=== PATIENT | female | born 1975 | race Caucasian/White ===

== ENCOUNTER 2021-12-01 11:29 | Outpatient (CLI) | payer MEDICAID, SELFPAY ==
[2021-12-01 15:25] LABS: Albumin* 4.5 g/dL (3.3-5.0); Chloride* 105 mmol/L (96-114)
[2021-12-01 15:26] LABS: Potassium* 4.8 mmol/L (3.6-5.1); Sodium* 142 mmol/L (135-149)
[2021-12-01 15:28] LABS: Aspartate Amino Transferase* 28 U/L (12-35); Bilirubin Total* 0.4 mg/dL (0.1-1.5); Carbon Dioxide* 29 mmol/L (20-32); Creatinine* 1.1 mg/dL (0.5-1.5); Estimated Glomerular Filt Rate 64 ml/min
[2021-12-01 15:29] LABS: Alanine Aminotransferase* 18 U/L (4-35); Alkaline Phosphatase* 120 U/L (40-150); Blood Urea Nitrogen* 15 mg/dL (5-24); Calcium* 9.9 mg/dL (8.4-10.6); Glucose* 105 mg/dL (60-115)
== END 2021-12-01 11:30 | disposition home or self-care (01) ==
PROVIDERS: PCP Family Medicine; Visit Provider Family Medicine
DX: D64.9 Anemia, unspecified (principal); E03.9 Hypothyroidism, unspecified; E78.5 Hyperlipidemia, unspecified; I10 Essential (primary) hypertension; I21.09 ST elevation (STEMI) myocardial infarction involving other coronary artery of anterior wall; I25.10 Atherosclerotic heart disease of native coronary artery without angina pectoris
CPT/HCPCS: 80053; 84443

== ENCOUNTER 2022-03-15 13:52 | Outpatient (CLI) | payer MEDICAID, SELFPAY | END 2022-03-15 13:53 | disposition home or self-care (01) | PROVIDERS: PCP Family Medicine; Visit Provider Family Medicine | DX: E03.9 Hypothyroidism, unspecified (principal); E78.5 Hyperlipidemia, unspecified; I10 Essential (primary) hypertension | CPT/HCPCS: 84443 ==

== ENCOUNTER 2022-04-12 14:34 | Outpatient (CLI) | payer MEDICAID, SELFPAY | END 2022-04-12 14:35 | disposition home or self-care (01) | PROVIDERS: PCP Family Medicine; Visit Provider Family Medicine | DX: E03.9 Hypothyroidism, unspecified (principal); E66.9 Obesity, unspecified; I10 Essential (primary) hypertension; D64.9 Anemia, unspecified | CPT/HCPCS: 80076; 83690 ==

== ENCOUNTER 2022-06-11 20:09 | Emergency (ER) | payer MEDICAID, SELFPAY ==
[2022-06-11 21:05] VITALS: BP 164/118; PULSE 97; RESP 16; TEMP 36.7; O2SAT 97; BMI 32.9
--- NOTE | 2022-06-11 22:11 | ED.ABDPAIN ---
HPI - Abdominal Pain General Time Seen by Provider: 22:11 Date Seen: 06/11/22 Chief Complaint: Abdominal Pain Stated Complaint: lower abdominal and lower back pain Time Seen by Provider: 06/11/22 22:11 Source: patient, RN notes reviewed and other (Urgent care provider) Mode of arrival: ambulatory Limitations: no limitations History of Present Illness HPI narrative: Courtney is a 47-year-old female with history of 3 coronary stents 2 years ago, history of cervical cancer with retained uterus but oophorectomy and fallopian tube removal who comes to the emergency room for evaluation regarding right flank and right lower quadrant pain. Patient notes that she awoke this morning and describes pain in her right lower flank that is radiating around to her right lower quadrant. She states that she also has some discomfort radiating into her anterior upper thighs. She notes no fever or chills. She is mildly nauseated. She has had loose stools but denies any diarrhea or blood in her stools. She states that her urine was very concentrated but she has no pain with urination. This has not happened to her in the past. She denies any recent trauma. Movement somewhat increases her discomfort she does feel bloated and feels like she has gained weight lately. She has not taken anything for pain. She was initially seen in urgent care at which time they felt that she needed to come to the emergency room for CT for possible kidney stones. Patient has had removal of both ovaries, fallopian tubes as well as appendix. Related Data Home Medications Medication Instructions Recorded Confirmed famotidine 40 mg tablet 40 mg PO DAILY 12/01/21 06/11/22 omeprazole 40 mg capsule,delayed 40 mg PO BID 12/01/21 06/11/22 release ondansetron HCl 4 mg tablet 4 mg PO TID PRN 12/01/21 06/11/22 Previous Rx's Medication Instructions Recorded aspirin 81 mg tablet,delayed 81 mg PO QDAY #30 tabs 10/23/21 release (Adult Low Dose Aspirin) buspirone 7.5 mg tablet 7.5 mg PO DIRECTED #90 tabs 12/01/21 carvedilol 6.25 mg tablet 6.25 mg PO BID #90 tabs 12/01/21 lorazepam 1 mg tablet 1 mg PO TID PRN anxiety #30 tabs 12/01/21 losartan 50 mg tablet 50 mg PO DAILY #90 tabs 12/01/21 rosuvastatin 20 mg tablet 20 mg PO DAILY #90 tabs 12/01/21 spironolactone 25 mg tablet 25 mg PO DAILY #90 tabs 12/01/21 levothyroxine 100 mcg tablet 100 mcg PO QDAY #90 tabs 03/16/22 (Synthroid) aluminum hydrox-magnesium carb 254 10 ml PO TID PRN dyspepsia #355 mL 04/12/22 mg-237.5 mg/5 mL oral suspension (Gaviscon Extra Strength) albuterol sulfate 1.25 mg/3 mL 1.25 mg (3 mL) inhalation QID PRN 04/19/22 solution for nebulization bronchospasm #90 mL albuterol sulfate 90 mcg/actuation 2 puff inhalation Q6H PRN 04/19/22 aerosol inhaler shortness of breath or wheezing #8.5 grams nebulizer and compressor #1 ea 04/19/22 Allergies Allergy/AdvReac Type Severity Reaction Status Date / Time No Known Allergies Allergy Unknown Verified 06/11/22 23:06 Review of Systems Status of ROS Reports: 10 or more systems reviewed and unremarkable except as noted in History and below Const Reports: change in weight (Seems increased); Denies: fever or chills Eyes Denies: change in vision ENMT Denies: throat pain, neck pain or difficulty swallowing Cardio Denies: chest pain, swelling of feet/ankles, lightheadedness or shortness of breath with exertion Resp Denies: shortness of breath or cough GI Reports: abdominal pain, nausea and diarrhea (Loose stools. Not watery.); Denies: vomiting or difficulty swallowing Denies: painful urination or urinary frequency Musculo Reports: back pain; Denies: neck pain Integ/Breast Denies: rash Neuro Denies: headache or numbness in extremities Endo Denies: excessive urination PFSH PFS Medical History Hypothyroid ?E03.9 - Hypothyroidism, unspecified (ICD-10) Noncompliance with medication regimen ?Z91.14 - Patient's other noncompliance with medication regimen (ICD-10) Obesity ?E66.9 - Obesity, unspecified (ICD-10) Social History Smoking Status: Current every day smoker How often do you have a drink containing alcohol: never AUDIT-C Alcohol total score: 0 Non-prescribed substance use: denies use Little interest or pleasure in doing things: several days Feeling down, depressed, or hopeless: not at all Exam Narrative: Exam Narrative: Courtney is alert and oriented. She is nontoxic in appearance. External ears eyes nose clear. Heart with regular rate and rhythm lungs are clear to auscultation. Abdomen is protrude her aunt. Tenderness noted in the right upper quadrant right lateral abdomen is maximum discomfort. Right lower quadrant and to a certain extent suprapubic area. She also had CVA tenderness with percussion on the right. Flexion of her hip increase her back pain. Internal rotation external rotation did not change her discomfort. Moving all extremities. Const: Vital Signs, click to edit/add: Vital Signs - 24 hr 06/11/22 21:05 Temperature 98.1 F Pulse Rate [Left P ulse Oximeter] 97 Respiratory Rate 16 Blood Pressure [Ri ght Upper Arm] 164/118 H Pulse Oximetry 97 Oxygen Delivery Me thod Room Air Documenting provider has reviewed patient's vital signs: yes Course Course Hospital Course: Differential diagnosis includes but is not limited to viral gastroenteritis, gastritis, pancreatitis, hepatitis, cholecystitis, bowel obstruction, urinary tract infection, kidney infection, ureteral colic secondary to stone. Will place IV and give normal saline, morphine, Zofran. Will check CBC, comprehensive panel, lipase, urinalysis and ordered CT of the abdomen and pelvis with contrast. Reevaluation(s) Reevaluation #1: Patient notes no improvement with morphine. Will try some Toradol at this time. CT is read as normal by Radiology. Urinalysis without evidence of UTI. Patient states that now does hurt to urinate. Vital Signs Vital signs: Initial Vital Signs Temperature 98.1 F 06/11/22 21:05 Temperature Source Temporal Artery Scan 06/11/22 21:05 Pulse Rate 97 06/11/22 21:05 Respiratory Rate 16 06/11/22 21:05 Blood Pressure 164/118 H 06/11/22 21:05 Blood Pressure Mean 133 H 06/11/22 21:05 Blood Pressure Position Sitting 06/11/22 21:05 Pulse Oximetry 97 05/01/23 21:05 Oxygen Delivery Method Room Air 05/01/23 21:05 Vital Signs Temperature 98.1 F 06/11/22 21:05 Pulse Rate 97 06/11/22 21:05 Respiratory Rate 16 06/11/22 21:05 Blood Pressure 164/118 H 06/11/22 21:05 Pulse Oximetry 97 06/11/22 21:05 Oxygen Delivery Method Room Air 06/11/22 21:05 Temperature 98.1 F 06/11/22 21:05 Pulse Rate 97 06/11/22 21:05 Respiratory Rate 16 06/11/22 21:05 Blood Pressure 164/118 H 06/11/22 21:05 Pulse Oximetry 97 06/11/22 21:05 Oxygen Delivery Method Room Air 06/11/22 21:05 MDM - Abdominal Pain MDM Narrative Medical decision making narrative: 1. Abdominal pain-no definitive cause noted. Patient noted some dysuria while she is here. But there is really no blood in her urine. No fever or leukocytosis or elevated CRP as well. CT did not show any definitive cause of discomfort. At this time with reassuring labs and CTA will send patient home. Morphine did not work for her and thus we are giving her some Toradol. Will discharge her home with Flexeril 10 mg p.o. b.i.d. with no refills. I will also treat her with Macrobid as she is complaining of dysuria. Will await the urine culture. She may discontinue this after the urine cultures returned if it does not show any bacterial growth. Recommend follow-up with primary MD for recheck. 2. Disposition-home at this time. Follow-up as needed. Return for worsening symptoms. Medical Records Attestation: I reviewed the patient's medical records. Lab Data Attestation: I reviewed the patient's lab results. Labs: Lab Results 06/11/22 06/11/22 Range/Units 22:30 22:43 WBC 7.53 (4.50-11.00) K/uL RBC 5.49 H (4.00-5.20) m/uL Hgb 15.7 (12.0-16.0) gm/dL Hct 47.8 (33.0-51.0) % MCV 87 (80-100) fL MCH 29 (26-34) pg MCHC 33 (32-36) gm/dL RDW Coeff of Marsha 14.3 (11.5-15.5) % Plt Count 235 (140-440) K/uL Neut % (Auto) 56.2 (42.0-72.0) % Lymph % (Auto) 28.6 (20-44) % Hendricks % (Auto) 7.0 (0.0-11.0) % Eos % (Auto) 7.4 H (0.0-7.0) % Baso % (Auto) 0.3 (0.0-3.0) % Neut # (Auto) 4.23 (1.7-7.0) K/uL Lymph # (Auto) 2.15 (0.90-2.90) K/uL Hendricks # (Auto) 0.50 (0.00-0.90) K/UL Eos # (Auto) 0.60 H (0.00-0.50) K/uL Baso # (Auto) 0.02 (0.00-0.30) K/uL Sodium 142 (135-149) mmol/L Potassium 3.8 (3.6-5.1) mmol/L Chloride 105 (96-114) mmol/L Carbon Dioxide 28 (20-32) mmol/L BUN 10 (5-24) mg/dL Creatinine 0.9 (0.5-1.5) mg/dL Estimated Creat Clear 62.43 Estimated GFR 80 ml/min Glucose 109 (60-115) mg/dL Calcium 9.7 (8.4-10.6) mg/dL Total Bilirubin 0.5 (0.1-1.5) mg/dL AST 26 (12-35) U/L ALT 26 (4-35) U/L Alkaline Phosphatase 110 (40-150) U/L C-Reactive Protein 0.6 (0.5-1.0) mg/dL Total Protein 7.9 (6.0-8.3) g/dL Albumin 4.9 (3.3-5.0) g/dL Lipase 90 (23-300) U/L Urine Color Yellow (Yellow) Urine Appearance Slightly Cloudy A (Clear) Urine pH 7.0 (5.0-8.5) Ur Specific [place] 1.020 (1.000-1.030) Urine Protein Negative (Negative) Urine Glucose (UA) Negative (Negative) Urine Ketones Negative (Negative) Urine Blood Trace-intact A (Negative) Urine Nitrite Negative (Negative) Urine Bilirubin Negative (Negative) Urine Urobilinogen 0.2 (0.2-1.0) Ur Leukocyte Esterase Negative (Negative) Urine RBC 0-2 (0-2) Urine WBC 0-2 (0-5) Ur Squamous Epith Cells Few (None-Few) Urine Bacteria None (None) Imaging Data CT scan - abdomen: Attestation: I have reviewed the pertinent imaging results. Radiologist's impression: Lower chest: Unremarkable.? Liver: Hepatic steatosis. Spleen: Unremarkable.? Pancreas: Unremarkable.? Gallbladder and bile ducts: Unremarkable.? Adrenal glands: Unremarkable.? Kidneys: No renal stone or hydronephrosis. Normal enhancement the renal parenchyma. GI tract: Colonic diverticulosis. Appendix is not visualized. No inflammatory changes in the pericecal region. Vascular structures: Aortoiliac calcifications. Lymph nodes: Unremarkable.? Miscellaneous: Unremarkable.? No free air or significant free fluid.? Pelvic Organs: Unremarkable.? Bones: Unremarkable for age.? IMPRESSION: The appendix is not visualized but no inflammatory changes are identified in the pericecal region. Normal appearance of the kidneys. Colonic diverticulosis. Hepatic steatosis. Discharge Plan Discharge Clinical Impression: Dysuria, Abdominal pain Patient Disposition: Home, Self-Care Condition: Improved Additional Instructions: Recommend initiation of Macrobid as the antibiotic just in case you have a bladder infection. At the culture comes back negative you may discontinue this medication. I recommend following up with your primary MD for recheck if pain is ongoing. Ibuprofen or Tylenol may be used for discomfort. Flexeril is a muscle relaxer and you may use this for pain. This may be musculoskeletal pain. Note that is Flexeril makes you tired N/C would not want to use alcohol nor drive with this medication. Note for no work today or tomorrow. Return for worsening symptoms, fever. Prescriptions: No Action omeprazole 40 mg capsule,delayed release(DR/EC) 40 mg PO BID famotidine 40 mg tablet 40 mg PO DAILY ondansetron HCl 4 mg tablet 4 mg PO TID PRN carvedilol 6.25 mg tablet 6.25 mg PO BID Qty: 90 5RF Rx Instructions: 1 in am 2 at night buspirone 7.5 mg tablet 7.5 mg PO DIRECTED Qty: 90 5RF Rx Instructions: 1 tablet in am and 2 at night lorazepam 1 mg tablet 1 mg PO TID PRN (Reason: anxiety) Qty: 30 3RF levothyroxine [Synthroid] 100 mcg tablet 100 mcg PO QDAY Qty: 90 1RF Gaviscon Extra Strength 254-237.5 mg/5 mL suspension 10 ml PO TID PRN (Reason: dyspepsia) Qty: 355 1RF aspirin [Adult Low Dose Aspirin] 81 mg tablet,delayed release (DR/EC) 81 mg PO QDAY Qty: 30 0RF losartan 50 mg tablet 50 mg PO DAILY Qty: 90 1RF spironolactone 25 mg tablet 25 mg PO DAILY Qty: 90 1RF rosuvastatin 20 mg tablet 20 mg PO DAILY Qty: 90 1RF albuterol sulfate 90 mcg/actuation HFA aerosol inhaler 2 puff inhalation Q6H PRN (Reason: shortness of breath or wheezing) Qty: 8.5 1RF albuterol sulfate 1.25 mg/3 mL solution for nebulization 1.25 mg inhalation QID PRN (Reason: bronchospasm) Qty: 90 1RF (DME) nebulizer and compressor Device See Rx Instructions .Route Qty: 1 0RF Rx Instructions: As directed Follow Up/Referrals: Fadi Quick MD [Primary Care Provider] - Stand Alone Forms: [facility] Info Instructions
--- NOTE | 2022-06-11 22:18 | CRLHL7_ITS ---
For Patients: As a result of the Century Cures Act, medical imaging exams and procedure reports are released immediately into your electronic medical record. You may view this report before your referring provider. If you have questions, please contact your health care provider. INDICATION: Right lower quadrant and flank pain since this morning TECHNIQUE: CT abdomen and pelvis acquired with 89 cc Isovue 370 IV contrast. COMPARISON: Right upper quadrant ultrasound May 26, 2019 FINDINGS: Lower chest: Unremarkable. Liver: Hepatic steatosis. Spleen: Unremarkable. Pancreas: Unremarkable. Gallbladder and bile ducts: Unremarkable. Adrenal glands: Unremarkable. Kidneys: No renal stone or hydronephrosis. Normal enhancement the renal parenchyma. GI tract: Colonic diverticulosis. Appendix is not visualized. No inflammatory changes in the pericecal region. Vascular structures: Aortoiliac calcifications. Lymph nodes: Unremarkable. Miscellaneous: Unremarkable. No free air or significant free fluid. Pelvic Organs: Unremarkable. Bones: Unremarkable for age. IMPRESSION: The appendix is not visualized but no inflammatory changes are identified in the pericecal region. Normal appearance of the kidneys. Colonic diverticulosis. Hepatic steatosis. Please note that all CT scans at this facility use dose modulation, iterative reconstruction, and/or weight-based dosing when appropriate to reduce radiation dose to as low as reasonably achievable. Dictated by Cheyenne Robles MD @ 06/12/2022 12:06:42 AM (Electronically Signed)
[2022-06-11 22:43] LABS: Appearance Urine Slightly Cloudy (Clear); Bilirubin Urine Negative (Negative); Blood Urine Trace-intact (Negative); Color Urine Yellow (Yellow); Glucose Urine Negative (Negative); Ketones Urine Negative (Negative); Leukocyte Esterase Urine Negative (Negative); Nitrite Urine Negative (Negative); Protein Urine Negative (Negative); Urobilinogen Urine 0.2 (0.2-1.0)
[2022-06-11 22:52] LABS: Basophils Absolute Auto 0.02 K/uL (0.00-0.30); Basophils Percent Auto 0.3 % (0.0-3.0); Eosinophils Percent Auto 7.4 % (0.0-7.0); Hematocrit 47.8 % (33.0-51.0); Hemoglobin* 15.7 gm/dL (12.0-16.0); Immature Granulocytes Abs Auto 0.04 K/uL (0.00-0.30); Immature Granulocytes Pct Auto 0.5 %; Lymphocytes Absolute Auto 2.15 K/uL (0.90-2.90); Lymphocytes Percent Auto 28.6 % (20-44); Mean Corpuscular HGB Conc 33 gm/dL (32-36); Mean Corpuscular Hemoglobin 29 pg (26-34); Mean Corpuscular Volume 87 fL (80-100); Neutrophils Absolute Auto 4.23 K/uL (1.7-7.0); Neutrophils Percent Auto 56.2 % (42.0-72.0); Platelet Count* 235 K/uL (140-440); RDW Coefficient of Variation % 14.3 % (11.5-15.5); Red Blood Count 5.49 m/uL (4.00-5.20); White Blood Count* 7.53 K/uL (4.50-11.00)
[2022-06-11 23:02] LABS: RBC Urine 0-2 (0-2); Squamous Epithelial Cell Urine Few (None-Few); WBC Urine 0-2 (0-5)
[2022-06-11 23:05] LABS: Slide Review Reflex No
[2022-06-11 23:08] LABS: Albumin* 4.9 g/dL (3.3-5.0); Chloride* 105 mmol/L (96-114); Potassium* 3.8 mmol/L (3.6-5.1); Sodium* 142 mmol/L (135-149)
[2022-06-11] MEDS: ONDANSETRON 2 MG/ML inj 4 MG IVP (23:08)
[2022-06-11] MEDS: 0.9 % SODIUM CHLORIDE 1000 ml 1,000 ML IV (23:08)
[2022-06-11] MEDS: MORPHINE 4 MG/ML INJ IVP (23:08)
[2022-06-11 23:10] LABS: Creatinine* 0.9 mg/dL (0.5-1.5); Est. Creatinine Clearance* 62.43; Estimated Glomerular Filt Rate 80 ml/min
[2022-06-11 23:11] LABS: Alkaline Phosphatase* 110 U/L (40-150); Aspartate Amino Transferase* 26 U/L (12-35); Bilirubin Total* 0.5 mg/dL (0.1-1.5); Blood Urea Nitrogen* 10 mg/dL (5-24); Carbon Dioxide* 28 mmol/L (20-32); Glucose* 109 mg/dL (60-115); Lipase* 90 U/L (23-300); Total Protein* 7.9 g/dL (6.0-8.3)
[2022-06-11 23:12] LABS: Alanine Aminotransferase* 26 U/L (4-35); Calcium* 9.7 mg/dL (8.4-10.6)
[2022-06-11 23:14] LABS: C Reactive Protein* 0.6 mg/dL (0.5-1.0)
[2022-06-12] MEDS: KETOROLAC 15 MG/ML inj IVP (00:38)
== END 2022-06-12 00:58 | disposition home or self-care (01) ==
PROVIDERS: Emergency Provider Family Medicine; PCP Family Medicine
DX: R10.9 Unspecified abdominal pain (principal); R30.0 Dysuria
CPT/HCPCS: 36415; 74177; 80053; 81001; 83690; 85025; 86140; 96374; 96375; 99284; 99285; J1885; J2270; J2405; J7030; Q9967

== ENCOUNTER 2022-06-14 17:18 | Emergency (ER) | payer MEDICAID, SELFPAY ==
[2022-06-14] VITALS (14 sets, daily range): BP systolic 142–162; BP diastolic 95–120; PULSE 75–84; RESP 18; TEMP 35.8; O2SAT 97–98; BMI 34.0
--- NOTE | 2022-06-14 17:35 | ED.ABDPAIN ---
HPI - Abdominal Pain General Time Seen by Provider: 17:35 Date Seen: 06/14/22 Chief Complaint: Abdominal Pain Stated Complaint: lower abdominal pain that runs down to legs Time Seen by Provider: 06/14/22 17:36 Source: patient, RN notes reviewed and old records reviewed Mode of arrival: ambulatory Limitations: no limitations History of Present Illness HPI narrative: Courtney is a very pleasant 47-year-old female with history of KS, 2 stents placed, cervical cancer who comes to the emergency room for evaluation regarding abdominal pain that is continuing. Patient initially seen by myself on SaturdayJune 11 after having experienced abdominal pain for for that day. A full workup including laboratory values and a CT did not show any evidence of abnormality in patient was discharged home. She had required narcotic pain medications while awaiting her labs. I did send her home with Abelardoeril after discussion with surgery who felt this was most likely musculoskeletal. Patient returns today as she has had continued pain. She states the pain has somewhat migrated from her right flank right lower quadrant into her left abdomen. She states this pain is terrible and she tried to work but could not sit still. She has tried home medications and they have not worked. She has been on Keflex for a potential UTI and notes that she really has no improvement of discomfort. She has not had fever chills. She has had a few episodes of intermittent vomiting. She has not had any diarrhea but continues to have occasional loose stools. She notes that she was going to follow-up with her primary MD as per our suggestion but her primary center back to the emergency room. Related Data Home Medications Medication Instructions Recorded Confirmed famotidine 40 mg tablet 40 mg PO DAILY 12/01/21 06/11/22 omeprazole 40 mg capsule,delayed 40 mg PO BID 12/01/21 06/11/22 release ondansetron HCl 4 mg tablet 4 mg PO TID PRN 12/01/21 06/11/22 Previous Rx's Medication Instructions Recorded aspirin 81 mg tablet,delayed 81 mg PO QDAY #30 tabs 10/23/21 release (Adult Low Dose Aspirin) buspirone 7.5 mg tablet 7.5 mg PO DIRECTED #90 tabs 12/01/21 carvedilol 6.25 mg tablet 6.25 mg PO BID #90 tabs 12/01/21 lorazepam 1 mg tablet 1 mg PO TID PRN anxiety #30 tabs 12/01/21 losartan 50 mg tablet 50 mg PO DAILY #90 tabs 12/01/21 rosuvastatin 20 mg tablet 20 mg PO DAILY #90 tabs 12/01/21 spironolactone 25 mg tablet 25 mg PO DAILY #90 tabs 12/01/21 levothyroxine 100 mcg tablet 100 mcg PO QDAY #90 tabs 03/16/22 (Synthroid) aluminum hydrox-magnesium carb 254 10 ml PO TID PRN dyspepsia #355 mL 04/12/22 mg-237.5 mg/5 mL oral suspension (Gaviscon Extra Strength) albuterol sulfate 1.25 mg/3 mL 1.25 mg (3 mL) inhalation QID PRN 04/19/22 solution for nebulization bronchospasm #90 mL albuterol sulfate 90 mcg/actuation 2 puff inhalation Q6H PRN 04/19/22 aerosol inhaler shortness of breath or wheezing #8.5 grams nebulizer and compressor #1 ea 04/19/22 hydrocodone 5 mg-acetaminophen 325 1 tab PO Q6H #10 tabs 06/14/22 mg tablet Allergies Allergy/AdvReac Type Severity Reaction Status Date / Time No Known Allergies Allergy Unknown Verified 06/14/22 19:17 Review of Systems Status of ROS Reports: 10 or more systems reviewed and unremarkable except as noted in History and below Const Denies: fever or chills ENMT Denies: throat pain, neck pain or throat swelling Cardio Denies: chest pain, palpitations or shortness of breath with exertion Resp Denies: shortness of breath, cough or wheezing GI Reports: abdominal pain, nausea and vomiting; Denies: diarrhea Denies: urinary frequency Musculo Denies: back pain or neck pain Allergy/Immuno Denies: throat swelling or wheezing PFSH PFSH Medical History Noncompliance with medication regimen ?Z91.14 - Patient's other noncompliance with medication regimen (ICD-10) Obesity ?E66.9 - Obesity, unspecified (ICD-10) Hypothyroid ?E03.9 - Hypothyroidism, unspecified (ICD-10) Social History Smoking Status: Current every day smoker How often do you have a drink containing alcohol: never AUDIT-C Alcohol total score: 0 Non-prescribed substance use: denies use Little interest or pleasure in doing things: several days Feeling down, depressed, or hopeless: not at all service: No Exam Narrative: Exam Narrative: Patient is alert and oriented. Nontoxic in appearance. Heart with regular rate and rhythm. Lungs are clear bilaterally. Abdomen is soft. Diminished bowel sounds but no high-pitched sounds. Lower extremities without edema. Tenderness noted in the right lower suprapubic and left lower quadrants. No rebound tenderness. Const: Vital Signs, click to edit/add: Vital Signs - 24 hr 06/14/22 17:32 06/14/22 18:15 06/14/22 18:31 Temperature 96.4 F L Pulse Rate Pulse Rate [Left P ulse Oximeter] 82 Respiratory Rate 18 Blood Pressure 162/109 H 157/99 H Blood Pressure [Le ft Upper Arm] 149/109 H Pulse Oximetry 97 Oxygen Delivery Me thod Room Air 06/14/22 19:02 06/14/22 19:31 06/14/22 19:37 Temperature Pulse Rate 84 Pulse Rate [Left P ulse Oximeter] Respiratory Rate Blood Pressure 157/103 H 142/95 H Blood Pressure [Le ft Upper Arm] Pulse Oximetry 97 Oxygen Delivery Me thod 06/14/22 19:45 06/14/22 20:00 06/14/22 20:01 Temperature Pulse Rate 78 81 75 Pulse Rate [Left P ulse Oximeter] Respiratory Rate Blood Pressure 156/104 H Blood Pressure [Le ft Upper Arm] Pulse Oximetry 97 98 98 Oxygen Delivery Me thod 06/14/22 20:15 06/14/22 20:30 06/14/22 20:32 Temperature Pulse Rate 76 75 75 Pulse Rate [Left P ulse Oximeter] Respiratory Rate Blood Pressure 158/109 H Blood Pressure [Le ft Upper Arm] Pulse Oximetry 97 98 97 Oxygen Delivery Me thod 06/14/22 20:45 06/14/22 21:01 Temperature Pulse Rate 83 Pulse Rate [Left P ulse Oximeter] Respiratory Rate Blood Pressure 156/120 H Blood Pressure [Le ft Upper Arm] Pulse Oximetry 97 Oxygen Delivery Me thod Documenting provider has reviewed patient's vital signs: yes Course Course Hospital Course: At this time pain continues to be out of proportion to the exam. Will repeat the labs and I do think we are in a position where a where we have to repeat the CT CT given the level of her discomfort. I did state I would not be giving her any narcotics until I had reason to do so but did offer her Toradol 15 mg IV which she has taken. In addition 1 L of normal saline will be infused. Labs will be CBC, comprehensive, bilirubin, CRP. Vital Signs Vital signs: Initial Vital Signs Temperature 96.4 F L 06/14/22 17:32 Temperature Source Temporal Artery Scan 06/14/22 17:32 Pulse Rate 82 06/14/22 17:32 Pulse Rhythm Regular 06/14/22 17:32 Pulse Strength 3+ Normal 06/14/22 17:32 Respiratory Rate 18 06/14/22 17:32 Blood Pressure 149/109 H 06/14/22 17:32 Blood Pressure Mean 122 H 06/14/22 17:32 Blood Pressure Position Sitting 06/14/22 17:32 Pulse Oximetry 97 06/14/22 17:32 Oxygen Delivery Method Room Air 06/14/22 17:32 Vital Signs Temperature 96.4 F L 06/14/22 17:32 Pulse Rate 82 06/14/22 17:32 Respiratory Rate 18 06/14/22 17:32 Blood Pressure 149/109 H 06/14/22 17:32 Pulse Oximetry 97 06/14/22 17:32 Oxygen Delivery Method Room Air 06/14/22 17:32 Temperature 96.4 F L 06/14/22 17:32 Pulse Rate 83 06/14/22 20:45 Respiratory Rate 18 06/14/22 17:32 Blood Pressure 156/120 H 06/14/22 21:01 Pulse Oximetry 97 06/14/22 20:45 Oxygen Delivery Method Room Air 06/14/22 17:32 MDM - Abdominal Pain MDM Narrative Medical decision making narrative: 1. Diverticulitis-patient noted to have potential diverticulitis in her sigmoid colon based on CT. Incomplete picture but probably the most likely scenario that is causing her pain. Even so however patient is describing intense pain to me and laboratory values are reassuring. I have asked that she start Augmentin 875 mg p.o. b.i.d. times 10 days. Would have her use ibuprofen for pain and I will give her a small amount of Rossiter for breakthrough pain. Two tablets given from our stock tonight as we have no Rossiter in instant meds. Further 10 tablets given to the pharmacy. 2. Ocptvuexzxx-hqlxqa-ze with surgery as this pain seems out of proportion to the findings. Push fluids. Return for fever, vomiting, worsening symptoms. Note I did explain to patient that no further narcotics for this particular problem will be giving out of the emergency room. Further narcotics will need to be controlled by 1 physician and that should be her primary MD. Medical Records Attestation: I reviewed the patient's medical records. Lab Data Attestation: I reviewed the patient's lab results. Labs: Lab Results 06/14/22 06/14/22 06/14/22 Range/Units 17:48 18:00 18:04 WBC 7.14 (4.50-11.00) K/uL RBC 5.05 (4.00-5.20) m/uL Hgb 14.5 (12.0-16.0) gm/dL Hct 43.9 (33.0-51.0) % MCV 87 (80-100) fL MCH 29 (26-34) pg MCHC 33 (32-36) gm/dL RDW Coeff of Marsha 14.3 (11.5-15.5) % Plt Count 192 (140-440) K/uL Neut % (Auto) 61.5 (42.0-72.0) % Lymph % (Auto) 24.2 (20-44) % [place] % (Auto) 8.3 (0.0-11.0) % Eos % (Auto) 5.5 (0.0-7.0) % Baso % (Auto) 0.4 (0.0-3.0) % Neut # (Auto) 4.39 (1.7-7.0) K/uL Lymph # (Auto) 1.73 (0.90-2.90) K/uL [place] # (Auto) 0.60 (0.00-0.90) K/UL Eos # (Auto) 0.39 (0.00-0.50) K/uL Baso # (Auto) 0.03 (0.00-0.30) K/uL Sodium 139 (135-149) mmol/L Potassium 3.9 (3.6-5.1) mmol/L Chloride 103 (96-114) mmol/L Carbon Dioxide 26 (20-32) mmol/L BUN 8 (5-24) mg/dL Creatinine 1.0 (0.5-1.5) mg/dL Estimated Creat Clear 53.61 Estimated GFR 71 ml/min Glucose 101 (60-115) mg/dL Calcium 9.7 (8.4-10.6) mg/dL Total Bilirubin 0.6 (0.1-1.5) mg/dL AST 23 (12-35) U/L ALT 20 (4-35) U/L Alkaline Phosphatase 95 (40-150) U/L C-Reactive Protein 0.6 (0.5-1.0) mg/dL Total Protein 7.4 (6.0-8.3) g/dL Albumin 4.5 (3.3-5.0) g/dL Lipase 97 (23-300) U/L Urine Color Yellow (Yellow) Urine Appearance Clear (Clear) Urine pH 6.0 (5.0-8.5) Ur Specific [place] <= 1.005 (1.000-1.030) Urine Protein Negative (Negative) Urine Glucose (UA) Negative (Negative) Urine Ketones Negative (Negative) Urine Blood Trace-intact A (Negative) Urine Nitrite Negative (Negative) Urine Bilirubin Negative (Negative) Urine Urobilinogen 0.2 (0.2-1.0) Ur Leukocyte Esterase Negative (Negative) Urine RBC 0-2 (0-2) Urine WBC 0-2 (0-5) Ur Squamous Epith Cells Few (None-Few) Urine Bacteria None (None) POC Troponin I 0.00 L (0.01-0.04) ng/ml Imaging Data CT scan - abdomen: Attestation: I have reviewed the pertinent imaging results. Radiologist's impression: Lower chest: Bibasilar dependent atelectasis. Liver: Unremarkable. Normal in size and attenuation. No suspicious masses. Gallbladder and bile ducts: Unremarkable. No stones or inflammation. No biliary dilatation. Pancreas: Unremarkable. No mass or inflammation. Spleen: Unremarkable. Normal in size. No masses. Adrenal glands: Unremarkable. No nodules. Kidneys: Unremarkable. No suspicious masses, stones, or hydronephrosis. GI tract: Subtle sigmoid colon thickening without kesha inflammatory changes. Scattered sigmoid diverticuli. Appendix is absent. Vasculature: Abdominal aorta is normal in caliber. Mesenteric arteries are patent. Lymph nodes: No lymphadenopathy. Peritoneum/Abdominal Wall: Unremarkable. No sign of mass or infiltration. No free air or significant free fluid. Pelvis: Unremarkable. Bones: Unremarkable for age. IMPRESSION: Mild colonic thickening in the sigmoid colon may be related to incomplete distention however could be seen in the setting of mild or early diverticulitis or colitis. ECG Data Attestation: I personally reviewed and interpreted this ECG as follows: ECG interpretation date: 06/14/22 Interpretation: EKG by my read shows sinus rhythm at a rate of 81. RS are configuration noted in 2 3 AVF. No acute changes noted however. Discharge Plan Discharge Clinical Impression: Diverticulitis Patient Disposition: Home, Self-Care Condition: Improved Instructions: Diverticulitis (ED) Additional Instructions: Start antibiotics tonight. Augmentin will be put into instant meds. Ibuprofen 600 mg every 8 hours as needed for pain. You may use Vicodin which is a combination medication of a narcotic called hydrocodone and Tylenol for breakthrough pain. Please use this sparingly. This medicine may cause constipation so you would want to be on a stool softener. Follow-up with surgery for a recheck since your pain appears to be much greater than what we are finding on CT. It would be helpful to have a surgeons consult to make sure that we are not missing anything. Consult phone number [phone] Return to the Emergency for fever, vomiting, worsening symptoms. Prescriptions: New hydrocodone-acetaminophen 5-325 mg tablet 1 tab PO Q6H Qty: 10 0RF No Action omeprazole 40 mg capsule,delayed release(DR/EC) 40 mg PO BID famotidine 40 mg tablet 40 mg PO DAILY ondansetron HCl 4 mg tablet 4 mg PO TID PRN carvedilol 6.25 mg tablet 6.25 mg PO BID Qty: 90 5RF Rx Instructions: 1 in am 2 at night buspirone 7.5 mg tablet 7.5 mg PO DIRECTED Qty: 90 5RF Rx Instructions: 1 tablet in am and 2 at night lorazepam 1 mg tablet 1 mg PO TID PRN (Reason: anxiety) Qty: 30 3RF levothyroxine [Synthroid] 100 mcg tablet 100 mcg PO QDAY Qty: 90 1RF Gaviscon Extra Strength 254-237.5 mg/5 mL suspension 10 ml PO TID PRN (Reason: dyspepsia) Qty: 355 1RF aspirin [Adult Low Dose Aspirin] 81 mg tablet,delayed release (DR/EC) 81 mg PO QDAY Qty: 30 0RF losartan 50 mg tablet 50 mg PO DAILY Qty: 90 1RF spironolactone 25 mg tablet 25 mg PO DAILY Qty: 90 1RF rosuvastatin 20 mg tablet 20 mg PO DAILY Qty: 90 1RF albuterol sulfate 90 mcg/actuation HFA aerosol inhaler 2 puff inhalation Q6H PRN (Reason: shortness of breath or wheezing) Qty: 8.5 1RF albuterol sulfate 1.25 mg/3 mL solution for nebulization 1.25 mg inhalation QID PRN (Reason: bronchospasm) Qty: 90 1RF (DME) nebulizer and compressor Device See Rx Instructions .Route Qty: 1 0RF Rx Instructions: As directed Follow Up/Referrals: Fadi Quick MD [Primary Care Provider] - Stand Alone [facility] Info [facility]
[2022-06-14] MEDS: 0.9 % SODIUM CHLORIDE 1000 ml 1,000 ML IV (18:15)
[2022-06-14] MEDS: KETOROLAC 15 MG/ML inj IVP (18:15)
[2022-06-14 18:17] LABS: Basophils Absolute Auto 0.03 K/uL (0.00-0.30); Basophils Percent Auto 0.4 % (0.0-3.0); Eosinophils Absolute Auto 0.39 K/uL (0.00-0.50); Eosinophils Percent Auto 5.5 % (0.0-7.0); Hematocrit 43.9 % (33.0-51.0); Hemoglobin* 14.5 gm/dL (12.0-16.0); Immature Granulocytes Abs Auto 0.01 K/uL (0.00-0.30); Immature Granulocytes Pct Auto 0.1 %; Lymphocytes Absolute Auto 1.73 K/uL (0.90-2.90); Lymphocytes Percent Auto 24.2 % (20-44); Mean Corpuscular HGB Conc 33 gm/dL (32-36); Mean Corpuscular Hemoglobin 29 pg (26-34); Mean Corpuscular Volume 87 fL (80-100); Monocytes Percent Auto 8.3 % (0.0-11.0); Neutrophils Absolute Auto 4.39 K/uL (1.7-7.0); Neutrophils Percent Auto 61.5 % (42.0-72.0); Platelet Count* 192 K/uL (140-440); RDW Coefficient of Variation % 14.3 % (11.5-15.5); Red Blood Count 5.05 m/uL (4.00-5.20); White Blood Count* 7.14 K/uL (4.50-11.00)
[2022-06-14 18:18] LABS: Slide Review Reflex No
[2022-06-14 18:35] LABS: Albumin* 4.5 g/dL (3.3-5.0); Chloride* 103 mmol/L (96-114); Sodium* 139 mmol/L (135-149)
[2022-06-14 18:36] LABS: Potassium* 3.9 mmol/L (3.6-5.1)
[2022-06-14 18:38] LABS: Aspartate Amino Transferase* 23 U/L (12-35); Bilirubin Total* 0.6 mg/dL (0.1-1.5); Carbon Dioxide* 26 mmol/L (20-32); Est. Creatinine Clearance* 53.61; Estimated Glomerular Filt Rate 71 ml/min; Total Protein* 7.4 g/dL (6.0-8.3)
[2022-06-14 18:39] LABS: Alanine Aminotransferase* 20 U/L (4-35); Alkaline Phosphatase* 95 U/L (40-150); Blood Urea Nitrogen* 8 mg/dL (5-24); Calcium* 9.7 mg/dL (8.4-10.6); Glucose* 101 mg/dL (60-115); Lipase* 97 U/L (23-300)
[2022-06-14 18:41] LABS: C Reactive Protein* 0.6 mg/dL (0.5-1.0)
[2022-06-14 18:42] LABS: Appearance Urine Clear (Clear); Bilirubin Urine Negative (Negative); Blood Urine Trace-intact (Negative); Color Urine Yellow (Yellow); Glucose Urine Negative (Negative); Ketones Urine Negative (Negative); Leukocyte Esterase Urine Negative (Negative); Nitrite Urine Negative (Negative); Protein Urine Negative (Negative); Specific Gravity Urine <= 1.005 (1.000-1.030); Urobilinogen Urine 0.2 (0.2-1.0)
--- NOTE | 2022-06-14 18:51 | CRLHL7_ITS ---
For Patients: As a result of the Century Cures Act, medical imaging exams and procedure reports are released immediately into your electronic medical record. You may view this report before your referring provider. If you have questions, please contact your health care provider. INDICATION: Left lower quadrant pain not improving.. TECHNIQUE: CT abdomen and pelvis acquired with 89 cc Isovue 370 IV contrast. COMPARISON: None. FINDINGS: Lower chest: Bibasilar dependent atelectasis. Liver: Unremarkable. Normal in size and attenuation. No suspicious masses. Gallbladder and bile ducts: Unremarkable. No stones or inflammation. No biliary dilatation. Pancreas: Unremarkable. No mass or inflammation. Spleen: Unremarkable. Normal in size. No masses. Adrenal glands: Unremarkable. No nodules. Kidneys: Unremarkable. No suspicious masses, stones, or hydronephrosis. GI tract: Subtle sigmoid colon thickening without kesha inflammatory changes. Scattered sigmoid diverticuli. Appendix is absent. Vasculature: Abdominal aorta is normal in caliber. Mesenteric arteries are patent. Lymph nodes: No lymphadenopathy. Peritoneum/Abdominal Wall: Unremarkable. No sign of mass or infiltration. No free air or significant free fluid. Pelvis: Unremarkable. Bones: Unremarkable for age. IMPRESSION: Mild colonic thickening in the sigmoid colon may be related to incomplete distention however could be seen in the setting of mild or early diverticulitis or colitis. Please note that all CT scans at this facility use dose modulation, iterative reconstruction, and/or weight-based dosing when appropriate to reduce radiation dose to as low as reasonably achievable. Dictated by Alyse Blood MD @ 06/14/2022 8:48:16 PM (Electronically Signed)
[2022-06-14 19:06] LABS: RBC Urine 0-2 (0-2); Squamous Epithelial Cell Urine Few (None-Few); WBC Urine 0-2 (0-5)
--- NOTE | 2022-06-16 12:31 | ED.NURSE ---
[facility] called requesting diagnosis for 06/14/[address] Rasheed. Their computer system had went down that day and the prescriptions received were incomplete. Expaines dx: diverticulitis. No further questions/concerns.
== END 2022-06-14 21:19 | disposition home or self-care (01) ==
PROVIDERS: Emergency Provider Family Medicine; PCP Family Medicine
DX: K57.92 Diverticulitis of intestine, part unspecified, without perforation or abscess without bleeding (principal)
CPT/HCPCS: 36415; 74177; 80053; 81001; 83690; 84484; 85025; 86140; 93005; 96361; 96374; 99284; 99285; J1885; J7030; Q9967

== ENCOUNTER 2022-08-09 14:25 | Outpatient (CLI) | payer MEDICAID, SELFPAY | END 2022-08-09 14:26 | disposition home or self-care (01) | LOC: LKVREF 14:26 | PROVIDERS: PCP Family Medicine; Visit Provider Family Medicine | DX: E78.5 Hyperlipidemia, unspecified (principal); E66.9 Obesity, unspecified; E03.9 Hypothyroidism, unspecified | CPT/HCPCS: 80061 ==

== ENCOUNTER 2023-07-25 13:09 | Outpatient (CLI) | payer MEDICAID, SELFPAY ==
--- OUTSIDE RECORDS SUMMARY | 2023-07-25 13:12 | XMS_ITS | Clinical Summary ---
Author Organization [facility] Address [place], [place] [address] Care Team Providers Care Supervisor Asbestos Removal Name Role Phone Fadi Quick MD Primary Care Provider [phone] Allergies No known active allergies Medications Medication Sig Dispensed Refills Start Date End Date Status ketoconazole 2% topical (NIZORAL) creamIndications:Tin ea corporis Apply topically to affected area(s) 2 times daily. 1 Tube 0 06/23/2015 Active azithromycin (ZITHROMAX Z-RANDAL) 250 mg tabletIndications:Ph aryngitis, unspecified etiology,Bronchitis Take 500 mg (2 tabs) by mouth on day 1, then 250 mg (1 tab) daily for days 2-5. 6 tablet 0 10/20/2015 Active albuterol HFA 90 mcg/actuation inhalerIndications:B ronchitis Inhale 2 Puffs by mouth every 6 hours if needed. 1 Inhaler 0 10/24/2015 Active meclizine (ANTIVERT) 25 mg tabletIndications:Di zziness Take 1 tablet by mouth 3 times daily if needed for Other (Specify) (dizziness). 20 tablet 05/04/2016 Active hydrOXYzine HCl (ATARAX) 25 mg tabletIndications:De rmatitis Take 1-2 tablets by mouth every 6 hours if needed for Itching. 20 tablet 07/26/2018 Active metoprolol tartrate (LOPRESSOR) 50 mg tablet Take 50 mg by mouth once daily. Active rosuvastatin calcium (ROSUVASTATIN ORAL) Take 20 mg by mouth once daily. Active LOSARTAN-HYDROCHLORO THIAZIDE ORAL Take by mouth once daily. Active OMEPRAZOLE ORAL Take by mouth 2 times daily. Active aspirin (ECOTRIN) 81 mg enteric coated tablet Take 81 mg by mouth once daily. Active amLODIPine (NORVASC) 5 mg tablet Take 5 mg by mouth once daily. Active losartan (COZAAR) 50 mg tablet Take 50 mg by mouth once daily. Active busPIRone 7.5 mg tablet Take 7.5 mg by mouth in morning and 15 mg in evening Active carvediloL (COREG) 6.25 mg tablet Take 6.25 mg by mouth two times daily. Active fluticasone propion-salmeteroL (Advair Diskus) 500-50 mcg/Dose diskus inhaler Inhale 1 Puff by mouth two times daily. Active levothyroxine (SYNTHROID) 100 mcg tablet Take 100 mcg by mouth once daily. Active montelukast (SINGULAIR) 10 mg tablet Take 10 mg by mouth once daily. Active spironolactone (ALDACTONE) 25 mg tablet Take 25 mg by mouth once daily. Active tiotropium bromide (Spiriva Respimat) 2.5 mcg/actuation mist for inhalation Inhale 2 Puffs by mouth once daily. Active benzonatate (TESSALON) 100 mg capsuleIndications:I ntermittent asthma with acute exacerbation, unspecified asthma severity Take 1 Capsule (100 mg) by mouth 3 times daily if needed for Cough. 10 Capsule 06/30/2022 Active Active Problems Problem Noted Date Diagnosed Date Moderate persistent asthma with exacerbation Cough with hemoptysis 06/30/2022 Hyperglycemia 06/30/2022 FOUZIA (acute kidney injury) 06/30/2022 Cigarette nicotine dependence without complicati on 06/30/2022 Family History Medical History Relation Name Comments Good Health Brother Good Health Father Diabetes Mother Heart Disease Mother Relation Name Status Comments Brother Father Mother (Age 62) Social History Tobacco Use Types Packs/Day Years Used Date Smoking Tobacco: Every Day Cigarettes Alcohol Use Standard Drinks/Week Comments No 0 (1 standard drink = 0.6 oz pur e alcohol) Social Connections Answer Date Recorded Frequency of Communication with Friends and Fami ly Not on file 06/30/2022 Financial Resource Strain Answer Date R ecorded Difficulty of Paying Living Expenses Not on file 2021 Difficulty of Paying Living Expenses Not on file 2021 Sex and Gender Information Value Date Recorded Sex Assigned at Not on file Gender Identity Not on file Sexual Orientation Not on file Obstetrics History Last Filed Vital Signs Vital Sign Reading Time Taken Comments Blood Pressure 140/86 06/29/2022 9:42 PM CDT Pulse 67 06/29/2022 11:45 PM CDT Temperature 36.8 ??C (98.2 ??F) 06/29/2022 10:11 PM C DT Respiratory Rate 20 06/30/2022 12:37 AM CDT Oxygen Saturation 96% 06/29/2022 11:45 PM CDT Inhaled Oxygen Concentration - - Weight 80.7 kg (178 lb) 06/29/2022 9:42 PM CDT Height 154.9 cm (5' 1) 06/29/2022 9:42 PM CDT Body Mass Index 33.63 06/29/2022 9:42 PM CDT Plan of Treatment Health Maintenance Due Date Last Done Comments Tdap 02/09/1988 Depression screening for age 12+ 1989 HIV for age 15-65 02/09/1992 Hepatitis C screening for ag e 18-79 1995 Tetanus booster 1997 Pap test for age 21-65 1998 BMI (ht and wt on same day) for age 18+ 05/04/2017 05/04/2016, 10/24/2015, 06/23/2015 Colonoscopy through age 75 2022 Lipids for age 45-75 2022 Mammogram for age 45-75 2022 COVID-19 vaccine series ( season) 2022 Influenza for age 9-49 10/13/2023 Pneumococcal series for age 6-64 Aged Out No longer eligible b ased on patient's age to complete this topic Advance Directives * Full Code (Latest Code Status on File) Date Activated Date Inactivated Comments 06/30/2022 12:17 AM 06/30/2022 3:44 AM Question Answer Comments Code Status Discussion: Reviewed Preferences Care Teams Supervisor Asbestos Removal Relationship Specialty Start Date End Date Fadi Quick MD [id number] [place] [address] PCP - General Family Practice 04/07/20
--- OUTSIDE RECORDS SUMMARY | 2023-07-25 13:12 | XMS_ITS | Encounter Summary ---
Author Organization [facility] Address [address] [place] [id number] Care Team Providers Care Production Line Welder Name Role Phone Cheyenne Choudhury MD Primary Care Provider Fadi Quick MD Primary Care Provider [phone] Encounter Details Date Type Department Care Team (Late Contact Info) Description 05/23/2013 Records - [facility] CONVERSION Scan, Non-Provider Social History Tobacco Use Types Packs/Day Years Used Date Smoking Tobacco: Never Assessed Sex and Gender Information Value Date Recorded Sex Assigned at Not on file Gender Identity Not on file Sexual Orientation Not on file documented as of this encounter Plan of Treatment Upcoming Encounters Date Type Department Care Team ([facility] Contact Info) Description 05/04/2106 Records - [facility] CONVERSION Provider, Historical documented as of this encounter Visit Diagnoses Not on filedocumented in this encounter Additional Health Concerns Infection Onset Date Last Indicated Resolved Time Rule Out COVID-19 03/31/2022 03/31/2022 03/31/2022 8:51 PM OPERATIONS ASST Rule Out COVID-19 04/20/2022 04/20/2022 04/20/2022 10:39 AM OPERATIONS ASST documented as of this encounter Care Teams Production Line Welder Relationship Specialty Start Date End Date Cheyenne Choudhury MD PCP - General Family Practice 08/12/16 05/19/20 Fadi Quick MD PCP - General Family Medicine 05/20/20 documented as of this encounter
--- OUTSIDE RECORDS SUMMARY | 2023-07-25 13:12 | XMS_ITS | Referral Summary ---
Author Organization [facility] Address [address] [place] [address] Care Team Providers Care Us Administrative Law Judge Name Role Phone Fadi Quick MD Primary Care Provider [phone] Allergies No known active allergies Medications Medication Sig Dispensed Refills Start Date End Date Status lubiprostone (AMITIZA) 24 MCG capsule Take 24 mcg by mouth 2 times daily (with meals) Active losartan (COZAAR) 50 MG tablet Take 50 mg by mouth daily Active atorvastatin (LIPITOR) 80 MG tablet Take 80 mg by mouth daily Active carvedilol (COREG) 12.5 MG tablet Take 12.5 mg by mouth 2 times daily (with meals) Active clopidogrel (PLAVIX) 75 MG tablet Take 75 mg by mouth daily Active neomycin-polymyxin- hydrocortisone (CORTISPORIN) 3.5-10787-[address] 3 drops into the right ear 4 times daily 10 mL 09/27/2018 Active celecoxib (CELEBREX) 100 MG capsule Take 100 mg by mouth 2 times daily 06/01/2019 Active hydrochlorothiazide (HYDRODIURIL) 25 MG tablet Take 25 mg by mouth daily 08/03/2019 Active metoprolol succinate ER (TOPROL-XL) 50 MG 24 hr tablet 05/29/2019 Active omeprazole (PRILOSEC) [address] capsule Take 40 mg by mouth 2 times daily 06/15/2019 Active rosuvastatin (CRESTOR) 20 MG tablet Take 20 mg by mouth daily 07/26/2019 Active EQ STOOL SOFTENER/LAXATIVE 8.6-50 MG tablet Take 1 tablet by mouth 2 times daily 06/15/2019 Active ASPIRIN LOW DOSE 81 MG EC tablet Take 81 mg by mouth daily 08/14/2019 Active albuterol (PROAIR HFA/PROVENTIL HFA/VENTOLIN HFA) 108 (90 Base) MCG/ACT inhaler Inhale 2 puffs into the lungs every 6 hours as needed for shortness of breath, wheezing or cough 18 g 03/31/2022 Active benzonatate (TESSALON) 100 MG capsule Take 2 capsules (200 mg) by mouth 2 times daily as needed for cough 20 capsule 04/20/2022 Active Active Problems Problem Noted Date Diagnosed Date Abdominal pain 02/13/2018 Immunizations Name Administration Dates Next Due Flu, Unspecified 11/28/2005,12/15/2004, 4 TDAP (Adacel,Boostrix) 11/04/2014 Social History Tobacco Use Types Packs/Day Years Used Date Smoking Tobacco: Every Day Cigarettes Smokeless Tobacco: Never Tobacco Cessation:Ready to Q uit: No; Counseling Given: Yes Alcohol Use Standard Drinks/Week Comments Yes 0 (1 standard drink = 0.6 oz pur e alcohol) Adolescent Education Answer Date Record ed Getting School Help Needed Not on file 11/02 Sex and Gender Information Value Date Recorded Sex Assigned at Not on file Gender Identity Not on file Sexual Orientation Not on file Last Filed Vital Signs Vital Sign Reading Time Taken Comments Blood Pressure 127/88 01/23/2023 11:30 PM PUG MILL OPERATOR HELPER Pulse 69 01/23/2023 11:30 PM PUG MILL OPERATOR HELPER Temperature 36.6 ??C (97.8 ??F) 01/23/2023 9:05 PM CS T Respiratory Rate 16 01/23/2023 9:05 PM PUG MILL OPERATOR HELPER Oxygen Saturation 97% 01/23/2023 11:30 PM PUG MILL OPERATOR HELPER Inhaled Oxygen Concentration - - Weight 83.9 kg (185 lb) 01/23/2023 9:05 PM PUG MILL OPERATOR HELPER Height 157.5 cm (5' 2) 01/23/2023 9:05 PM PUG MILL OPERATOR HELPER Body Mass Index 33.84 01/23/2023 9:05 PM PUG MILL OPERATOR HELPER Plan of Treatment Upcoming Encounters Date Type Department Care Team (Late st Contact Info) Description 05/04/2106 Records - [facility] CONVERSION Provider, Historical Procedures Procedure Name Priority Date/Time Associated Diagnosis Comments COMPREHENSIVE METABOLIC PANEL STAT 01/23/2023 9:22 PM PUG MILL OPERATOR HELPER LIPID PROFILE Routine 06/10/2017 3:35 AM CDT HPV HIGH RISK TYPES DNA CERVICAL Routine 06/18/2014 2:00 PM CDT ABSTRACT PAP (HIM EXTERNAL RESULT) Routine 06/18/2014 from Last 3 Months or Most Recently Relevant to Health Maintenance Results * (ABNORMAL) Comprehensive metabolic panel (01/23/2023 9:22 PM PUG MILL OPERATOR HELPER) Sodium 139 135 - 145 mmol/L 01/23/2023 9:48 PM PUG MILL OPERATOR HELPER [facility] Comment:Reference intervals for this test were updated on 11/06/2022 to more accurately reflect our healthy population. There may be differences in the flagging of prior results with similar values performed with this method. Interpretation of those prior results can be made in the context of the updated reference intervals. Potassium 4.2 3.4 - 5.3 mmol/L 01/23/2023 9:48 PM PUG MILL OPERATOR HELPER [facility] Carbon Dioxide (CO2) 29 22 - 29 mmol/L 01/23/2023 9:48 PM PUG MILL OPERATOR HELPER [facility] Anion Gap 9 7 - 15 mmol/L 01/23/2023 9:48 PM PUG MILL OPERATOR HELPER [facility] Urea Nitrogen 9.6 6.0 - 20.0 mg/dL 01/23/2023 9:48 PM PUG MILL OPERATOR HELPER [facility] Creatinine 1.25(H) 0.51 - 0.95 mg/dL 01/23/2023 9:48 PM PUG MILL OPERATOR HELPER [facility] GFR Estimate 54(L) >60 mL/min/1. 73m2 01/23/2023 9:48 PM PUG MILL OPERATOR HELPER [facility] Calcium 9.9 8.6 - 10.0 mg/dL 01/23/2023 9:48 PM PUG MILL OPERATOR HELPER [facility] Chloride 101 98 - 107 mmol/L 01/23/2023 9:48 PM PUG MILL OPERATOR HELPER [facility] Glucose 120(H) 70 - 99 mg/dL 01/23/2023 9:48 PM PUG MILL OPERATOR HELPER [facility] Alkaline Phosphatase 122 40 - 150 U/L 01/23/2023 9:48 PM PUG MILL OPERATOR HELPER [facility] Comment:Reference intervals for this test were updated on 12/25/2022 to more accurately reflect our healthy population. There may be differences in the flagging of prior results with similar values performed with this method. Interpretation of those prior results can be made in the context of the updated reference intervals. AST 22 0 - 45 U/L 01/23/2023 9:48 PM PUG MILL OPERATOR HELPER [facility] Comment:Reference intervals for this test were updated on 07/23/2022 to more accurately reflect our healthy population. There may be differences in the flagging of prior results with similar values performed with this method. Interpretation of those prior results can be made in the context of the updated reference intervals. ALT 22 0 - 50 U/L 01/23/2023 9:48 PM PUG MILL OPERATOR HELPER [facility] Comment:Reference intervals for this test were updated on 07/23/2022 to more accurately reflect our healthy population. There may be differences in the flagging of prior results with similar values performed with this method. Interpretation of those prior results can be made in the context of the updated reference intervals. Protein Total 7.3 6.4 - 8.3 g/dL 01/23/2023 9:48 PM PUG MILL OPERATOR HELPER [facility] Albumin 4.6 3.5 - 5.2 g/dL 01/23/2023 9:48 PM PUG MILL OPERATOR HELPER [facility] Bilirubin Total 0.4 <=1.2 mg/dL 01/23/2023 9:48 PM PUG MILL OPERATOR HELPER [facility] Blood STRUCTURE OF LEFT UPPER LIMB / Unknown Venipuncture / Unknown 01/23/2023 9:22 PM PUG MILL OPERATOR HELPER 01/23/2023 9:27 PM PUG MILL OPERATOR HELPER Lucila White MD LAB - BLOOD JUANITO DOW [facility] Organization Address City/State/ZIP Co de Phone Number LABORATORY [facility] [address] Lab (1st floor, no room number) [place] [address], [facility] [phone] * (ABNORMAL) Lipid Profile (06/10/2017 3:35 AM CDT) Triglycerides 145 <=149 mg/dL 06/10/2017 4:01 AM CDT [facility] Cholesterol 200(H) <=199 mg/dL 06/10/2017 4:01 AM CDT [facility] LDL Cholesterol Calculated 137(H) <=129 mg/dL 06/10/2017 4:01 AM CDT [facility] Direct Measure HDL 34(L) >=50 mg/dL 06/10/2017 4:01 AM CDT [facility] Blood specimen (specimen) Venipuncture / Unknown 06/10/2017 3:35 AM CDT 06/10/2017 3:40 AM CDT Hussein Jackson MD LAB - BLOOD ORDERABL ES [facility] [address] [place] [address], [facility] [address] [place] [address] * (ABNORMAL) HPV High Risk Types DNA Cervical (06/18/2014 2:00 PM CDT) Interpretation High Risk HPV Type(s) Detected(A) No HPV Type(s) Detected, No High Risk HPV Type(s) Detected, DNA Quantity Not Sufficient 06/25/2014 11:41 AM CDT [facility] Rig Welder Donato Jauregui MD, [facility] 06/25/2014 11:41 AM CDT [facility] Comment: Testing was performed at [facility], [address] [place] [address], [address], with final verification at the indicated laboratory. Specimen of unknown material (specimen) 06/18/2014 2:00 PM CDT 06/23/2014 4:35 AM CDT Narrative [facility] - 06/25/2014 11:41 AM CDT High Risk HPV Type(s) Detected Interpretation: The sample is positive for the presence of DNA from any of the following high risk HPV types (16, 18, 31, 33, 35, 39, 45, 51, 52, 56, 58, 66, and 68). The following HPV type(s) are identified in the submitted sample (16). High risk types are classified by the IARC as carcinogenic, probably, or possible carcinogenic to humans. These results do not exclude the possibility of additional low or high risk HPV types not detected due to adequacy and representativeness of sampling or assay sensitivity. Comments: The presence of high risk HPV types is an established risk factor for the development of cervical dysplasia or neoplasia. Detection of any one of the high risk HPV types aids the assignment of disease risk, and is important for the clinical management of the patient. Methodology: Genomic DNA was extracted from the submitted specimen and amplified by the polymerase chain reaction (PCR) using consensus oligonucleotide primers for the L1 region of the human papillomavirus (HPV) genome. Concurrently, the integrity of the extracted DNA was evaluated by the amplification of beta-globin, a common housekeeping gene. Result interpretation is performed by analysis of peak height and size data generated through fluorescence detection by automated electrophoresis. HPV DNA positive PCR products were subjected to digestion by the restriction endonucleases Hae III, Pst 1, and Rsa 1. Digested DNA fragments were by automated electrophoresis. Digital electropherograms and gel images of data were generated and the specific HPV type was determined by matching the restriction fragment patterns of the respective specimens to that of known HPV restriction fragment patterns. The analytical and performance characteristics of this laboratory-developed test (LDT) were determined by [facility] pursuant to Clinical Laboratory Improvement Amendments (CLIA 88) requirements. It has not been cleared or approved by the U.S. Food and Drug Administration (FDA). The FDA has determined that such clearance or approval is not a requirement prior to use for clinical purposes. Cheyenne Choudhury MD LAB - BLOOD ORDERAB LES Performing Organization Address City/[facility]/ZIP Co de Phone Number [facility] [address] [place] [address], [facility] [address] [place] [address] * (ABNORMAL) ABSTRACT PAP-NO CHARGE (06/18/2014) PAP-ABSTRACT See Scanned Document(A) [facility]) 06/18/2014 Narrative [facility]) - 06/18/2014 PAP SMEAR [facility] Provider Outside LAB - [facility] EXTERNAL R ESULT Performing Organization Address City/[facility]/ZIP Co de Phone Number [facility]) [address] [address], [facility] from Last 3 Months or Most Recently Relevant to Health Maintenance Advance Directives For more information, please contact: [phone] * Full Code (Latest Code Status on File) Date Activated Date Inactivated Comments 02/13/2018 4:23 PM 09/26/2018 11:40 PM Question Answer Comments Code status determined by: Discussion with dk nt/legal decision maker * Full Code Date Activated Date Inactivated Comments 02/13/2018 6:34 AM 02/13/2018 4:23 PM Question Answer Comments Code status determined by: Discussion with dk nt/legal decision maker Care Teams Us Administrative Law Judge Relationship Specialty Start Date End Date Fadi Quick MD PCP - General Family Medicine 05/20/20
--- OUTSIDE RECORDS SUMMARY | 2023-07-25 13:12 | XMS_ITS | Clinical Summary ---
Author Organization [facility] Address [address] [place] [address] Care Team Providers Care Disability Examiner Name Role Phone Fadi Quick MD Primary Care Provider [phone] Allergies No known active allergies Medications Medication [...] by mouth daily Active neomycin-polymyxin- hydrocortisone (CORTISPORIN) 3.5-65156-[address] 3 drops into the [...] Flu, Unspecified 11/28/2005,12/15/2004, 4 TDAP (Adacel,Boostrix) 11/04/2014 Family History Medical History Relation Comments Diabetes Brother Diabetes Father Coronary Artery Disease Mother Diabetes Mother Kidney Disease Mother Relation Status Comments Brother Father Mother Social History Tobacco Use Types Packs/Day Years [...] Comments Blood Pressure 127/88 01/23/2023 11:30 PM PHOTO LAB MANAGER Pulse 69 01/23/2023 11:30 PM PHOTO LAB MANAGER Temperature 36.6 ??C (97.8 ??F) 01/23/2023 9:05 PM CS T Respiratory Rate 16 01/23/2023 9:05 PM PHOTO LAB MANAGER Oxygen Saturation 97% 01/23/2023 11:30 PM PHOTO LAB MANAGER Inhaled Oxygen Concentration - - Weight 83.9 kg (185 lb) 01/23/2023 9:05 PM PHOTO LAB MANAGER Height 157.5 cm (5' 2) 01/23/2023 9:05 PM PHOTO LAB MANAGER Body Mass Index 33.84 01/23/2023 9:05 PM PHOTO LAB MANAGER Plan of Treatment Upcoming Encounters Date Type Department Care Team (Late st Contact Info) Description 05/04/2106 Records - [facility] HE CONVERSION Provider, Historical Health Maintenance Due Date Last Done Comments ANNUAL REVIEW OF HM ORDERS 1977 CT COLONOGRAPHY 1977 FIT 1977 FLEX SIG 1977 MAMMO SCREENING 1977 YEARLY PREVENTIVE VISIT 1977 sDNA (Cologuard) 1977 Pneumococcal Vaccine: Pediatrics (0 to 5 Years) and At-Risk Patients (6 to 64 Years) (1 of 2 - PCV) 1983 COLONOSCOPY 1987 COLORECTAL CANCER SCREENING 1987 HIV SCREENING 02/09/1992 HEPATITIS C SCREENING 1995 HEPATITIS B IMMUNIZATION (1 of 3 - 19+ 3-dose series) 02/09/1996 LIPID 06/10/2018 06/10/2017, 02/11, 05/08/2012, Additional history exists HPV IMMUNIZATION (2 - 3-dose SCDM series) 08/14/2021 07/17/2021 COVID-19 Vaccine ( - season) 2022 04/21/2021, 04/21/2021, 03/21/2021 PHQ-2 (once per calendar year) 2023 ADVANCE CARE PLANNING 02/14/2023 02/14/2018 INFLUENZA VACCINE (Season Ended) 2023 11/28/2005, 11/28/2005, 11/28/2005, Additional history exists DTAP/TDAP/TD IMMUNIZATION (2 - Td or Tdap) 11/04/2024 11/04/2014 GLUCOSE 01/23/2026 01/23/2023, 04/11, 04/07/2022, Additional history exists HPV TEST 04/06/2027 04/06/2022, 06/18/2014 PAP 04/06/2027 04/06/2022, 05/0 09/2014, 06/18/2014 IPV IMMUNIZATION Aged Out No longer e ligible based on patient's age to complete this topic MENINGITIS IMMUNIZATION Aged Out No l onger eligible based on patient's age to complete this topic RSV MONOCLONAL ANTIBODY Aged Out No l onger eligible based on patient's age to complete this topic Procedures Procedure Name Priority Date/Time Associated Diagnosis Comments COMPREHENSIVE METABOLIC PANEL STAT 01/23/2023 9:22 PM PHOTO LAB MANAGER LIPID PROFILE Routine 06/10/2017 3:35 AM CDT HPV HIGH RISK TYPES DNA CERVICAL Routine 06/18/2014 2:00 PM CDT ABSTRACT PAP (HIM EXTERNAL RESULT) Routine 06/18/2014 from Last 3 Months or Most Recently Relevant to Health Maintenance Results * (ABNORMAL) Comprehensive metabolic panel (01/23/2023 9:22 PM PHOTO LAB MANAGER) Sodium 139 135 - 145 mmol/L 01/23/2023 9:48 PM PHOTO LAB MANAGER [facility] Comment:Reference intervals for this test were updated on 11/06/2022 to more accurately reflect our healthy population. There may be differences in the flagging of prior results with similar values performed with this method. Interpretation of those prior results can be made in the context of the updated reference intervals. Potassium 4.2 3.4 - 5.3 mmol/L 01/23/2023 9:48 PM PHOTO LAB MANAGER [facility] Carbon Dioxide (CO2) 29 22 - 29 mmol/L 01/23/2023 9:48 PM PHOTO LAB MANAGER [facility] Anion Gap 9 7 - 15 mmol/L 01/23/2023 9:48 PM PHOTO LAB MANAGER [facility] Urea Nitrogen 9.6 6.0 - 20.0 mg/dL 01/23/2023 9:48 PM PHOTO LAB MANAGER [facility] Creatinine 1.25(H) 0.51 - 0.95 mg/dL 01/23/2023 9:48 PM PHOTO LAB MANAGER [facility] GFR Estimate 54(L) >60 mL/min/1. 73m2 01/23/2023 9:48 PM PHOTO LAB MANAGER [facility] Calcium 9.9 8.6 - 10.0 mg/dL 01/23/2023 9:48 PM PHOTO LAB MANAGER [facility] Chloride 101 98 - 107 mmol/L 01/23/2023 9:48 PM PHOTO LAB MANAGER [facility] Glucose 120(H) 70 - 99 mg/dL 01/23/2023 9:48 PM PHOTO LAB MANAGER [facility] Alkaline Phosphatase 122 40 - 150 U/L 01/23/2023 9:48 PM PHOTO LAB MANAGER [facility] Comment:Reference intervals for this test were updated on 12/25/2022 to more accurately reflect our healthy population. There may be differences in the flagging of prior results with similar values performed with this method. Interpretation of those prior results can be made in the context of the updated reference intervals. AST 22 0 - 45 U/L 01/23/2023 9:48 PM PHOTO LAB MANAGER [facility] Comment:Reference intervals for this test were updated on 07/23/2022 to more accurately reflect our healthy population. There may be differences in the flagging of prior results with similar values performed with this method. Interpretation of those prior results can be made in the context of the updated reference intervals. ALT 22 0 - 50 U/L 01/23/2023 9:48 PM PHOTO LAB MANAGER [facility] Comment:Reference intervals for this test were updated on 07/23/2022 to more accurately reflect our healthy population. There may be differences in the flagging of prior results with similar values performed with this method. Interpretation of those prior results can be made in the context of the updated reference intervals. Protein Total 7.3 6.4 - 8.3 g/dL 01/23/2023 9:48 PM PHOTO LAB MANAGER [facility] Albumin 4.6 3.5 - 5.2 g/dL 01/23/2023 9:48 PM PHOTO LAB MANAGER [facility] Bilirubin Total 0.4 <=1.2 mg/dL 01/23/2023 9:48 PM PHOTO LAB MANAGER LABORATORY Blood STRUCTURE OF LEFT UPPER LIMB / Unknown Venipuncture / Unknown 01/23/2023 9:22 PM PHOTO LAB MANAGER 01/23/2023 9:27 PM PHOTO LAB MANAGER Lucila White MD LAB - BLOOD JUANITO DOW [facility] Organization Address City/State/ZIP Co de Phone Number LABORATORY [facility] [address] [facility]1st floor, no room number) [place] [address] [phone] * (ABNORMAL) Lipid Profile (06/10/2017 3:35 AM CDT) Triglycerides 145 <=149 mg/dL 06/10/2017 4:01 AM CDT [facility] Cholesterol 200(H) <=199 mg/dL 06/10/2017 4:01 AM CDT [facility] LDL Cholesterol Calculated 137(H) <=129 mg/dL 06/10/2017 4:01 AM CDT [facility] Direct Measure HDL 34(L) >=50 mg/dL 06/10/2017 4:01 AM CDT [facility] Blood specimen (specimen) Venipuncture / Unknown 06/10/2017 3:35 AM CDT 06/10/2017 3:40 AM CDT Hussein Jackson MD LAB - BLOOD ORDERABL ES [facility] [address] [place] [address], [facility] [address] [place] [address] * (ABNORMAL) HPV High Risk Types DNA Cervical (06/18/2014 2:00 PM CDT) Interpretation High Risk HPV Type(s) Detected(A) No HPV Type(s) Detected, No High Risk HPV Type(s) Detected, DNA Quantity Not Sufficient 06/25/2014 11:41 AM CDT [facility] Upholstery Tech Donato Jauregui MD, [facility] 06/25/2014 11:41 AM CDT [facility] Comment: Testing was performed at [facility], [address] [place] [address], [facility], with final verification at the indicated laboratory. Specimen of unknown material (specimen) 06/18/2014 2:00 PM CDT 06/23/2014 4:35 AM CDT Narrative [facility] - 06/25/2014 11:41 AM CDT High [...] this laboratory-developed test (LDT) were determined by [facility] pursuant to Clinical Laboratory Improvement Amendments (CLIA 88) requirements. It has not been cleared or approved by the U.S. Food and Drug Administration (FDA). The FDA has determined that such clearance or approval is not a requirement prior to use for clinical purposes. Cheyenne Choudhury MD LAB - BLOOD ORDERAB LES [facility] [address] [place] [address] [address] [place] [address] * (ABNORMAL) ABSTRACT PAP-NO CHARGE (06/18/2014) PAP-ABSTRACT See Scanned Document(A) [facility]) 06/18/2014 Narrative [facility]) - 06/18/2014 PAP SMEAR [facility] Provider Outside LAB - [facility] EXTERNAL R ESULT [facility]) [address] [address], [facility] from Last 3 Months or Most Recently Relevant to Health Maintenance Advance Directives For more information, please contact: [phone] * Full Code (Latest Code Status on File) Date Activated Date Inactivated Comments 02/13/2018 4:23 PM 09/26/2018 11:40 PM Question Answer Comments Code status determined by: Discussion with dk nt/legal decision maker * Full Code Date Activated Date Inactivated Comments 02/13/2018 6:34 AM 02/13/2018 4:23 PM Question Answer Comments Code status determined by: Discussion with dk nt/legal decision maker Care Teams Disability Examiner Relationship Specialty Start Date End Date Fadi Quick MD PCP - General Family Medicine 05/20/20
--- OUTSIDE RECORDS SUMMARY | 2023-07-25 13:13 | XMS_ITS | Encounter Summary ---
Author Organization [facility] Address [address], [place] [address] Care Team Providers Care Crate Tier Name Role Phone Fadi Quick MD Primary Care Provider [phone] Encounter Details Date Type Department Care Team (Late Contact Info) Description 06/09/2017 Flowsheet [facility] [address] [place] [address] Provider, Not On File [address] [place] [address] CONTRAST INJECTION ASSESSMENT Social History Tobacco Use Types Packs/Day Years Used Date Smoking Tobacco: Every Day Cigarettes 1 10 Smokeless Tobacco: Never Comments:10cigs daily Alcohol Use Standard Drinks/Week Comments Yes 0 (1 standard drink = 0.6 oz pur e alcohol) 1-2 times per month Sex and Gender Information Value Date Recorded Sex Assigned at Not on file Gender Identity Not on file Sexual Orientation Not on file documented as of this encounter Plan of Treatment Upcoming Encounters Date Type Department Care Team (Late Contact Info) Description 10/24/2023 1:00 PM CDT [facility]ointment [facility] [address] [place], [place] [id number] Kristin Sands PA-C [address] [facility] [address] [place], [place] [id number] documented as of this encounter Visit Diagnoses Not on filedocumented in this encounter Additional Health Concerns Infection Onset Date Last Indicated Resolved Time R/O COVID19 06/06/2020 06/06/2020 06/06/2020 11:3 3 PM CDT R/O COVID19 06/16/2020 06/16/2020 06/16/2020 11:1 1 PM CDT R/O COVID19 07/12/2020 07/12/2020 07/12/2020 3:13 PM CDT R/O COVID19 07/28/2020 07/28/2020 07/28/2020 8:45 AM CDT documented as of this encounter Care Teams Crate Tier Relationship Specialty Start Date End Date Fadi Quick MD [address] [place] [address] PCP - General Family Practice 06/06/20 documented as of this encounter
--- OUTSIDE RECORDS SUMMARY | 2023-07-25 13:13 | XMS_ITS | Encounter Summary ---
[facility] Organization [facility] Address [address], [place] [address] Care Team Providers Care Drapery And Upholstery Estimator Name Role Phone Fadi Quick MD Primary Care Provider [phone] Encounter Details Date Type Department Care Team (Late Contact Info) Description 04/13/2012 Outside Hospital External to DISCHARGE SUMMARY Social History Tobacco Use Types Packs/Day Years Used Date Smoking Tobacco: Every Day Cigarettes 1 10 Smokeless Tobacco: Never Comments:10cigs daily Alcohol Use Standard Drinks/Week Comments Not Asked 0 (1 standard drink = 0.6 oz pur e alcohol) Sex and Gender Information Value Date Recorded Sex Assigned at Not on file Gender Identity Not on file Sexual Orientation Not on file documented as of this encounter Progress Notes * [facility], PROVIDER - 04/13/2012 12:00 AM CST E FORMER documented in this encounter Plan of Treatment Upcoming Encounters Date Type Department Care Team (Late Contact Info) Description 10/24/2023 1:00 PM CDT [facility]ointment [facility] [address] [place] [address] Kristin Sands, PANirC [address] [facility] [address] [place] [address] documented as of this encounter Visit Diagnoses [...] documented as of this encounter Care Teams Drapery And Upholstery Estimator Relationship Specialty Start Date End Date Fadi Quick MD [address] [place] [address] PCP - General Family Practice 06/06/20 documented as of this encounter
--- OUTSIDE RECORDS SUMMARY | 2023-07-25 13:13 | XMS_ITS ---
Author Organization [facility] Address [address], [place] [address] Care Team Providers Care Real Estate Inspector Name Role Phone Fadi Quick MD Primary Care Provider [phone] Active Problems Problem Noted Date Diagnosed Date Uncontrolled hypertension 11/20/2021 Class 1 obesity due to exces s calories with serious comorbidity and body mass index (BMI) of 32.0 to 32.9 in adult 11/20/2021 History of COVID-19 11/20/2021 Overview: Oct 2021 Hx of cervical cancer 11/20/2021 Overview: 2020 - treated with chemotherapy and radiation PID (acute pelvic inflammatory disease) 08/28/19 21 Elevated troponin 08/27/2020 Malignant neoplasm of exocervix 07/18/2020 Overview: Added automatically from request for surgery [id number] [facility] Review: History: 06/2014: ASCUS, HPV+ 06/2020: Vagina and cervix, biopsy- Invasive squamous cell carcinoma, moderately differentiated. Treatment: chemoradiation and vaginal brachytherapy 03/2021: LSIL, HPV+ Other 03/2022: ASC-H HPV+ Other / no colposcopy 03/2023: LSIL HPV neg Plan, per Kristin Sands PA-C: Continue routine surveillance with test designer onc Abnormal vaginal bleeding 06/17/2020 Acute blood loss anemia 06/17/2020 Squamous cell carcinoma of cervix 06/17/2020 Acute chest pain 06/07/[address] elevation myocardial infarction (S ROXANA) 06/07/2020 Hx of cardiac arrest 06/07/2020 Spontaneous dissection of coronary artery 2020 ST elevation myocardial infa rction involving left anterior descending (LAD) coronary artery 06/03/2020 Status post insertion of dom g-eluting stent into left anterior descending (LAD) artery 06/03/2020 Overview: X 5 05/01/2020 due to SCAD Tobacco abuse 06/03/2020 HTN (hypertension) 06/03/2020 HLD (hyperlipidemia) 06/03/2020 Coronary artery disease invo [place]ving [place] coronary artery of [place] heart without angina pectoris 07/16/2017 Overview: NSTEMI and 06/09/17. ECHO June 2017: EF 54%, hypokinetic basal inferolateral, basal anterolateral, mid inferolateral and mid anterolateral On Plavix until May 2018. 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 Past Plans Medications Plan Name Start Date Discontinue Date Treatment Medications Discontinue Reason Plan Provider HYDRATION THERAPY (FLUIDS) 07/21/2020 06/11/2022 alteplase (CATHFLO ACTIVASE)heparinhe mehdi PF (Pork)magnesium sulfatesodium chloride 0.9 %sodium chloride 0.9% Therapy Complete Benita Sanderson, BUZZLE BUFFER, CDL FLATBED TRUCK DRIVER ONCOLOGY TREATMENT Plan Name Start Date Discontinue Date Treatment Medications Discontinue Reason Plan Provider Cycles CISplatin LOW-DOSE <70 MG/M2 (7D:1) 07/06/1906/11/2022 ALBUterol sulfate HFAalteplase (CATHFLO ACTIVASE)CISplatin IV infusiondexAMETHasone (DECADRON)dexAMETHasone (DECADRON) TabsdexAMETHasone-ondan setron IVPBdiphenhydrAMINE (BENADRYL)EPINEPHrine (EPIPEN)famotidine (PEPCID)fosaprepitant (aka EMEND) IVPBheparinheparin PF (Pork)LORazepam (ATIVAN)methylPREDNISol one sodium succinate PF (SOLU-medrol)OLANZapine (ZyPREXA)ondansetron (ZOFRAN)prochlorperazin e (COMPAZINE)sodium chloride 0.9 %sodium chloride 0.9% Therapy Complete Domitila Bustillos MD 5 of 5 cycles started Radiation Treatments * No radiation treatments are documented for this patient in [facility]. Treatments may have been administered in another system. Resolved Problems Problem Noted Date Diagnosed Date Resolved Date Chest pain 06/09/2017 07/16/2017
--- OUTSIDE RECORDS SUMMARY | 2023-07-25 13:13 | XMS_ITS | Encounter Summary ---
Author Organization [facility] Address [address], [place] [address] Care Team Providers Care Freelance Programmer/App Developer Name Role Phone Fadi Quick MD Primary Care Provider [phone] Encounter Details Date Type Department Care Team (Late Contact Info) Description 09/16/1997 Orders Only [facility] [address] [place] [address] Samia Covington MD Social History Tobacco Use Types Packs/Day Years [...] PM CDT Appointment [facility] [address] [place] [address] Kristin Sands PA-C [address] [facility] 5 [place], [place] [address] documented as of this encounter Visit Diagnoses [...] documented as of this encounter Care Teams Freelance Programmer/App Developer Relationship Specialty Start Date End Date Fadi Quick MD [address] [place] [address] PCP - General Family Practice 06/06/20 documented as of this encounter
--- OUTSIDE RECORDS SUMMARY | 2023-07-25 13:13 | XMS_ITS | Encounter Summary ---
Author Organization [facility] Address [address] [address] Care Team Providers Care It Infrastructure Manager Name Role Phone Fadi Quick MD Primary Care Provider [phone] Encounter Details Date Type Department Care Team (Late Contact Info) Description 04/13/2012 Outside Hospital External to MEDS INSTRUCTIONS Social History Tobacco Use Types Packs/Day Years [...] as of this encounter Progress Notes * [facility], PROVIDER - 04/13/2012 12:00 AM CST documented in this encounter Plan of Treatment Upcoming Encounters Date Type Department Care Team (Late Contact Info) Description 10/24/2023 1:00 PM CDT Appointment [facility] [address] [place] [address] Kristin Sands, PANirC [address] [facility] [address] [place] [address] documented as of this encounter Visit Diagnoses [...] documented as of this encounter Care Teams It Infrastructure Manager Relationship Specialty Start Date End Date Fadi Quick MD [address] [place] [address] PCP - General Family Practice 06/06/20 documented as of this encounter
--- OUTSIDE RECORDS SUMMARY | 2023-07-25 13:13 | XMS_ITS | Clinical Summary ---
Author Organization [facility] Address [address] [place] [address] Care Team Providers Care Lines Tender Name Role Phone Fadi Quick MD Primary Care Provider [phone] Source Comments You are receiving this document as you are listed as the primary care provider,follow-up provider, or the patient has been referred to you for consultation.This is in compliance with the Medicare andProm[facility] Hospitalcaid EHR Incentive Program,which states Providers who transition their patient to another setting of careor provider of care or refers their patient to another provider of care shouldprovide summary care record for each transition of care or referral. [employer] Allergies Active Allergy Reactions Criticality Noted Date Comments Amlodipine Headache 04/25/2023 Medications Medication Sig Dispensed Refills Start Date End Date Status omeprazole (PRILOSEC) 40 MG capsule Take 1 Capsule (40 mg) by mouth every evening. Take 1 hour before a meal. Active aspirin 81 MG chewable tablet Chew and swallow 1 Tablet (81 mg) by mouth daily. Active rosuvastatin (CRESTOR) 20 MG tablet Take 1 Tablet by mouth daily. 90 Tablet 3 06/03/2020 Active spironolactone (ALDACTONE) 25 MG tablet Take 1 Tablet by mouth daily. 90 Tablet 06/09/2020 Active busPIRone (BUSPAR) 7.5 MG tablet Take 2 Tablets (15 mg) by mouth daily at bedtime. Active ondansetron (ZOFRAN-ODT) 4 MG disintegrating tablet Take 1-2 Tablets by mouth every 6 hours as needed for Nausea. 30 Tablet 3 12/26/2020 Active nystatin cream Apply twice daily 30 g 2 04/06/2022 Active carvedilol (COREG) 6.25 MG tabletIndications:Spon taneous dissection of coronary artery (HRC) Take 1 Tablet (6.25 mg) by mouth two times a day with meals. 90 Tablet 3 04/27/2022 Active montelukast (SINGULAIR) 10 MG tablet Take 1 Tablet (10 mg) by mouth daily. Active LORazepam (ATIVAN) 1 MG tablet Take 1 Tablet (1 mg) by mouth three times a day as needed. 02/07/2023 Active rosuvastatin (CRESTOR) 20 MG tablet Take 1 Tablet (20 mg) by mouth. Active spironolactone (ALDACTONE) 25 MG tablet Take 1 Tablet (25 mg) by mouth. Active losartan (COZAAR) 25 MG tabletIndications:Hype rtension, unspecified type (HRC) Take 1 Tablet (25 mg) by mouth daily. 90 Tablet 3 04/25/2023 04/24/2024 Active Active Problems Problem Noted Date Diagnosed [...] Overview: Added automatically from request for surgery [id number] [facility] Review: History: 06/2014: ASCUS, HPV+ 06/2020: Vagina and cervix, biopsy- Invasive squamous cell carcinoma, moderately differentiated. Treatment: chemoradiation and vaginal brachytherapy 03/2021: LSIL, HPV+ Other 03/2022: ASC-H HPV+ Other / no colposcopy 03/2023: LSIL HPV neg Plan, per Kristin Sands PA-C: Continue routine surveillance with parts consultant onc Abnormal vaginal bleeding 06/17/2020 Acute blood [...] (hyperlipidemia) 06/03/2020 Coronary artery disease invo [place]ving [place] coronary artery of [place] heart without angina pectoris 07/16/2017 Overview: NSTEMI and 06/09/17. ECHO June 2017: EF 54%, hypokinetic basal inferolateral, basal anterolateral, mid inferolateral and mid anterolateral On Plavix until May 2018. 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 Oncology Treatment Rooms [address] [place] [address] Domitila Bustillos MD 05/24/2023 Notes/Orders [facility] Oncology Treatment Rooms [address] [place] [address] Domitila Bustillos MD 04/25/2023 3:00 PM CDT Office Visit Marilu Ureña [place] [id number] [place] [id number] Daniel Bravo MD Hypertension, unspecified type (HRC) (Primary Dx) from Last 3 Months Immunizations Name Administration Dates Next Due 9vHPV (Gardasil 9) 07/17/2021 Flu Vac (3+ yrs) 11/28/2005,12/15/2004, 4 Pfizer Monovalent 12+ 04/21/2021 Pfizer Monovalent 12+ Purple Top 03/21/2021 Tdap 11/04/2014 Family History Medical History Relation Name Comments Diabetes, Type II Father Liver Disease Father Cataract Mother Coronary Artery Disease Mother Diabetes Mother Diabetes, Type II Mother Heart Disease Mother Hypertension Mother Asthma Brother Glaucoma Negative Family History Macular Degeneration Negative Family History Relation Name Status Comments Father Mother Brother Daughter 1 Alive Daughter 2 Alive Maternal Grandfather Maternal Grandmother Paternal Grandfather Paternal Grandmother Son Alive Social History Tobacco Use Types Packs/Day Years Used Date Smoking Tobacco: Every Day Cigarettes 0.3 10 Started: 06/01/2010; Last attempted to quit: 06/01/2020 Smokeless Tobacco: Never Tobacco Cessation:Ready to Q uit: Not Asked; Counseling Given: Not Answered Comments:4 cigarettes/day, off/on since age of 17 or 18 Alcohol Use Standard Drinks/Week Comments Yes 0 (1 standard drink = 0.6 oz pur e alcohol) 1-2 times per month Sex and Gender Information Value Date Recorded Sex Assigned at Not on file Gender Identity Not on file Sexual Orientation Not on file Last Filed Vital Signs Vital Sign Reading Time Taken Comments Blood Pressure 134/95 04/25/2023 2:57 PM CDT Pulse 76 04/25/2023 2:57 PM CDT Temperature 37 ??C (98.6 ??F) 11/19/2021 10: 37 PM CDT Respiratory Rate 20 11/20/2021 2:11 PM CDT Oxygen Saturation 93% 11/20/2021 1:30 PM CDT Inhaled Oxygen Concentration - - Weight 81.6 kg (179 lb 12.8 oz) 04/25/2023 2:57 PM CDT Height 157.5 cm (5' 2) 04/25/2023 2:57 PM CDT Body Mass Index 32.89 04/25/2023 2:57 PM CDT Plan of Treatment Upcoming Encounters Date Type Department Care Team (Late st Contact Info) Description 10/24/2023 1:00 PM CDT [facility]ment [facility] [address] [place] [address] Kristin Sands PA-C [address] [facility] [address] [place] [address] Health Maintenance Due Date Last Done Comments Colon Cancer Screening Plan Due 1977 Hep C Screening (Preventive Services) 1977 MTM Targeted 1977 Pneumococcal (1 - PCV) 1983 Adult Preventive Visit 1995 HepB (1) 02/09/1996 Zoster/Shingles (1 of 2) 02/09/1996 COVID-19 Vaccine (3 - Pfizer risk series) 05/19/2021 04/21/2021, 03/21/2021 Influenza (Season Ended) 2023 006, 12/15/2004, 12/31/2003 Cervical Cancer Screening 04/10/20242023, 04/06/2022, 03/28/2021, Additional history exists DTaP/Tdap/Td (2 - Tdap) 11/04/2024 11/04/2014 Diabetes Screening- (based on age and BMI) 06/29/2025 06/29/2022, 06/07/2020 Cholesterol 08/27/2025 08/27/2020, 05/13, 06/04/2017 HIV Screening (Preventive Services) Completed 09/05/2020, 08/26/2020, 12/28/2004, Additional history exists HepA Aged Out No longer eligi ble based on patient's age to complete this topic Hib Aged Out No longer eligi ble based on patient's age to complete this topic IPV (Polio) Aged Out No longer eligi ble based on patient's age to complete this topic MCV4 Aged Out No longer eligi ble based on patient's age to complete this topic Procedures Procedure Name Priority Date/Time Associated Diagnosis Comments PAP TEST Routine 04/11/2023 2:16 PM KIESELGUHR REGENERATOR OPERATOR Squamous cell carcinoma of cervix (HRC) HGB A1C (EXTERNAL RESULT) Routine 06/29/2022 10:05 PM CDT HIV 1/2 AG/AB 4TH GEN Routine 09/05/2020 11:15 AM CDT Screen for STD (sexually transmitted disease) LIPID PANEL & DIRECT LDL (IF NEEDED) Routine 08/27/2020 4:16 AM CDT from Last 3 Months or Most Recently Relevant to Health Maintenance Results * (ABNORMAL) PAP Test (04/11/2023 2:16 PM KIESELGUHR REGENERATOR OPERATOR) Case Report Pap ? Case: [id number] ? Authorizing Provider: ??Kristin Sands PA-C ? Collected: ? 04/11/2023 1416 ? [facility]ing Location: [facility]: ?04/11/2023 1434 ? Oncology ? First Screen: ?Rosamaria Bangura ? Pathologist: ? Williams Rodriguez MD ? Specimen: ?Pap Test, Routine, Cervix/Endocervix ? 05/08/2023 5:04 PM CDT [facility] Pap Specimen Adequacy Satisfactory for evaluation, endocervical/peck sformation zone component absent. 05/08/2023 5:04 PM CDT [facility] Pap Interpretation (LSIL) Low-grade squamous intraepithelial lesion, encompassing HPV/mild dysplasia/UNRULY 1.(A) 05/08/2023 5:04 PM CDT [facility] Pap Disclaimer The Pap test is a screening test to aid in the detection of cervical and vaginal cancers and their precursor lesions. It is not a diagnostic procedure and should not be used as the sole means of detecting malignancy. Both false-positive and false-negative results may occur. 05/08/2023 5:04 PM CDT [facility] Gross Description The specimen is received in SurePath fixative and properly labeled. 1 Pap-stained SurePath slide is prepared. 05/08/2023 5:04 PM CDT [facility] Embedded Images 5:04 PM CDT [facility] Other Specimen Type ENTIRE ENDOCERVIX / Unknown 04/11/2023 2:16 PM KIESELGUHR REGENERATOR OPERATOR 04/11/2023 2:34 PM KIESELGUHR REGENERATOR OPERATOR Comment:LMP: Patient's last menstrual period was 05/25/2020 (lmp unknown). S/p chemo-RT for cervical cancer Kristin Sands PA-C LAB PATHOLOGY Performing Organization Address [facility] de Phone Number [facility] [address] * HIV 1/2 Ag/Ab 4th Generation (09/05/2020 11:15 AM CDT) Pathologist [facility] HIV 1/2 Antigen/Antib elizabeth (4th generation) Negative (Non Reactive) Negative (Non Reactive) 09/05/2020 12:11 PM CDT [facility] Comment:HIV-1 p24 Antigen an d HIV-1/HIV-2 Antibody not detected Blood Venipuncture / Unknown 09/05/2020 11:15 AM CDT 09/05/2020 11:30 AM CDT Benita Sanderson APRN, CNP LAB_1 Performing Organization Address [facility] de Phone Number [facility] [address] * (ABNORMAL) LIPID PANEL AND DIRECT LDL(IF NEEDED) (08/27/2020 4:16 AM CDT) Pathologist [facility] Cholesterol 110 0 - 199 mg/dL 08/27/2020 4:51 AM CDT [facility] Triglyceride 258(H) <=149 mg/dL 08/27/2020 4:51 AM CDT [facility] HDL Cholesterol 27(L) >=40 mg/dL 4:51 AM CDT [facility] LDL, Calculated 31 <130 mg/dL 4:51 AM CDT [facility] Non HDL Chol, Calculated 83 <=159 mg/dL 08/27/2020 4:51 AM CDT [facility] Cholesterol/HDL Ratio 4.1 08/27/2020 4:51 AM CDT [facility] Blood Venipuncture / Unknown 08/27/2020 4:16 AM CDT 08/27/2020 4:29 AM CDT Tk [facility] LAB_1 Performing Organization Address [facility]/ZIP Co de Phone Number [facility] [address] [place] [address], [facility] from Last 3 Months or Most Recently Relevant to Health Maintenance Advance Directives * Full Code (Latest Code Status on File) Date Activated Date Inactivated Comments 11/20/2021 7:41 AM 11/20/2021 4:19 PM Question Answer Comments On Admission, Code status wa s determined by: Not discussed with patient/family * Full Code Date Activated Date Inactivated Comments 08/27/2020 3:25 AM 08/28/2020 4:06 PM Question Answer Comments On Admission, Code status wa s determined by: Not discussed with patient/family * Full Code Date Activated Date Inactivated Comments 07/28/2020 10:25 AM 07/28/2020 6:30 PM * Full Code Date Activated Date Inactivated Comments 06/17/2020 3:26 AM 06/18/2020 5:58 PM Question Answer Comments On Admission, Code status wa s determined by: Not discussed with patient/family * Full Code Date Activated Date Inactivated Comments 06/07/2020 10:21 AM 06/08/2020 8:18 PM Care Teams Lines Tender Relationship Specialty Start Date End Date Fadi Quick MD [address] [place] [address] PCP - General Family Practice 06/06/20
--- OUTSIDE RECORDS SUMMARY | 2023-07-25 13:13 | XMS_ITS | Encounter Summary ---
Author Organization [facility] Address [address] [address] Care Team Providers Care Care Analyst Name Role Phone Fadi Quick MD Primary Care Provider [phone] Encounter Details Date Type Department Care Team (Late Contact Info) Description 09/22/1997 Orders Only [facility] [address] [place] [address] Samia Covington MD Social History Tobacco Use [...] PM CDT [facility]ointment [facility] [address] [place] [address] Kristin Sands PA-C [address] [facility] 5 [place], [place] [address] documented as of this encounter Visit Diagnoses [...] documented as of this encounter Care Teams Care Analyst Relationship Specialty Start Date End Date Fadi Quick MD [address] [place] [address] PCP - General Family Practice 06/06/20 documented as of this encounter
--- OUTSIDE RECORDS SUMMARY | 2023-07-25 13:13 | XMS_ITS | Encounter Summary ---
Author Organization [facility] Address [address] [place] [address] Care Team Providers Care Mine Analyst Name Role Phone Fadi Quick MD Primary Care Provider [phone] Encounter Details Date Type Department Care Team (Late Contact Info) Description 04/11/2012 Emergency Room External to [facility], Provider ACUTE MYOCARDIAL INFARCTIONS OF INFEROLATERAL WALL Social History Tobacco Use Types Packs/Day Years [...] as of this encounter Progress Notes * [facility], Provider - 04/11/2012 12:00 AM CST documented in this encounter Plan of Treatment Upcoming Encounters Date Type Department Care Team (Late Contact Info) Description 10/24/2023 1:00 PM CDT [facility]ointment [facility] [address] [place] [address] Kristin Sands, ELÍASC [address] [facility] 5 [place] [address] documented as of this encounter Visit Diagnoses [...] documented as of this encounter Care Teams Mine Analyst Relationship Specialty Start Date End Date Fadi Quick MD [address] [place] [address] PCP - General Family Practice 06/06/20 documented as of this encounter
--- OUTSIDE RECORDS SUMMARY | 2023-07-25 13:13 | XMS_ITS | Encounter Summary ---
Author Organization [facility] Address [address], [place] [address] Care Team Providers Care Specialty Molder Name Role Phone Fadi Quick MD Primary Care Provider [phone] Encounter Details Date Type Department Care Team (Late Contact Info) Description 05/24/2023 Notes/Orders [facility] Oncology Treatment Rooms [address] [place] [id number] Domitila Bustillos MD [address] [address] Social History Tobacco Use Types Packs/Day Years Used Date Smoking Tobacco: Every Day Cigarettes 0.3 10 Started: 06/01/2010; Last attempted to quit: 06/01/2020 Smokeless Tobacco: Never Comments:4 cigarettes/day, o ff/on since age of 17 or 18 Alcohol [...] Upcoming Encounters Date Type Department Care Team ([facility] Contact Info) Description 10/24/2023 1:00 PM CDT Appointment [facility] [address] [facility] [address] Kristin Sands, PANirC [address] [facility] [address] [place], [place] [address] documented as of this encounter Visit Diagnoses Not on filedocumented in this encounter Care Teams Specialty Molder Relationship Specialty Start Date End Date Fadi Quick MD [address] [place] [address] PCP - General Family Practice 06/06/20 documented as of this encounter
--- OUTSIDE RECORDS SUMMARY | 2023-07-25 13:13 | XMS_ITS | Encounter Summary ---
Author Organization [facility] Address [address] [address] Care Team Providers Care Manager Primary Name Role Phone Fadi Quick MD Primary Care Provider [phone] Encounter Details Date Type Department Care Team (Late Contact Info) Description 08/27/2017 Scanned History [facility] [address] [place], [place] [id number] Provider, Not On File [address] [place] [address] CONTRAST INJECTION ASSESSMENT Social History Tobacco Use Types Packs/Day Years Used Date Smoking Tobacco: Former Cigarettes 1 10 Smokeless Tobacco: Never Comments:10cigs [...] PM CDT Appointment [facility] [address] [place], [place] [id number] Kristin Sands PA-C [address] [facility] [address] [place], [place] [address] documented as of this encounter Visit Diagnoses [...] documented as of this encounter Care Teams Manager Primary Relationship Specialty Start Date End Date Fadi Quick MD [address] [place] [address] PCP - General Family Practice 06/06/20 documented as of this encounter
--- OUTSIDE RECORDS SUMMARY | 2023-07-25 13:13 | XMS_ITS | Encounter Summary ---
Author Organization [facility] Address [address] [address] Care Team Providers Care Pantry Steward/Stewardess Name Role Phone Fadi Quick MD Primary Care Provider [phone] Encounter Details Date Type Department Care Team [...] as of this encounter Progress Notes * [facility], PROVIDER - 04/13/2012 12:00 AM CST ER MACHINE OPERATOR documented in this encounter Plan of Treatment Upcoming Encounters Date Type Department Care Team (Late Contact Info) Description 10/24/2023 1:00 PM CDT Appointment [facility] [address] [place] [address] Kristin Sands, PANirC [address] [facility] [address] [place] [address] documented as of this encounter Visit Diagnoses [...] documented as of this encounter Care Teams Pantry Steward/Stewardess Relationship Specialty Start Date End Date Fadi Quick MD [address] [place] [address] PCP - General Family Practice 06/06/20 documented as of this encounter
--- OUTSIDE RECORDS SUMMARY | 2023-07-25 13:13 | XMS_ITS | Encounter Summary ---
Author Organization [facility] Address [address] [place] [address] Care Team Providers Care Director Emergency Name Role Phone Fadi Quick MD Primary Care Provider [phone] Encounter Details Date Type Department Care Team (Late Contact Info) Description 04/13/2012 Outside Hospital [facility] to [facility] DISCHARGE INSTRUCTIONS Social History Tobacco Use Types Packs/Day [...] as of this encounter Progress Notes * [facility], PROVIDER - 04/13/2012 12:00 AM CST documented in this encounter Plan of Treatment Upcoming Encounters Date Type Department Care Team (Late Contact Info) Description 10/24/2023 1:00 PM CDT Appointment [facility] [address] [place] [address] Kristin Sands, PANirC [address] [facility] [address] [place] [address] documented as of this encounter Visit Diagnoses [...] documented as of this encounter Care Teams Director Emergency Relationship Specialty Start Date End Date Fadi Quick MD [address] [place] [address] PCP - General Family Practice 06/06/20 documented as of this encounter
--- OUTSIDE RECORDS SUMMARY | 2023-07-25 13:13 | XMS_ITS | Encounter Summary ---
Author Organization [facility] Address [address], [place] [address] Care Team Providers Care Flattening Machine Operator Name Role Phone Fadi Quick MD Primary Care Provider [phone] Encounter Details Date Type Department Care Team (Late Contact Info) Description 04/13/2012 Outside Hospital External to [facility] DISCHARGE MEDICATION RECONCILIATION Social History Tobacco Use Types Packs/Day Years [...] as of this encounter Progress Notes * [facility], PROVIDER - 04/13/2012 12:00 AM CST documented in this encounter Plan of Treatment Upcoming Encounters Date Type Department Care Team (Late Contact Info) Description 10/24/2023 1:00 PM CDT Appointment [facility] [address] [place] [address] Kristin Sands PA-C [address] [facility] [address] [place] [address] documented as of this encounter Visit Diagnoses [...] documented as of this encounter Care Teams Flattening Machine Operator Relationship Specialty Start Date End Date Fadi Quick MD [address] [place] [address] PCP - General Family Practice 06/06/20 documented as of this encounter
--- OUTSIDE RECORDS SUMMARY | 2023-07-25 13:13 | XMS_ITS | Encounter Summary ---
Author Organization [facility] Address [address] [address] Care Team Providers Care Custom Bookbinder Name Role Phone Fadi Quick MD Primary Care Provider [phone] Encounter Details Date Type Department Care Team (Late Contact Info) Description 04/11/2012 Outside Hospital External to [facility] HISTORY AND PHYSICAL Social History Tobacco Use Types Packs/Day Years [...] as of this encounter Progress Notes * [facility], PROVIDER - 04/11/2012 12:00 AM CST BRIDGE TENDER documented in this encounter Plan of Treatment Upcoming Encounters Date Type Department Care Team (Late Contact Info) Description 10/24/2023 1:00 PM CDT Appointment [facility] [address] [address] Kristin Sands, PANirC [address] [facility] [address] [place] [address] documented as of this encounter Visit Diagnoses [...] documented as of this encounter Care Teams Custom Bookbinder Relationship Specialty Start Date End Date Fadi Quick MD [address] [place] [address] PCP - General Family Practice 06/06/20 documented as of this encounter
--- OUTSIDE RECORDS SUMMARY | 2023-07-25 13:13 | XMS_ITS | Encounter Summary ---
Author Organization [facility] Address [address] [address] Care Team Providers Care User Experience Manager Name Role Phone Fadi Quick MD Primary Care Provider [phone] Reason for Visit * Reason Comments Follow-up Encounter Details Date Type Department Care Team (Late st Contact Info) Description 04/25/2023 3:00 PM CDT Office Visit [facility] [address] Cardiology [address] [place] [address] Daniel Bravo MD [address] [place], [place] [address] Hypertension, unspecified type (HRC) (Primary Dx) Social History Tobacco Use Types Packs/Day Years [...] on file documented as of this encounter Last Filed Vital Signs Vital Sign Reading Time Taken Comments Blood Pressure 134/95 04/25/2023 2:57 PM CDT Pulse 76 04/25/2023 2:57 PM CDT Temperature - - Respiratory Rate - - Oxygen Saturation - - Inhaled Oxygen Concentration - - Weight 81.6 kg (179 lb 12.8 oz) 04/25/2023 2:57 PM CDT Height 157.5 cm (5' 2) 04/25/2023 2:57 PM CDT Body Mass Index 32.89 04/25/2023 2:57 PM CDT documented in this encounter Patient Instructions * Patient Instructions* Daniel Bravo MD - 04/25/2023 3:00 PM CDT Images from the original note were not included. CARDIOLOGY VISIT INSTRUCTIONS: Based on our visit today, we have made the following plan: New medications / medication changes: 1. Start losartan 25 mg daily Future Diagnostic Tests: 1. Blood work 2-4 weeks, to check electrolytes and renal function. This can be completed at any [facility]. Follow-up 6 months. Remember, we set a quit smoking date for 10/23/2023!! For any questions or concerns that may come up, please kindly call PUJA Hernandez, at [phone]. Thanks again! Chente Bravo M.D. Cardiology Department [facility] documented in this encounter Progress Notes * Daniel Bravo MD - 04/25/2023 3:00 PM CDT CLINIC VISIT RENATA MARK : 1975 CSN: [id number] Date of Service: 04/25/2023 REASON FOR VISIT: Follow-up spontaneous coronary dissection HISTORY OF PRESENT ILLNESS: Renata Mark is a 48 y.o. female who presents for the above. 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 Since our last follow-up 6 months ago, briefly seen in the ER January 23, 2023 with chest pain. Workup unremarkable. Symptoms from the ER were sharp and intermittent. They have resolved. Continues to have some medication compliance issues, but feels she is taking most of them reasonably well at this point. Blood pressure at home 150 over 90s mm Hg. Checks in the morning time before her day gets going. ROS: Otherwise negative. PERTINENT MEDICATIONS: Aspirin 81 mg daily Carvedilol 6.25 mg b.i.d. Losartan 25 mg daily, new today Rosuvastatin 20 mg daily Spironolactone 25 mg daily OBJECTIVE: BP (!) 134/95 (BP Location: Left Arm, BP Cuff Size: Regular) Pulse 76 Ht 5' 2 (157.5 cm) Wt 179 lb 12.8 oz (77689 g) LMP 05/25/2020 (LMP Unknown) BMI 32.89 kg/m?? IMPRESSION: Routine follow-up for 48-year-old female with SCAD. Multiple episodes of spontaneous coronary artery dissection. Current smoker. Hypertension. Medication noncompliance. RECOMMENDATIONS: Medication compliance. Smoking cessation - we set a quit date for 10/23/2023. Start losartan 25 mg daily (unclear why this was stopped). Basic chemistry panel 2-4 weeks. Follow-up 6 months. Follow-up 1-2 years, sooner as needed. Billing based on: complexity and time spent (25 minutes) on this encounter. Chente Bravo MD 04/25/2023 3:21 PM CARDIOLOGY DEPARTMENT documented in this encounter Plan of Treatment Upcoming Encounters Date Type Department Care Team (Late st Contact Info) Description 10/24/2023 1:00 PM CDT [facility]ointment [facility] [address] [place] [address] Kristin Sands PA-C [address] [facility] [address] [place] [address] Scheduled Orders Name Type Priority Associated Diagnoses Orde r Schedule Basic Metabolic Panel Lab Routine Hypertension, unspecified type (HRC) Expected: 04/25/2023, Expires: 07/24/2023 documented as of this encounter Visit Diagnoses Diagnosis Hypertension, unspecified type (HRC)- Primary documented in this encounter Care Teams User Experience Manager Relationship Specialty Start Date End Date Fadi Quick MD [address] [place] [address] PCP - General Family Practice 06/06/20 documented as of this encounter
--- OUTSIDE RECORDS SUMMARY | 2023-07-25 13:13 | XMS_ITS | Encounter Summary ---
Author Organization [facility] Address [address], [place] [address] Care Team Providers Care Strategic Planning Consultant Name Role Phone Fadi Quick MD Primary Care Provider [phone] Encounter Details Date Type Department Care Team (Late Contact Info) Description 05/25/2023 Notes/Orders [facility] Oncology Treatment Rooms [address] [place] [address] Domitila Bustillos MD [address] [address] Social History Tobacco Use Types Packs/Day Years [...] Upcoming Encounters Date Type Department Care Team ([facility] Contact Info) Description 10/24/2023 1:00 PM CDT Appointment [facility] [address] [facility] [place] [address] Kristin Sands, PANirC [address] [facility] [address] [place], [place] [address] documented as of this encounter Visit Diagnoses Not on filedocumented in this encounter Care Teams Strategic Planning Consultant Relationship Specialty Start Date End Date Fadi Quick MD [address] [place] [address] PCP - General Family Practice 06/06/20 documented as of this encounter
--- OUTSIDE RECORDS SUMMARY | 2023-07-25 13:13 | XMS_ITS | Encounter Summary ---
Author Organization [facility] Address [address], [place] [address] Care Team Providers Care Upper Cutter Out Name Role Phone Fadi Quick MD Primary Care Provider Encounter Details Date Type Department Care Team (Late Contact Info) Description 10/30/2016 Flowsheet [facility] [address] [place] [address] Provider, Not On File [address] [place] [address] CONTRAST INJECTION ASSESSMENT Social History Tobacco Use Types Packs/Day Years Used Date Smoking Tobacco: Every Day Cigarettes 1 10 Smokeless Tobacco: Never Comments:10cigs daily Alcohol Use Standard Drinks/Week Comments No 0 [...] PM CDT Appointment [facility] [address] [facility] [place], [place] [address] Kristin Sands PA-C [address] [facility] [address] [place], [place] [address] documented as of this encounter Visit Diagnoses [...] documented as of this encounter Care Teams Upper Cutter Out Relationship Specialty Start Date End Date Fadi Quick MD [address] [place] [address] PCP - General Family Practice 06/06/20 documented as of this encounter
--- OUTSIDE RECORDS SUMMARY | 2023-07-25 13:13 | XMS_ITS | Encounter Summary ---
Author Organization [facility] Address [address] [address] Care Team Providers Care Steam Hand Name Role Phone Fadi Quick MD Primary Care Provider [phone] Encounter Details Date Type Department Care Team (Late Contact Info) Description 04/11/2012 Outside Hospital External to [facility] H AND P Social History Tobacco Use Types Packs/Day Years [...] CDT Appointment [facility] [address] [place], [place] [address] Kristin Sands PA-C [address] [facility] [address] [place], [place] [address] documented as of this encounter Visit Diagnoses [...] documented as of this encounter Care Teams Steam Hand Relationship Specialty Start Date End Date Fadi Quick MD [address] [place] [address] PCP - General Family Practice 06/06/20 documented as of this encounter
== END 2023-07-25 13:10 | disposition home or self-care (01) ==
LOC: LKVREF 13:10
PROVIDERS: PCP Family Medicine; Visit Provider Family Medicine
DX: E03.9 Hypothyroidism, unspecified (principal); I25.10 Atherosclerotic heart disease of native coronary artery without angina pectoris; E66.9 Obesity, unspecified
CPT/HCPCS: 80053; 80061; 84443

== ENCOUNTER 2023-08-19 19:33 | Outpatient (CLI) | payer MEDICAID, SELFPAY ==
--- OUTSIDE RECORDS SUMMARY | 2023-08-20 10:47 | XMS_ITS ---
Author Organization [facility] Address [address] [address] Care Team Providers Care Devil Dog Name Role Phone Fadi Quick MD Primary Care Provider [phone] Active Problems Problem Noted Date Diagnosed Date [...] Overview: Added automatically from request for surgery [id number] [facility] Review: History: 06/2014: ASCUS, HPV+ 06/2020: Vagina and cervix, biopsy- Invasive squamous cell carcinoma, moderately differentiated. Treatment: chemoradiation and vaginal brachytherapy 03/2021: LSIL, HPV+ Other 03/2022: ASC-H HPV+ Other / no colposcopy 03/2023: LSIL HPV neg Plan, per Kristin Sands PA-C: Continue routine surveillance with cracker sprayer onc Abnormal vaginal bleeding 06/17/2020 Acute blood [...] (hyperlipidemia) 06/03/2020 Coronary artery disease invo lving [place] coronary artery of [place] heart without angina pectoris 07/16/2017 Overview: NSTEMI and 06/09/17. ECHO June 2017: EF 54%, hypokinetic basal inferolateral, basal anterolateral, mid inferolateral and mid anterolateral On Plavix until May 2018. 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 Past Plans Medications Plan Name Start Date Discontinue Date Treatment Medications Discontinue Reason Plan Provider HYDRATION THERAPY (FLUIDS) 07/21/2020 06/11/2022 alteplase (CATHFLO ACTIVASE)heparinhe mehdi PF (Pork)magnesium sulfatesodium chloride 0.9 %sodium chloride 0.9% Therapy Complete Benita Sanderson, HOST/HOSTESS HEAD, PIPING DESIGN SPECIALIST ONCOLOGY TREATMENT Plan Name Start Date Discontinue [...] treatments are documented for this patient in [facility]. Treatments may have been administered in another system. Resolved Problems Problem Noted Date Diagnosed Date Resolved Date Chest pain 06/09/2017 07/16/2017
--- OUTSIDE RECORDS SUMMARY | 2023-08-20 10:47 | XMS_ITS | Clinical Summary ---
Author Organization [facility] Address [address] [place] [address] Care Team Providers Care Law Office Manager Name Role Phone Fadi Quick MD Primary Care Provider [phone] Allergies No known active allergies Medications Medication [...] by mouth daily Active neomycin-polymyxin- hydrocortisone (CORTISPORIN) 3.5-14375-[address] 3 drops into the [...] Comments Blood Pressure 127/88 01/23/2023 11:30 PM FEDERAL JAVA DEVELOPER Pulse 69 01/23/2023 11:30 PM FEDERAL JAVA DEVELOPER Temperature 36.6 ??C (97.8 ??F) 01/23/2023 9:05 PM CS T Respiratory Rate 16 01/23/2023 9:05 PM FEDERAL JAVA DEVELOPER Oxygen Saturation 97% 01/23/2023 11:30 PM FEDERAL JAVA DEVELOPER Inhaled Oxygen Concentration - - Weight 83.9 kg (185 lb) 01/23/2023 9:05 PM FEDERAL JAVA DEVELOPER Height 157.5 cm (5' 2) 01/23/2023 9:05 PM FEDERAL JAVA DEVELOPER Body Mass Index 33.84 01/23/2023 9:05 PM FEDERAL JAVA DEVELOPER Plan of Treatment Upcoming Encounters Date Type [...] 3-dose SCDM series) 08/14/2021 07/17/2021 COVID-19 Vaccine (3 - season) 2022 04/21/2021, 04/21/2021, 03/21/2021 PHQ-2 (once per calendar year) 2023 ADVANCE CARE PLANNING 02/14/2023 02/14/2018 INFLUENZA VACCINE (#1) 2023 6, 11/28/2005, 11/28/2005, Additional history exists DTAP/TDAP/TD IMMUNIZATION [...] COMPREHENSIVE METABOLIC PANEL STAT 01/23/2023 9:22 PM FEDERAL JAVA DEVELOPER LIPID PROFILE Routine 06/10/2017 3:35 AM CDT HPV HIGH RISK TYPES DNA CERVICAL Routine 06/18/2014 2:00 PM CDT ABSTRACT PAP (HIM EXTERNAL RESULT) Routine 06/18/2014 from Last 3 Months or Most Recently Relevant to Health Maintenance Results * (ABNORMAL) Comprehensive metabolic panel (01/23/2023 9:22 PM FEDERAL JAVA DEVELOPER) Sodium 139 135 - 145 mmol/L 01/23/2023 9:48 PM FEDERAL JAVA DEVELOPER [facility] Comment:Reference intervals for this test were updated on 11/06/2022 to more accurately reflect our healthy population. There may be differences in the flagging of prior results with similar values performed with this method. Interpretation of those prior results can be made in the context of the updated reference intervals. Potassium 4.2 3.4 - 5.3 mmol/L 01/23/2023 9:48 PM FEDERAL JAVA DEVELOPER [facility] Carbon Dioxide (CO2) 29 22 - 29 mmol/L 01/23/2023 9:48 PM FEDERAL JAVA DEVELOPER [facility] Anion Gap 9 7 - 15 mmol/L 01/23/2023 9:48 PM FEDERAL JAVA DEVELOPER [facility] Urea Nitrogen 9.6 6.0 - 20.0 mg/dL 01/23/2023 9:48 PM FEDERAL JAVA DEVELOPER [facility] Creatinine 1.25(H) 0.51 - 0.95 mg/dL 01/23/2023 9:48 PM FEDERAL JAVA DEVELOPER [facility] GFR Estimate 54(L) >60 mL/min/1. 73m2 01/23/2023 9:48 PM FEDERAL JAVA DEVELOPER [facility] Calcium 9.9 8.6 - 10.0 mg/dL 01/23/2023 9:48 PM FEDERAL JAVA DEVELOPER [facility] Chloride 101 98 - 107 mmol/L 01/23/2023 9:48 PM FEDERAL JAVA DEVELOPER [facility] Glucose 120(H) 70 - 99 mg/dL 01/23/2023 9:48 PM FEDERAL JAVA DEVELOPER [facility] Alkaline Phosphatase 122 40 - 150 U/L 01/23/2023 9:48 PM FEDERAL JAVA DEVELOPER [facility] Comment:Reference intervals for this test were updated on 12/25/2022 to more accurately reflect our healthy population. There may be differences in the flagging of prior results with similar values performed with this method. Interpretation of those prior results can be made in the context of the updated reference intervals. AST 22 0 - 45 U/L 01/23/2023 9:48 PM FEDERAL JAVA DEVELOPER [facility] Comment:Reference intervals for this test were updated on 07/23/2022 to more accurately reflect our healthy population. There may be differences in the flagging of prior results with similar values performed with this method. Interpretation of those prior results can be made in the context of the updated reference intervals. ALT 22 0 - 50 U/L 01/23/2023 9:48 PM FEDERAL JAVA DEVELOPER [facility] Comment:Reference intervals for this test were updated on 07/23/2022 to more accurately reflect our healthy population. There may be differences in the flagging of prior results with similar values performed with this method. Interpretation of those prior results can be made in the context of the updated reference intervals. Protein Total 7.3 6.4 - 8.3 g/dL 01/23/2023 9:48 PM FEDERAL JAVA DEVELOPER [facility] Albumin 4.6 3.5 - 5.2 g/dL 01/23/2023 9:48 PM FEDERAL JAVA DEVELOPER [facility] Bilirubin Total 0.4 <=1.2 mg/dL 01/23/2023 9:48 PM FEDERAL JAVA DEVELOPER [facility] Blood STRUCTURE OF LEFT UPPER LIMB / Unknown Venipuncture / Unknown 01/23/2023 9:22 PM FEDERAL JAVA DEVELOPER 01/23/2023 9:27 PM FEDERAL JAVA DEVELOPER Lucila White MD LAB - BLOOD JUANITO DOW [facility] Organization Address City/State/ZIP Co de Phone Number LABORATORY [facility] [address] [facility] (1st floor, no room number) [place] [address] [phone] * (ABNORMAL) Lipid Profile (06/10/2017 3:35 AM CDT) Triglycerides 145 <=149 mg/dL 06/10/2017 4:01 AM CDT [facility] Cholesterol 200(H) <=199 mg/dL 06/10/2017 4:01 AM CDT [facility] LDL Cholesterol Calculated 137(H) <=129 mg/dL 06/10/2017 4:01 AM CDT [facility] Direct Measure HDL 34(L) >=50 mg/dL 06/10/2017 4:01 AM CDT [facility] Blood specimen (specimen) Venipuncture / Unknown 06/10/2017 3:35 AM CDT 06/10/2017 3:40 AM CDT Hussein Jackson MD LAB - BLOOD ORDERABL ES [facility] [address] [place] [address], [facility] [address] [place] [address] * (ABNORMAL) HPV High Risk Types DNA Cervical (06/18/2014 2:00 PM CDT) Interpretation High Risk HPV Type(s) Detected(A) No HPV Type(s) Detected, No High Risk HPV Type(s) Detected, DNA Quantity Not Sufficient 06/25/2014 11:41 AM CDT [facility] [employer] Safety Professor Donato Jauregui MD, [employer] 06/25/2014 11:41 AM CDT [facility] Comment: Testing was performed at [facility], [address] [place] [address], [facility], with final verification at the indicated laboratory. [...] this laboratory-developed test (LDT) were determined by [facility] pursuant to Clinical Laboratory Improvement Amendments (CLIA 88) requirements. It has not been cleared or approved by the U.S. Food and Drug Administration (FDA). The FDA has determined that such clearance or approval is not a requirement prior to use for clinical purposes. Cheyenne Choudhury MD LAB - BLOOD ORDERAB LES [facility] [address] [place] [address], [facility]ORATORY [address] [place] [address] * (ABNORMAL) ABSTRACT PAP-NO CHARGE (06/18/2014) PAP-ABSTRACT See Scanned Document(A) [facility]) 06/18/2014 Narrative [facility]) - 06/18/2014 PAP SMEAR [facility] Provider Outside LAB - [facility] EXTERNAL R ESULT [facility]) [address] [address], [facility] from Last 3 Months or Most Recently Relevant to Health Maintenance Advance Directives For more information, please contact: [phone] * Full Code (Latest Code Status on File) Date Activated Date Inactivated Comments 02/13/2018 4:23 PM 09/26/2018 11:40 PM Question Answer Comments Code status determined by: Discussion with dk nt/legal decision maker * Full Code Date Activated Date Inactivated Comments 02/13/2018 6:34 AM 02/13/2018 4:23 PM Question Answer Comments Code status determined by: Discussion with dk nt/legal decision maker Care Teams Law Office Manager Relationship Specialty Start Date End Date Fadi Quick MD [facility] [address] [place] [address] PCP - General Family Medicine 05/20/20
--- OUTSIDE RECORDS SUMMARY | 2023-08-20 10:47 | XMS_ITS | Encounter Summary ---
Author Organization [facility] Address [address], [place] [address] Care Team Providers Care Chemical Dependency Therapist Name Role Phone Fadi Quick MD Primary Care Provider [phone] Encounter Details Date Type Department Care Team (Late Contact Info) Description 05/24/2023 Notes/Orders [facility] Oncology Treatment Rooms [address] [place] [address] Domitila Bustillos MD [address] [address] Social History Tobacco Use Types Packs/Day Years [...] Upcoming Encounters Date Type Department Care Team ([facility] Contact Info) Description 10/24/2023 1:00 PM CDT Appointment [facility] Gy[facility] [address] [facility] [place] [address] Kristin Sands, PANirC [address] [facility] [address] [place], [place] [address] documented as of this encounter Visit Diagnoses Not on filedocumented in this encounter Care Teams Chemical Dependency Therapist Relationship Specialty Start Date End Date Fadi Quick MD [address] [place] [address] PCP - General Family Practice 06/06/20 documented as of this encounter
--- OUTSIDE RECORDS SUMMARY | 2023-08-20 10:47 | XMS_ITS | Referral Summary ---
Author Organization [facility] Address [address] [place] [address] Care Team Providers Care Catcher Helper Name Role Phone Fadi Quick MD Primary Care Provider [phone] Allergies No known active allergies Medications Medication [...] by mouth daily Active neomycin-polymyxin- hydrocortisone (CORTISPORIN) 3.5-44437-[address] 3 drops into the [...] Comments Blood Pressure 127/88 01/23/2023 11:30 PM COLLEGE TEACHER Pulse 69 01/23/2023 11:30 PM COLLEGE TEACHER Temperature 36.6 ??C (97.8 ??F) 01/23/2023 9:05 PM CS T Respiratory Rate 16 01/23/2023 9:05 PM COLLEGE TEACHER Oxygen Saturation 97% 01/23/2023 11:30 PM COLLEGE TEACHER Inhaled Oxygen Concentration - - Weight 83.9 kg (185 lb) 01/23/2023 9:05 PM COLLEGE TEACHER Height 157.5 cm (5' 2) 01/23/2023 9:05 PM COLLEGE TEACHER Body Mass Index 33.84 01/23/2023 9:05 PM COLLEGE TEACHER Plan of Treatment Upcoming Encounters Date Type Department Care Team (Late st Contact Info) Description 05/04/2106 Records - [facility] CONVERSION Provider, Historical Procedures Procedure Name Priority Date/Time Associated Diagnosis Comments COMPREHENSIVE METABOLIC PANEL STAT 01/23/2023 9:22 PM COLLEGE TEACHER LIPID PROFILE Routine 06/10/2017 3:35 AM CDT HPV HIGH RISK TYPES DNA CERVICAL Routine 06/18/2014 2:00 PM CDT ABSTRACT PAP (HIM EXTERNAL RESULT) Routine 06/18/2014 from Last 3 Months or Most Recently Relevant to Health Maintenance Results * (ABNORMAL) Comprehensive metabolic panel (01/23/2023 9:22 PM COLLEGE TEACHER) Sodium 139 135 - 145 mmol/L 01/23/2023 9:48 PM COLLEGE TEACHER [facility] Comment:Reference intervals for this test were updated on 11/06/2022 to more accurately reflect our healthy population. There may be differences in the flagging of prior results with similar values performed with this method. Interpretation of those prior results can be made in the context of the updated reference intervals. Potassium 4.2 3.4 - 5.3 mmol/L 01/23/2023 9:48 PM COLLEGE TEACHER [facility] Carbon Dioxide (CO2) 29 22 - 29 mmol/L 01/23/2023 9:48 PM COLLEGE TEACHER [facility] Anion Gap 9 7 - 15 mmol/L 01/23/2023 9:48 PM COLLEGE TEACHER [facility] Urea Nitrogen 9.6 6.0 - 20.0 mg/dL 01/23/2023 9:48 PM COLLEGE TEACHER [facility] Creatinine 1.25(H) 0.51 - 0.95 mg/dL 01/23/2023 9:48 PM COLLEGE TEACHER [facility] GFR Estimate 54(L) >60 mL/min/1. 73m2 01/23/2023 9:48 PM COLLEGE TEACHER [facility] Calcium 9.9 8.6 - 10.0 mg/dL 01/23/2023 9:48 PM COLLEGE TEACHER [facility] Chloride 101 98 - 107 mmol/L 01/23/2023 9:48 PM COLLEGE TEACHER [facility] Glucose 120(H) 70 - 99 mg/dL 01/23/2023 9:48 PM COLLEGE TEACHER [facility] Alkaline Phosphatase 122 40 - 150 U/L 01/23/2023 9:48 PM COLLEGE TEACHER [facility] Comment:Reference intervals for this test were updated on 12/25/2022 to more accurately reflect our healthy population. There may be differences in the flagging of prior results with similar values performed with this method. Interpretation of those prior results can be made in the context of the updated reference intervals. AST 22 0 - 45 U/L 01/23/2023 9:48 PM COLLEGE TEACHER [facility] Comment:Reference intervals for this test were updated on 07/23/2022 to more accurately reflect our healthy population. There may be differences in the flagging of prior results with similar values performed with this method. Interpretation of those prior results can be made in the context of the updated reference intervals. ALT 22 0 - 50 U/L 01/23/2023 9:48 PM COLLEGE TEACHER [facility] Comment:Reference intervals for this test were updated on 07/23/2022 to more accurately reflect our healthy population. There may be differences in the flagging of prior results with similar values performed with this method. Interpretation of those prior results can be made in the context of the updated reference intervals. Protein Total 7.3 6.4 - 8.3 g/dL 01/23/2023 9:48 PM COLLEGE TEACHER [facility] Albumin 4.6 3.5 - 5.2 g/dL 01/23/2023 9:48 PM COLLEGE TEACHER [facility] Bilirubin Total 0.4 <=1.2 mg/dL 01/23/2023 9:48 PM COLLEGE TEACHER [facility] Blood STRUCTURE OF LEFT UPPER LIMB / Unknown Venipuncture / Unknown 01/23/2023 9:22 PM COLLEGE TEACHER 01/23/2023 9:27 PM COLLEGE TEACHER Lucila White MD LAB - BLOOD JUANITO DOW [facility] Organization Address City/State/ZIP Co de Phone Number LABORATORY [facility] [address] Lab (1st floor, no room number) [place] [address], [facility] [phone] * (ABNORMAL) Lipid Profile (06/10/2017 3:35 AM CDT) Triglycerides 145 <=149 mg/dL 06/10/2017 4:01 AM CDT [facility] Cholesterol 200(H) <=199 mg/dL 06/10/2017 4:01 AM CDT [facility] LDL Cholesterol Calculated 137(H) <=129 mg/dL 06/10/2017 4:01 AM CDT [facility] Direct Measure HDL 34(L) >=50 mg/dL 06/10/2017 4:01 AM CDT [facility] Blood specimen (specimen) Venipuncture / Unknown 06/10/2017 3:35 AM CDT 06/10/2017 3:40 AM CDT Hussein Jackson MD LAB - BLOOD ORDERABL ES [facility] [address] [place] [address], [facility] [address] [place] [address] * (ABNORMAL) HPV High Risk Types DNA Cervical (06/18/2014 2:00 PM CDT) Interpretation High Risk HPV Type(s) Detected(A) No HPV Type(s) Detected, No High Risk HPV Type(s) Detected, DNA Quantity Not Sufficient 06/25/2014 11:41 AM CDT [facility] Testing Analyst Donato Jauregui MD, [employer] 06/25/2014 11:41 AM CDT [facility] Comment: Testing was performed at [facility], [address] [place] [address], [id number], with final verification at the indicated laboratory. [...] this laboratory-developed test (LDT) were determined by [email or web address] pursuant to Clinical Laboratory Improvement Amendments (CLIA 88) requirements. It has not been cleared or approved by the U.S. Food and Drug Administration (FDA). The FDA has determined that such clearance or approval is not a requirement prior to use for clinical purposes. Cheyenne Choudhury MD LAB - BLOOD ORDERAB LES Performing Organization Address City/[facility]/ZIP Co de Phone Number [facility] [address] [place] [address], [facility] [address] [place] [address] * (ABNORMAL) ABSTRACT PAP-NO CHARGE (06/18/2014) PAP-ABSTRACT See Scanned Document(A) [facility]) 06/18/2014 Narrative [facility]) - 06/18/2014 PAP SMEAR [facility] Provider Outside LAB - [facility] EXTERNAL R ESULT Performing Organization Address City/[facility]/ZIP Co de Phone Number [facility]) [address] [address], [facility] from Last 3 Months or Most Recently Relevant to Health Maintenance Advance Directives For more information, please contact: [phone] * Full Code (Latest Code Status on File) Date Activated Date Inactivated Comments 02/13/2018 4:23 PM 09/26/2018 11:40 PM Question Answer Comments Code status determined by: Discussion with dk nt/legal decision maker * Full Code Date Activated Date Inactivated Comments 02/13/2018 6:34 AM 02/13/2018 4:23 PM Question Answer Comments Code status determined by: Discussion with dk nt/legal decision maker Care Teams Catcher Helper Relationship Specialty Start Date End Date Fadi Quick MD [facility] [address] [place] [address] PCP - General Family Medicine 05/20/20
--- OUTSIDE RECORDS SUMMARY | 2023-08-20 10:47 | XMS_ITS | Encounter Summary ---
Author Organization [facility] Address [address] [place] [address] Care Team Providers Care Chip Drier Name Role Phone Cheyenne Choudhury MD Primary Care Provider Fadi Quick MD Primary Care Provider [phone] Encounter Details Date Type Department Care Team [...] Department Care Team (Late Contact Info) Description 05/04/2106 Records - [facility] CONVERSION Provider, Historical documented as of this encounter Visit Diagnoses Not on filedocumented in this encounter Additional Health Concerns Infection Onset Date Last Indicated Resolved Time Rule Out COVID-19 03/31/2022 03/31/2022 03/31/2022 8:51 PM [employer] ASS[employer]FT CREWMAN Rule Out COVID-19 04/20/2022 04/20/2022 04/20/2022 10:39 AM [employer] C[employer] CREWMAN documented as of this encounter Care Teams Chip Drier Relationship Specialty Start Date End Date Cheyenne Choudhury MD PCP - General Family Practice 08/12/16 4 Fadi Quick MD [facility] [address] [place] [address] PCP - General Family Medicine 05/20/20 documented as of this encounter
--- OUTSIDE RECORDS SUMMARY | 2023-08-20 10:47 | XMS_ITS | Clinical Summary ---
Author Organization [facility] Address [place], [place] [address] Care Team Providers Care Aircraft Restorer Name Role Phone Fadi Quick MD Primary Care Provider [phone] Allergies No known active allergies Medications Medication [...] Code Status Discussion: Reviewed Preferences Care Teams Aircraft Restorer Relationship Specialty Start Date End Date Fadi Quick MD [address] [place] [address] PCP - General Family Practice 04/07/20
--- OUTSIDE RECORDS SUMMARY | 2023-08-20 10:47 | XMS_ITS | Encounter Summary ---
Author Organization [facility] Address [address], [place] [address] Care Team Providers Care Change House Attendant Name Role Phone Fadi Quick MD Primary Care Provider [phone] Encounter Details Date Type Department Care Team (Late Contact Info) Description 05/25/2023 Notes/Orders [facility] Oncology Treatment Rooms [address] [place] [address] Domitila Bustillos MD [address] [address] Social History Tobacco Use Types Packs/Day Years [...] Upcoming Encounters Date Type Department Care Team ([facility] Contact Info) Description 10/24/2023 1:00 PM CDT Appointment [facility] Gy[facility]cology [address] [facility] [place] [address] Kristin Sands, PANirC [address] [facility] [address] [place], [place] [address] documented as of this encounter Visit Diagnoses Not on filedocumented in this encounter Care Teams Change House Attendant Relationship Specialty Start Date End Date Fadi Quick MD [address] [place] [address] PCP - General Family Practice 06/06/20 documented as of this encounter
--- OUTSIDE RECORDS SUMMARY | 2023-08-20 10:47 | XMS_ITS | Clinical Summary ---
Author Organization [facility] Address [address] [place] [address] Care Team Providers Care Linux Administrator Name Role Phone Fadi Quick MD Primary Care Provider [phone] Source Comments You are receiving this document as you are listed as the primary care provider,follow-up provider, or the patient has been referred to you for consultation.This is in compliance with the Medicare andWay[facility] Hospitalcaid EHR Incentive Program,which states Providers who transition their patient to another setting of careor provider of care or refers their patient to another provider of care shouldprovide summary care record for each transition of care or referral. [employer] Allergies Active Allergy Reactions Criticality Noted Date [...] Overview: Added automatically from request for surgery [id number] [facility] Review: History: 06/2014: ASCUS, HPV+ 06/2020: Vagina and cervix, biopsy- Invasive squamous cell carcinoma, moderately differentiated. Treatment: chemoradiation and vaginal brachytherapy 03/2021: LSIL, HPV+ Other 03/2022: ASC-H HPV+ Other / no colposcopy 03/2023: LSIL HPV neg Plan, per Kristin Sadns PA-C: Continue routine surveillance with sustainability coach onc Abnormal vaginal bleeding 06/17/2020 Acute blood [...] (hyperlipidemia) 06/03/2020 Coronary artery disease invo lving [place] coronary artery of [place] heart without angina pectoris 07/16/2017 Overview: NSTEMI and 06/09/17. ECHO June 2017: EF 54%, hypokinetic basal inferolateral, basal anterolateral, mid inferolateral and mid anterolateral On Plavix until May 2018. 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 07/16/2017 Other insomnia 07/16/2017 H/O non-ST elevation myocardial infarction (NSTE CT) 07/16/2017 HTN (hypertension) HLD (hyperlipidemia) Tobacco abuse Resolved Problems Problem Noted Date Diagnosed Date Resolved Date Chest pain 06/09/2017 07/16/2017 Encounters Date Type Department Care Team Description 05/25/2023 Notes/Orders [facility] Oncology Treatment Rooms [address] [place] [address] Domitila Bustillos MD 05/24/2023 Notes/Orders [facility] Oncology Treatment Rooms [address] [place] [address] Domitila Bustillos MD from Last 3 Months Immunizations Name Administration [...] PM CDT Appointment [facility] Gy[facility] [address] [place] [address]. [place] [address] Kristin Sands, [place] [address] [facility] [address] [place], [place] [id number] Health Maintenance Due Date Last Done Comments Colon Cancer Screening Plan Due 1977 Hep C Screening (Preventive Services) 1977 MTM Targeted 1977 Mammogram 1977 Pneumococcal (1 - PCV) 1983 Adult Preventive Visit 1995 HepB (1) 02/09/1996 Zoster/Shingles (1 of 2) 02/09/1996 COVID-19 Vaccine (3 - Pfizer risk series) 05/19/2021 04/21/2021, 03/21/2021 Influenza (#1) 2023 11/28/2005, 05/2004, 12/31/2003 Cervical Cancer Screening 04/10/20242023, 04/06/2022, 03/28/2021, [...] Comments PAP TEST Routine 04/11/2023 2:16 PM CELL CLEANER Squamous cell carcinoma of cervix (HRC) HGB A1C (EXTERNAL RESULT) Routine 06/29/2022 10:05 PM CDT HIV 1/2 AG/AB 4TH GEN Routine 09/05/2020 11:15 AM CDT Screen for STD (sexually transmitted disease) LIPID PANEL & DIRECT LDL (IF NEEDED) Routine 08/27/2020 4:16 AM CDT from Last 3 Months or Most Recently Relevant to Health Maintenance Results * (ABNORMAL) PAP Test (04/11/2023 2:16 PM CELL CLEANER) Case Report Pap ? Case: [id number] ? Authorizing Provider: ??Kristin Sands PA-C ? Collected: ? 04/11/2023 1416 ? Ordering Location: ? [facility] Gy[facility]ologic Received: ?04/11/2023 1434 ? Oncology ? First Screen: ?Rosamaria Bangura ? Pathologist: ? Williams Rodriguez MD ? Specimen: ?Pap Test, Routine, Cervix/Endocervix ? 05/08/2023 5:04 PM CDT [facility] Pap Specimen Adequacy Satisfactory for evaluation, endocervical/peck sformation zone component absent. 05/08/2023 5:04 PM CDT [facility] Pap Interpretation (LSIL) Low-grade squamous intraepithelial lesion, encompassing HPV/mild dysplasia/UNRULY 1.(A) 05/08/2023 5:04 PM CDT [facility] Pap Disclaimer The Pap test is a screening test to aid in the detection of cervical and vaginal cancers and their precursor lesions. It is not a diagnostic procedure and should not be used as the sole means of detecting malignancy. Both false-positive and false-negative results may occur. 05/08/2023 5:04 PM CDT [facility] Gross Description The specimen is received in SurePath fixative and properly labeled. 1 Pap-stained SurePath slide is prepared. 05/08/2023 5:04 PM CDT [facility] Embedded Images 5:04 PM CDT [facility] Other Specimen Type ENTIRE ENDOCERVIX / Unknown 04/11/2023 2:16 PM CELL CLEANER 04/11/2023 2:34 PM CELL CLEANER Comment:LMP: Patient's last menstrual period was 05/25/2020 (lmp unknown). S/p chemo-RT for cervical cancer Kristin Sands PA-C LAB PATHOLOGY [facility] [address] [place] [address], [facility] * HIV 1/2 Ag/Ab 4th Generation (09/05/2020 11:15 AM CDT) Pathologist [facility] HIV 1/2 Antigen/Antib elizabeth (4th generation) Negative (Non Reactive) Negative (Non Reactive) 09/05/2020 12:11 PM CDT [facility] Comment:HIV-1 p24 Antigen an d HIV-1/HIV-2 Antibody not detected Blood Venipuncture / Unknown 09/05/2020 11:15 AM CDT 09/05/2020 11:30 AM CDT Benita Sanderson APRN, CNP LAB_1 Performing Organization Address City/[facility] Co de Phone Number [facility] [employer] [address] * (ABNORMAL) LIPID PANEL AND DIRECT LDL(IF NEEDED) (08/27/2020 4:16 AM CDT) [facility] Cholesterol 110 0 - 199 mg/dL 08/27/2020 4:51 AM CDT [facility] Triglyceride 258(H) <=149 mg/dL 08/27/2020 4:51 AM CDT [facility] HDL Cholesterol 27(L) >=40 mg/dL 4:51 AM CDT [facility] LDL, Calculated 31 <130 mg/dL 4:51 AM CDT [facility] Non HDL Chol, Calculated 83 <=159 mg/dL 08/27/2020 4:51 AM CDT [facility] Cholesterol/HDL Ratio 4.1 08/27/2020 4:51 AM CDT [facility] Blood Venipuncture / Unknown 08/27/2020 4:16 AM CDT 08/27/2020 4:29 AM CDT [facility] LAB_1 Performing Organization Address City/[facility]/ZIP Co de Phone Number [facility] [address] [employer] [address] from Last 3 Months or Most Recently [...] 10:21 AM 06/08/2020 8:18 PM Care Teams Linux Administrator Relationship Specialty Start Date End Date Fadi Quick MD [address] [place] [address] PCP - General Family Practice 06/06/20
--- OUTSIDE RECORDS SUMMARY | 2023-08-20 10:48 | XMS_ITS | Encounter Summary ---
[facility] Organization [facility] Address [address], [place] [address] Care Team Providers Care Welding Machine Operator Name Role Phone Fadi Quick MD Primary Care Provider [phone] Encounter Details Date Type Department Care Team [...] as of this encounter Progress Notes * [facility], PROVIDER - 04/13/2012 12:00 AM CST documented in this encounter Plan of Treatment Upcoming Encounters Date Type Department Care Team (Late Contact Info) Description 10/24/2023 1:00 PM CDT [facility]ointment [facility] [address] [place] [address] Kristin Sands, PANirC [address] [facility] [address] [place] [address] documented as of this encounter Visit Diagnoses [...] documented as of this encounter Care Teams Welding Machine Operator Relationship Specialty Start Date End Date Fadi Quick MD [address] [place] [address] PCP - General Family Practice 06/06/20 documented as of this encounter
--- OUTSIDE RECORDS SUMMARY | 2023-08-20 10:48 | XMS_ITS | Encounter Summary ---
Author Organization [facility] Address [address] [place] [address] Care Team Providers Care Administrative Executive Name Role Phone Fadi Quick MD Primary Care Provider [phone] Encounter Details Date Type Department Care Team [...] as of this encounter Progress Notes * [facility], PROVIDER - 04/13/2012 12:00 AM CST documented in this encounter Plan of Treatment Upcoming Encounters Date Type Department Care Team (Late Contact Info) Description 10/24/2023 1:00 PM CDT Appointment [facility] [address] [place] [address] Kristin Sands, PANirC [address] [facility] [address] [place] [address] documented as of this encounter Visit Diagnoses [...] documented as of this encounter Care Teams Administrative Executive Relationship Specialty Start Date End Date Fadi Quick MD [address] [place] [address] PCP - General Family Practice 06/06/20 documented as of this encounter
--- OUTSIDE RECORDS SUMMARY | 2023-08-20 10:48 | XMS_ITS | Encounter Summary ---
Author Organization [facility] Address [address], [place] [address] Care Team Providers Care Warp Clamper Name Role Phone Fadi Quick MD Primary Care Provider [phone] Encounter Details Date Type Department Care Team [...] Notes * [facility], PROVIDER - 04/13/2012 12:00 AM CST FACTURING SOFTWARE ENGINEER documented in this encounter Plan of Treatment Upcoming Encounters Date Type Department Care Team (Late Contact Info) Description 10/24/2023 1:00 PM CDT Appointment [facility] [address] [place] [address] Kristin Sands, PANirC [address] [facility] [address] [place] [address] documented as of this encounter Visit Diagnoses [...] documented as of this encounter Care Teams Warp Clamper Relationship Specialty Start Date End Date Fadi Quick MD [address] [place] [address] PCP - General Family Practice 06/06/20 documented as of this encounter
--- OUTSIDE RECORDS SUMMARY | 2023-08-20 10:48 | XMS_ITS | Encounter Summary ---
Author Organization [facility] Address [address], [place] [address] Care Team Providers Care Coder Name Role Phone Fadi Quick MD Primary Care Provider [phone] Encounter Details Date Type Department Care Team (Late Contact Info) Description 08/27/2017 Scanned History [facility] [address] [place], [place] [id number] Provider, Not On File [address] [place] [address] CONTRAST INJECTION ASSESSMENT Social History Tobacco Use [...] PM CDT Appointment [facility] [address] [place], [place] [id number] Kristin Sands PA-C [address] [facility] [address] [place], [place] [address] documented as of this encounter Visit Diagnoses [...] documented as of this encounter Care Teams Coder Relationship Specialty Start Date End Date Fadi Quick MD [address] [place] [address] PCP - General Family Practice 06/06/20 documented as of this encounter
--- OUTSIDE RECORDS SUMMARY | 2023-08-20 10:48 | XMS_ITS | Encounter Summary ---
Author Organization [facility] Address [address], [place] [address] Care Team Providers Care Aircraft Avionics Technician Name Role Phone Fadi Quick MD Primary Care Provider [phone] Encounter Details Date Type Department Care Team [...] CDT Appointment [facility] [address] [place], [place] [address] Kristin Sands PA-C [address] [facility] [address] [place], [place] [address] documented as of this encounter Visit Diagnoses [...] documented as of this encounter Care Teams Aircraft Avionics Technician Relationship Specialty Start Date End Date Fadi Quick MD [address] [place] [address] PCP - General Family Practice 06/06/20 documented as of this encounter
--- OUTSIDE RECORDS SUMMARY | 2023-08-20 10:48 | XMS_ITS | Encounter Summary ---
Author Organization [facility] Address [address] [address] Care Team Providers Care Endband Sizer Name Role Phone Fadi Quick MD Primary Care Provider [phone] Encounter Details Date Type Department Care Team (Late Contact Info) Description 09/16/1997 Orders Only [facility] [address] [place] [address] Samia Covington MD Social History Tobacco Use [...] PM CDT [facility]ment [facility] [address] [place] [address] Kristin Sands PA-C [address] [facility] 5 [place], [place] [address] documented as of this encounter Visit Diagnoses [...] documented as of this encounter Care Teams Endband Sizer Relationship Specialty Start Date End Date Fadi Quick MD [address] [place] [address] PCP - General Family Practice 06/06/20 documented as of this encounter
--- OUTSIDE RECORDS SUMMARY | 2023-08-20 10:48 | XMS_ITS | Encounter Summary ---
Author Organization [facility] Address [address] [place] [address] Care Team Providers Care Barrel Stave Inspector Name Role Phone Fadi Quick MD Primary Care Provider [phone] Encounter Details Date Type Department Care Team [...] as of this encounter Progress Notes * [facility], PROVIDER - 04/13/2012 12:00 AM CST documented in this encounter Plan of Treatment Upcoming Encounters Date Type Department Care Team (Late Contact Info) Description 10/24/2023 1:00 PM CDT Appointment [facility] [address] [place] [address] Kristin Sands PA-C [address] [facility] [address] [place] [address] documented as of this encounter Visit Diagnoses [...] documented as of this encounter Care Teams Barrel Stave Inspector Relationship Specialty Start Date End Date Fadi Quick MD [address] [place] [address] PCP - General Family Practice 06/06/20 documented as of this encounter
--- OUTSIDE RECORDS SUMMARY | 2023-08-20 10:48 | XMS_ITS | Encounter Summary ---
Author Organization [facility] Address [address] [place] [address] Care Team Providers Care Medical Cash Poster Name Role Phone Fadi Quick MD Primary Care Provider [phone] Encounter Details Date Type Department Care Team [...] as of this encounter Progress Notes * [facility], PROVIDER - 04/13/2012 12:00 [address] CST TER CUP POWDER MIXER documented in this encounter Plan of Treatment Upcoming Encounters Date Type Department Care Team (Late Contact Info) Description 10/24/2023 1:00 PM CDT Appointment [facility] [address] [place] [address] Kristin Sands, PANirC [address] [facility] [address] [place] [address] documented as of this encounter Visit Diagnoses [...] documented as of this encounter Care Teams Medical Cash Poster Relationship Specialty Start Date End Date Fadi Quick MD [address] [place] [address] PCP - General Family Practice 06/06/20 documented as of this encounter
--- OUTSIDE RECORDS SUMMARY | 2023-08-20 10:48 | XMS_ITS | Encounter Summary ---
Author Organization [facility] Address [address], [place] [address] Care Team Providers Care Surface Room Shop Optician Name Role Phone Fadi Quick MD Primary Care Provider [phone] Encounter Details Date Type Department Care Team (Late Contact Info) Description 06/09/2017 Flowsheet [facility] [address] [place] [address] Provider, Not On File [address] [place] [address] CONTRAST INJECTION ASSESSMENT Social History Tobacco Use [...] PM CDT Appointment [facility] [address] [place], [place] [address] Kristin Sands PA-C [address] [facility] [address] [place], [place] [address] documented as of this encounter Visit Diagnoses [...] documented as of this encounter Care Teams Surface Room Shop Optician Relationship Specialty Start Date End Date Fadi Quick MD [address] [place] [address] PCP - General Family Practice 06/06/20 documented as of this encounter
--- OUTSIDE RECORDS SUMMARY | 2023-08-20 10:48 | XMS_ITS | Encounter Summary ---
Author Organization [facility] Address [address] [address] Care Team Providers Care Masonry Inspector Name Role Phone Fadi Quick MD Primary Care Provider [phone] Encounter Details Date Type Department Care Team (Late Contact Info) Description 09/22/1997 Orders Only [facility] [address] [place] [address] Samia Covington MD Social History Tobacco Use [...] PM CDT Appointment [facility] [address] [place] [address] Kristin Sands PA-C [address] [facility] 5 [place], [place] [address] documented as of this encounter Visit Diagnoses [...] documented as of this encounter Care Teams Masonry Inspector Relationship Specialty Start Date End Date Fadi Quick MD [address] [place] [address] PCP - General Family Practice 06/06/20 documented as of this encounter
--- OUTSIDE RECORDS SUMMARY | 2023-08-20 10:48 | XMS_ITS | Encounter Summary ---
Author Organization [facility] Address [address] [place] [address] Care Team Providers Care Library Specialist Name Role Phone Fadi Quick MD Primary Care Provider [phone] Encounter Details Date Type Department Care Team (Late Contact Info) Description 04/11/2012 Emergency Room External to [facility], Provider ACUTE MYOCARDIAL INFARCTIONS OF INFEROLATERAL WALL [...] as of this encounter Progress Notes * [facility], Provider - 04/11/2012 12:00 AM CST documented in this encounter Plan of Treatment Upcoming Encounters Date Type Department Care Team (Late Contact Info) Description 10/24/2023 1:00 PM CDT Appointment [facility] [address] [place] [address] Kristin Sands, ELÍASC [address] [facility] 5 [place] [address] documented as of this encounter Visit Diagnoses [...] documented as of this encounter Care Teams Library Specialist Relationship Specialty Start Date End Date Fadi Quick MD [address] [place] [address] PCP - General Family Practice 06/06/20 documented as of this encounter
--- OUTSIDE RECORDS SUMMARY | 2023-08-20 10:48 | XMS_ITS | Encounter Summary ---
Author Organization [facility] Address [address] [place] [address] Care Team Providers Care Control Area Operator Name Role Phone Fadi Quick MD Primary Care Provider [phone] Encounter Details Date Type Department Care Team (Late Contact Info) Description 10/30/2016 Flowsheet [facility] [address] [place] [address] Provider, Not On File [address] [place] [address] CONTRAST INJECTION ASSESSMENT Social History Tobacco Use [...] PM CDT Appointment [facility] [address] [facility] [place], [place] [address] Kristin Sands PA-C [address] [facility] [address] [place], [place] [address] documented as of this encounter Visit Diagnoses [...] documented as of this encounter Care Teams Control Area Operator Relationship Specialty Start Date End Date Fadi Quick MD [address] [place] [address] PCP - General Family Practice 06/06/20 documented as of this encounter
--- OUTSIDE RECORDS SUMMARY | 2023-08-20 10:48 | XMS_ITS | Encounter Summary ---
Author Organization [facility] Address [address] [address] Care Team Providers Care Millinery Worker Name Role Phone Fadi Quick MD Primary Care Provider [phone] Encounter Details Date Type Department Care Team [...] as of this encounter Progress Notes * [facility], PROVIDER - 04/11/2012 12:00 AM CST US REP documented in this encounter Plan of Treatment Upcoming Encounters Date Type Department Care Team (Late Contact Info) Description 10/24/2023 1:00 PM CDT Appointment [facility] [address] [place] [address] Kristin Sands, PANirC [address] [facility] [address] [place] [address] documented as of this encounter Visit Diagnoses [...] documented as of this encounter Care Teams Millinery Worker Relationship Specialty Start Date End Date Fadi Quick MD [address] [place] [address] PCP - General Family Practice 06/06/20 documented as of this encounter
== END 2023-08-19 19:34 | disposition home or self-care (01) ==
LOC: NFLDREF 08-20 10:45
PROVIDERS: PCP Family Medicine; Referring Provider Family Medicine; Visit Provider Family Medicine
DX: E11.9 Type 2 diabetes mellitus without complications (principal)
CPT/HCPCS: 82043; 82570

== ENCOUNTER 2024-01-02 10:07 | Outpatient (CLI) | payer MEDICAID, SELFPAY ==
--- OUTSIDE RECORDS SUMMARY | 2024-01-02 10:10 | XMS_ITS ---
[facility] Address [address], [place] [address] Care Team Providers Care Delivery Specialist Name Role Phone Fadi Quick MD Primary Care Provider Active Problems Problem Noted Date Diagnosed Date Uncontrolled hypertension 11/20/2021 Class 1 obesity due to exces s calories with serious comorbidity and body mass index (BMI) of 32.0 to 32.9 in adult 11/20/2021 History of COVID-19 11/20/2021 Overview (11/20/2021): Oct 2021 Hx of cervical cancer 11/20/2021 Overview (11/20/2021): 2020 - treated with chemotherapy and radiation PID (acute pelvic inflammatory disease) 08/28/19 21 Elevated troponin 08/27/2020 Malignant neoplasm of exocervix 07/18/2020 Overview (05/10/2023): Added automatically from request for surgery [id number] [facility] Review: History: 06/2014: ASCUS, HPV+ 06/2020: Vagina and cervix, biopsy- Invasive squamous cell carcinoma, moderately differentiated. Treatment: chemoradiation and vaginal brachytherapy 03/2021: LSIL, HPV+ Other 03/2022: ASC-H HPV+ Other / no colposcopy 03/2023: LSIL HPV neg Plan, per Kristin Sands PA-C: Continue routine surveillance with metal fabricator welder onc Abnormal vaginal bleeding 06/17/2020 Acute blood [...] into left anterior descending (LAD) artery 06/03/2020 Overview (06/03/2020): X 5 05/01/2020 due to SCAD Tobacco abuse 06/03/2020 HTN (hypertension) 06/03/2020 HLD (hyperlipidemia) 06/03/2020 Coronary artery disease invo lving [place] coronary artery of [place] heart without angina pectoris 07/16/2017 Overview (07/16/2017): NSTEMI and 06/09/17. ECHO June 2017: EF [...] %sodium chloride 0.9% Therapy Complete Benita Sanderson, SLITTER AND REWINDER MACHINE OPERATOR, CAR HOPPER ONCOLOGY TREATMENT Plan Name Start Date Discontinue Date Treatment Medications Discontinue Reason Plan Provider Cycles CISplatin LOW-DOSE <70 MG/M2 (7D:1) 07/06/1906/11/2022 ALBUterol sulfate HFAalteplase (CATHFLO ACTIVASE)CISplatin IV infusiondexAMETHasone (DECADRON)dexAMETHasone (DECADRON) TabsdexAMETHasone-ondan setron IVPBdiphenhydrAMINE (BENADRYL)EPINEPHrine (EPIPEN)famotidine (PEPCID)fosaprepitant (EMEND) 150 mg 250 mL IVPB ADSheparinheparin PF (Pork)LORazepam (ATIVAN)methylPREDNISol one sodium succinate PF (SOLU-medrol)OLANZapine (ZyPREXA)ondansetron (ZOFRAN)prochlorperazin e (COMPAZINE)sodium chloride 0.9 %sodium chloride 0.9% Therapy Complete Domitila Bustillos MD 5 of 5 cycles started Radiation Treatments * No radiation treatments are documented for this patient in [facility]. Treatments may have been administered in another system. Resolved Problems Problem Noted Date Diagnosed Date Resolved Date Chest pain 06/09/2017 07/16/2017
--- OUTSIDE RECORDS SUMMARY | 2024-01-02 10:10 | XMS_ITS | Referral Summary ---
Author Organization [facility] Address [address] [place] [address] Care Team Providers Care Artisan Plasterer Name Role Phone Fadi Quick MD Primary Care Provider [phone] Allergies No known active allergies Medications lubiprostone (AMITIZA) 24 MCG capsule Take 24 [...] Take 75 mg by mouth daily Active neomycin-polymy abimbola-hydrocortis one (CORTISPORIN) 3.5-63209-[address] 3 drops into the right ear 4 times daily 10 mL 9 Active celecoxib (CELEBREX) 100 MG capsule Take 100 mg by mouth 2 times daily 0 Active hydrochlorothia zide (HYDRODIURIL) 25 MG tablet Take 25 mg by mouth daily 0 Active metoprolol succinate ER (TOPROL-XL) 50 MG 24 hr tablet 0 Active omeprazole (PRILOSEC) [address] capsule Take 40 mg by mouth 2 times daily 0 Active rosuvastatin (CRESTOR) 20 MG tablet Take 20 mg by mouth daily 0 Active EQ STOOL SOFTENER/LAXATI VE 8.6-50 MG tablet Take 1 tablet by mouth 2 times daily 0 Active ASPIRIN LOW DOSE 81 MG EC tablet Take 81 mg by mouth daily 0 Active albuterol (PROAIR HFA/PROVENTIL HFA/VENTOLIN HFA) 108 (90 Base) MCG/ACT inhaler Inhale 2 puffs into the lungs every 6 hours as needed for shortness of breath, wheezing or cough 18 g 3 Active benzonatate (TESSALON) 100 MG capsule Take 2 capsules (200 mg) by mouth 2 times daily as needed for cough 20 capsule 3 Active Active Problems Problem Noted Date Diagnosed [...] School Help Needed Not on file 11/02 Comments No Sex and Gender Information Value Date Recorded Sex Assigned at Not on file Legal Sex Female 9:52 PM CDT Gender Identity Not on file Sexual Orientation Not on file Last Filed Vital Signs Vital Sign Reading Time Taken Comments Blood Pressure 127/88 01/23/2023 11:30 PM MENTAL HEALTH NURSE Pulse 69 01/23/2023 11:30 PM MENTAL HEALTH NURSE Temperature 36.6 C (97.8 F) 01/23/2023 9:05 PM MENTAL HEALTH NURSE Respiratory Rate 16 01/23/2023 9:05 PM MENTAL HEALTH NURSE Oxygen Saturation 97% 01/23/2023 11:30 PM MENTAL HEALTH NURSE Inhaled Oxygen Concentration - - Weight 83.9 kg (185 lb) 01/23/2023 9:05 PM MENTAL HEALTH NURSE Height 157.5 cm (5' 2) 01/23/2023 9:05 PM MENTAL HEALTH NURSE Body Mass Index 33.84 01/23/2023 9:05 PM MENTAL HEALTH NURSE Plan of Treatment Upcoming Encounters Date Type Department Care Team (Late st Contact Info) Description 05/04/2106 Records - [facility] CONVERSION Provider, Historical Procedures Procedure Name Priority Date/Time Associated Diagnosis Comments COMPREHENSIVE METABOLIC PANEL STAT 01/23/2023 9:22 PM MENTAL HEALTH NURSE LIPID PROFILE Routine 06/10/2017 3:35 AM CDT HPV HIGH RISK TYPES DNA CERVICAL Routine 06/18/2014 2:00 PM CDT ABSTRACT PAP (HIM EXTERNAL RESULT) Routine 06/18/2014 from Last 3 Months or Most Recently Relevant to Health Maintenance Results * (ABNORMAL) Comprehensive metabolic panel (01/23/2023 9:22 PM MENTAL HEALTH NURSE) Sodium 139 135 - 145 mmol/L 01/23/2023 9:48 PM MENTAL HEALTH NURSE [facility] Comment:Reference intervals for this test were updated on 11/06/2022 to more accurately reflect our healthy population. There may be differences in the flagging of prior results with similar values performed with this method. Interpretation of those prior results can be made in the context of the updated reference intervals. Potassium 4.2 3.4 - 5.3 mmol/L 01/23/2023 9:48 PM MENTAL HEALTH NURSE [facility] Carbon Dioxide (CO2) 29 22 - 29 mmol/L 01/23/2023 9:48 PM MENTAL HEALTH NURSE [facility] Anion Gap 9 7 - 15 mmol/L 01/23/2023 9:48 PM MENTAL HEALTH NURSE [facility] Urea Nitrogen 9.6 6.0 - 20.0 mg/dL 01/23/2023 9:48 PM MENTAL HEALTH NURSE [facility] Creatinine 1.25(H) 0.51 - 0.95 mg/dL 01/23/2023 9:48 PM MENTAL HEALTH NURSE [facility] GFR Estimate 54(L) >60 mL/min/1. 73m2 01/23/2023 9:48 PM MENTAL HEALTH NURSE [facility] Calcium 9.9 8.6 - 10.0 mg/dL 01/23/2023 9:48 PM MENTAL HEALTH NURSE [facility] Chloride 101 98 - 107 mmol/L 01/23/2023 9:48 PM MENTAL HEALTH NURSE [facility] Glucose 120(H) 70 - 99 mg/dL 01/23/2023 9:48 PM MENTAL HEALTH NURSE [facility] Alkaline Phosphatase 122 40 - 150 U/L 01/23/2023 9:48 PM MENTAL HEALTH NURSE [facility] Comment:Reference intervals for this test were updated on 12/25/2022 to more accurately reflect our healthy population. There may be differences in the flagging of prior results with similar values performed with this method. Interpretation of those prior results can be made in the context of the updated reference intervals. AST 22 0 - 45 U/L 01/23/2023 9:48 PM MENTAL HEALTH NURSE [facility] Comment:Reference intervals for this test were updated on 07/23/2022 to more accurately reflect our healthy population. There may be differences in the flagging of prior results with similar values performed with this method. Interpretation of those prior results can be made in the context of the updated reference intervals. ALT 22 0 - 50 U/L 01/23/2023 9:48 PM MENTAL HEALTH NURSE [facility] Comment:Reference intervals for this test were updated on 07/23/2022 to more accurately reflect our healthy population. There may be differences in the flagging of prior results with similar values performed with this method. Interpretation of those prior results can be made in the context of the updated reference intervals. Protein Total 7.3 6.4 - 8.3 g/dL 01/23/2023 9:48 PM MENTAL HEALTH NURSE [facility] Albumin 4.6 3.5 - 5.2 g/dL 01/23/2023 9:48 PM MENTAL HEALTH NURSE [facility] Bilirubin Total 0.4 <=1.2 mg/dL 01/23/2023 9:48 PM MENTAL HEALTH NURSE [facility] Blood STRUCTURE OF LEFT UPPER LIMB / Unknown Venipuncture / Unknown 01/23/2023 9:22 PM MENTAL HEALTH NURSE 01/23/2023 9:27 PM MENTAL HEALTH NURSE Lucila White MD LAB - BLOOD ORDERABLES F inal Result LABORATORY [facility] [address] [facility] (1st floor, no room number) [place] [address], [facility] [phone] * (ABNORMAL) Lipid Profile (06/10/2017 3:35 AM CDT) [facility] Triglycerides 145 <=149 mg/dL 06/10/2017 4:01 AM CDT [facility] Cholesterol 200(H) <=199 mg/dL 06/10/2017 4:01 AM CDT [facility] LDL Cholesterol Calculated 137(H) <=129 mg/dL 06/10/2017 4:01 AM CDT [facility] Direct Measure HDL 34(L) >=50 mg/dL 06/10/2017 4:01 AM CDT [facility] Blood specimen (specimen) Venipuncture / Unknown 06/10/2017 3:35 AM CDT 06/10/2017 3:40 AM CDT Hussein Jackson MD LAB - BLOOD ORDERABLES Final Re sult [facility] [address] [place] [address], [facility] [address] [place] [address] * (ABNORMAL) HPV High Risk Types DNA Cervical (06/18/2014 2:00 PM CDT) Interpretation High Risk HPV Type(s) Detected(A) No HPV Type(s) Detected, No High Risk HPV Type(s) Detected, DNA Quantity Not Sufficient 06/25/2014 11:41 AM CDT [facility] Director Of Residence Life Donato Jauregui MD, [employer] 06/25/2014 11:41 AM CDT [facility] Comment: Testing was performed at [facility], [address] [place] [address], [facility], with final verification at the [...] this laboratory-developed test (LDT) were determined by [employer] pursuant to Clinical Laboratory Improvement Amendments (CLIA 88) requirements. It has not been cleared or approved by the U.S. Food and Drug Administration (FDA). The FDA has determined that such clearance or approval is not a requirement prior to use for clinical purposes. Cheyenne Choudhury MD LAB - BLOOD ORDERABLES [place] gan Result [facility] [address] [place] [address], [facility] [address] [place] [address] * (ABNORMAL) ABSTRACT PAP-NO CHARGE (06/18/2014) PAP-ABSTRACT See Scanned Document(A) [facility]) 06/18/2014 Narrative [facility]) - 06/18/2014 PAP SMEAR [facility] us Provider Outside LAB - HIM EXTERNAL RESULT Final Result [facility] [address] [place] [address], [facility] from Last 3 Months or Most Recently Relevant to Health Maintenance Insurance [facility] Member Subscriber Plan / Payer (Ef fective 2021-Present) Name:Isabel Markmarilou Mcconnell Relation to Subscriber:Self Name:Siena Mark Payer ID:[id number] (NAIC) Group ID:Not on file Type:[employer] Address: [address] [place] [address] [address] [facility] Member Subscriber Plan / Payer (Ef fective 2021-Present) Name:Siena Mark Relation to Subscriber:Self Name:Siena Mark Payer ID:[id number] (NAIC) Group ID:Not on file Type:[employer] Address: [address] [place] [address] Advance Directives For more information, please contact: [phone] * Full Code (Latest Code Status on File) Date Activated Date Inactivated Comments 02/13/2018 4:23 PM 09/26/2018 11:40 PM Question Answer Comments Code status determined by: Discussion with patie nt/legal decision maker * Full Code Date Activated Date Inactivated Comments 02/13/2018 6:34 AM 02/13/2018 4:23 PM Question Answer Comments Code status determined by: Discussion with patie nt/legal decision maker Care Teams Artisan Plasterer Relationship Specialty Start Date End Date Fadi Quick MD PCP - General Family Medicine 05/20/20
--- OUTSIDE RECORDS SUMMARY | 2024-01-02 10:10 | XMS_ITS | Clinical Summary ---
Author Organization [facility] Address [place], [place] [address] Care Team Providers Care Manager Nursing Home Name Role Phone Fadi Quick MD Primary Care Provider [phone] Allergies No known active allergies Medications Medication [...] 67 06/29/2022 11:45 PM CDT Temperature 36.8 C (98.2 F) 06/29/2022 10:11 PM CDT Respiratory Rate 20 06/30/2022 12:37 AM CDT [...] for age 45-75 2022 COVID-19 vaccine series (2023- season) 2023 Influenza for age 9-49 10/13/2023 Pneumococcal series for age 6-64 Aged Out No longer eligible b ased on patient's age to complete this topic Advance Directives * Full Code (Latest Code Status on File) Date Activated Date Inactivated Comments 06/30/2022 12:17 AM 06/30/2022 3:44 AM Question Answer Comments Code Status Discussion: Reviewed Preferences Care Teams Manager Nursing Home Relationship Specialty Start Date End Date Fadi Quick MD [address] [place] [address] PCP - General Family Practice 04/07/20
--- OUTSIDE RECORDS SUMMARY | 2024-01-02 10:10 | XMS_ITS | Encounter Summary ---
Author Organization [facility] Address [address] [place] [address] Care Team Providers Care Computer Information Systems Professor Name Role Phone Cheyenne Choudhury MD Primary Care Provider Fadi Quick MD Primary Care Provider [phone] Encounter Details Date Type Department Care Team (Late Contact Info) Description 05/23/2013 Records - [facility] CONVERSION Scan, Non-Provider Social History Tobacco Use Types Packs/Day Years Used Date Smoking Tobacco: Never Assessed Comments Unknown Sex and Gender Information Value Date Recorded Sex Assigned at Not on file Legal Sex Female 9:52 PM CDT Gender Identity Not on file Sexual Orientation Not on file documented as of this encounter Plan of Treatment Upcoming Encounters Date Type Department Care Team ([facility] Contact Info) Description 05/04/2106 Records - [facility] CONVERSION Provider, Historical documented as of this encounter Visit Diagnoses Not on filedocumented in this encounter Additional Health Concerns Infection Onset Date Last Indicated Resolved Time Rule Out COVID-19 03/31/2022 03/31/2022 03/31/2022 8:51 PM SOLUTION DEVELOPER Rule Out COVID-19 04/20/2022 04/20/2022 04/20/2022 10:39 AM SOLUTION DEVELOPER documented as of this encounter Care Teams Computer Information Systems Professor Relationship Specialty Start Date End Date Cheyenne Choudhury MD PCP - General Family Practice 08/12/16 05/19/20 Fadi Quick MD PCP - General Family Medicine 05/20/20 documented as of this encounter
--- OUTSIDE RECORDS SUMMARY | 2024-01-02 10:10 | XMS_ITS | Clinical Summary ---
Author Organization [facility] Address [address] [place] [address] Care Team Providers Care Artificial Stone Applicator Name Role Phone Fdai Quick MD Primary Care Provider [phone] Allergies No known active allergies Medications lubiprostone [...] mouth daily Active neomycin-polymy abimbola-hydrocortis one (CORTISPORIN) 3.5-53534-[address] 3 drops into the [...] Comments Blood Pressure 127/88 01/23/2023 11:30 PM SECURITIES ANALYST Pulse 69 01/23/2023 11:30 PM SECURITIES ANALYST Temperature 36.6 C (97.8 F) 01/23/2023 9:05 PM SECURITIES ANALYST Respiratory Rate 16 01/23/2023 9:05 PM SECURITIES ANALYST Oxygen Saturation 97% 01/23/2023 11:30 PM SECURITIES ANALYST Inhaled Oxygen Concentration - - Weight 83.9 kg (185 lb) 01/23/2023 9:05 PM SECURITIES ANALYST Height 157.5 cm (5' 2) 01/23/2023 9:05 PM SECURITIES ANALYST Body Mass Index 33.84 01/23/2023 9:05 PM SECURITIES ANALYST Plan of Treatment Upcoming Encounters Date Type [...] (2 - 3-dose SCDM series) 08/14/2021 07/17/2021 PHQ-2 (once per calendar year) 2023 ADVANCE CARE PLANNING 02/14/2023 02/14/2018 COVID-19 Vaccine ( - 2023- season) 2023 04/21/2021, 04/21/2021, 03/21/2021 INFLUENZA VACCINE (#1) 2023 6, 11/28/2005, 11/28/2005, Additional history exists DTAP/TDAP/TD IMMUNIZATION (2 - Td or Tdap) 11/04/2024 11/04/2014 GLUCOSE 01/23/2026 01/23/2023, 04/11, 04/07/2022, Additional history exists HPV TEST 04/06/2027 04/06/2022, 06/18/2014 PAP 04/06/2027 04/06/2022, 09/2014, 06/18/2014 RSV VACCINE (1 - 1-dose 75+ series) 02/09/2052 MENINGITIS IMMUNIZATION Aged Out No l onger eligible based on patient's age to complete this topic RSV MONOCLONAL ANTIBODY Aged Out No l onger eligible based on patient's age to complete this topic Procedures Procedure Name Priority Date/Time Associated Diagnosis Comments COMPREHENSIVE METABOLIC PANEL STAT 01/23/2023 9:22 PM SECURITIES ANALYST LIPID PROFILE Routine 06/10/2017 3:35 AM CDT HPV HIGH RISK TYPES DNA CERVICAL Routine 06/18/2014 2:00 PM CDT ABSTRACT PAP (HIM EXTERNAL RESULT) Routine 06/18/2014 from Last 3 Months or Most Recently Relevant to Health Maintenance Results * (ABNORMAL) Comprehensive metabolic panel (01/23/2023 9:22 PM SECURITIES ANALYST) Sodium 139 135 - 145 mmol/L 01/23/2023 9:48 PM SECURITIES ANALYST [facility] Comment:Reference intervals for this test were updated on 11/06/2022 to more accurately reflect our healthy population. There may be differences in the flagging of prior results with similar values performed with this method. Interpretation of those prior results can be made in the context of the updated reference intervals. Potassium 4.2 3.4 - 5.3 mmol/L 01/23/2023 9:48 PM SECURITIES ANALYST [facility] Carbon Dioxide (CO2) 29 22 - 29 mmol/L 01/23/2023 9:48 PM SECURITIES ANALYST [facility] Anion Gap 9 7 - 15 mmol/L 01/23/2023 9:48 PM SECURITIES ANALYST [facility] Urea Nitrogen 9.6 6.0 - 20.0 mg/dL 01/23/2023 9:48 PM SECURITIES ANALYST [facility] Creatinine 1.25(H) 0.51 - 0.95 mg/dL 01/23/2023 9:48 PM SECURITIES ANALYST [facility] GFR Estimate 54(L) >60 mL/min/1. 73m2 01/23/2023 9:48 PM SECURITIES ANALYST [facility] Calcium 9.9 8.6 - 10.0 mg/dL 01/23/2023 9:48 PM SECURITIES ANALYST [facility] Chloride 101 98 - 107 mmol/L 01/23/2023 9:48 PM SECURITIES ANALYST [facility] Glucose 120(H) 70 - 99 mg/dL 01/23/2023 9:48 PM SECURITIES ANALYST [facility] Alkaline Phosphatase 122 40 - 150 U/L 01/23/2023 9:48 PM SECURITIES ANALYST [facility] Comment:Reference intervals for this test were updated on 12/25/2022 to more accurately reflect our healthy population. There may be differences in the flagging of prior results with similar values performed with this method. Interpretation of those prior results can be made in the context of the updated reference intervals. AST 22 0 - 45 U/L 01/23/2023 9:48 PM SECURITIES ANALYST [facility] Comment:Reference intervals for this test were updated on 07/23/2022 to more accurately reflect our healthy population. There may be differences in the flagging of prior results with similar values performed with this method. Interpretation of those prior results can be made in the context of the updated reference intervals. ALT 22 0 - 50 U/L 01/23/2023 9:48 PM SECURITIES ANALYST [facility] Comment:Reference intervals for this test were updated on 07/23/2022 to more accurately reflect our healthy population. There may be differences in the flagging of prior results with similar values performed with this method. Interpretation of those prior results can be made in the context of the updated reference intervals. Protein Total 7.3 6.4 - 8.3 g/dL 01/23/2023 9:48 PM SECURITIES ANALYST [facility] Albumin 4.6 3.5 - 5.2 g/dL 01/23/2023 9:48 PM SECURITIES ANALYST [facility] Bilirubin Total 0.4 <=1.2 mg/dL 01/23/2023 9:48 PM SECURITIES ANALYST [facility] Blood STRUCTURE OF LEFT UPPER LIMB / Unknown Venipuncture / Unknown 01/23/2023 9:22 PM SECURITIES ANALYST 01/23/2023 9:27 PM SECURITIES ANALYST Lucila White MD LAB - BLOOD ORDERABLES F inal Result LABORATORY [facility] [address] Lab (1st floor, no room number) [place] [address], [facility] [phone] * (ABNORMAL) Lipid Profile (06/10/2017 3:35 AM CDT) Triglycerides 145 <=149 mg/dL 06/10/2017 4:01 AM CDT [facility] Cholesterol 200(H) <=199 mg/dL 06/10/2017 4:01 AM CDT [facility] LDL Cholesterol Calculated 137(H) <=129 mg/dL 06/10/2017 4:01 AM CDT [facility] Direct Measure HDL 34(L) >=50 mg/dL 06/10/2017 4:01 AM CDT [facility] Blood specimen (specimen) Venipuncture / Unknown 06/10/2017 3:35 AM CDT 06/10/2017 3:40 AM CDT Hussein Jackson MD LAB - BLOOD ORDERABLES Final Re sult [facility] [address] [place] [address], [facility] [address] [place] [address] * (ABNORMAL) HPV High Risk Types DNA Cervical (06/18/2014 2:00 PM CDT) Interpretation High Risk HPV Type(s) Detected(A) No HPV Type(s) Detected, No High Risk HPV Type(s) Detected, DNA Quantity Not Sufficient 06/25/2014 11:41 AM CDT [facility] Electric Deicer Inspector Donato Jauregui MD, [employer] 06/25/2014 11:41 AM CDT [facility] Comment: Testing was performed at [facility], [address] [place] [address], [facility], with final verification at the indicated laboratory. [...] this laboratory-developed test (LDT) were determined by [facility] pursuant to Clinical Laboratory Improvement Amendments (CLIA 88) requirements. It has not been cleared or approved by the U.S. Food and Drug Administration (FDA). The FDA has determined that such clearance or approval is not a requirement prior to use for clinical purposes. Cheyenne Choudhury MD LAB - BLOOD ORDERABLES Suma gan Result [facility] [address] [place] [address], [facility] [address] [place] [address] * (ABNORMAL) ABSTRACT PAP-NO CHARGE (06/18/2014) PAP-ABSTRACT See Scanned Document(A) [facility]) 06/18/2014 Narrative [facility]) - 06/18/2014 PAP [facility] us Provider Outside LAB - HIM EXTERNAL RESULT Final Result [facility]) [address] [place] [address], [facility] from Last 3 Months or Most Recently Relevant to Health Maintenance Insurance [facility] [phone] [address] [facility] Advance Directives For more information, please contact: [phone] * Full Code (Latest Code Status on File) Date Activated Date Inactivated Comments 02/13/2018 4:23 PM 09/26/2018 11:40 PM Question Answer Comments Code status determined by: Discussion with patie nt/legal decision maker * Full Code Date Activated Date Inactivated Comments 02/13/2018 6:34 AM 02/13/2018 4:23 PM Question Answer Comments Code status determined by: Discussion with patie nt/legal decision maker Care Teams Artificial Stone Applicator Relationship Specialty Start Date End Date Fadi Quick MD PCP - General Family Medicine 05/20/20
--- OUTSIDE RECORDS SUMMARY | 2024-01-02 10:10 | XMS_ITS | Encounter Summary ---
Author Organization [facility] Address [address] [address] Care Team Providers Care Property Assistant Name Role Phone Fadi Quick MD Primary Care Provider [phone] Encounter Details Date Type Department Care Team (Late Contact Info) Description 08/27/2017 Scanned History [facility] [address] [place], [place] [id number] Provider, Not On File [address] [place] [address] HH CONTRAST INJECTION ASSESSMENT Social History Tobacco Use [...] Upcoming Encounters Date Type Department Care Team ([facility] Contact Info) Description 01/20/2024 1:20 PM DOPEMAN Appointment [facility] [place] [address] [place] [address] Elisha Loyola, OD [address] [place] [address] documented as of this encounter Visit Diagnoses [...] documented as of this encounter Care Teams Property Assistant Relationship Specialty Start Date End Date Fadi Quick MD [address] [place] [address] PCP - General Family Practice 06/06/20 documented as of this encounter
--- OUTSIDE RECORDS SUMMARY | 2024-01-02 10:10 | XMS_ITS | Clinical Summary ---
Author Organization [facility] Address [address] [place] [address] Care Team Providers Care Coping Machine Assembler Name Role Phone Fadi Quick MD Primary Care Provider [phone] Source Comments You are receiving this document as you are listed as the primary care provider,follow-up provider, or the patient has been referred to you for consultation.This is in compliance with the Medicare andGrant Hospitalcaid EHR Incentive Program,which states Providers who transition their patient to another setting of careor provider of care or refers their patient to another provider of care shouldprovide summary care record for each transition of care or referral. GeoOP Allergies Active Allergy Reactions Criticality Noted Date [...] (05/10/2023): Added automatically from request for surgery [id number] [facility] Review: History: 06/2014: ASCUS, HPV+ 06/2020: Vagina and cervix, biopsy- Invasive squamous cell carcinoma, moderately differentiated. Treatment: chemoradiation and vaginal brachytherapy 03/2021: LSIL, HPV+ Other 03/2022: ASC-H HPV+ Other / no colposcopy 03/2023: LSIL HPV neg Plan, per Kristin Sands PA-C: Continue routine surveillance with [facility] Abnormal vaginal bleeding 06/17/2020 Acute blood [...] (hyperlipidemia) 06/03/2020 Coronary artery disease invo lving [place] coronary artery of [place] heart without angina pectoris 07/16/2017 Overview (07/16/2017): NSTEMI and 06/09/17. ECHO June 2017: EF 54%, hypokinetic basal inferolateral, basal anterolateral, mid inferolateral and mid anterolateral On Plavix until May 2018. 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 07/16/2017 Other insomnia 07/16/2017 H/O non-ST elevation myocardial infarction (NSTE AL) 07/16/2017 HTN (hypertension) HLD (hyperlipidemia) Tobacco abuse Resolved Problems Problem Noted Date Diagnosed Date Resolved Date Chest pain 06/09/2017 07/16/2017 Immunizations Name Administration Dates Next Due 9vHPV [...] 76 04/25/2023 2:57 PM CDT Temperature 37 C (98.6 F) 11/19/2021 10:37 PM CDT Respiratory Rate 20 11/20/2021 2:11 [...] Care Team (Late st Contact Info) Description 01/20/2024 1:20 PM RN PEDIATRIC ICU Appointment [facility] [place] [address] [place] [address] Elisha Loyola OD [address] [place] [address] Health Maintenance Due Date Last Done Comments Colon Cancer Screening Plan Due 1977 Hep C Screening (Preventive Services) 1975 Mammogram 1975 Pneumococcal (1 - PCV) [...] on patient's age to complete this topic Infant RSV Aged Out No longer eligi ble based on patient's age to complete this topic MCV4 Aged Out No longer eligi ble based on patient's age to complete this topic Procedures Procedure Name Priority Date/Time Associated Diagnosis Comments PAP TEST Routine 04/11/2023 2:16 PM RN PEDIATRIC ICU Squamous cell carcinoma of cervix (HRC) HIV 1/2 AG/AB 4TH GEN Routine 09/05/2020 11:15 AM CDT Screen for STD (sexually transmitted disease) LIPID PANEL & DIRECT LDL (IF NEEDED) Routine 08/27/2020 4:16 AM CDT HGB A1C STAT 06/07/2020 9:17 AM CDT from Last 3 Months or Most Recently Relevant to Health Maintenance Results * (ABNORMAL) PAP Test (04/11/2023 2:16 PM RN PEDIATRIC ICU) Case Report Pap Case: [id number] Authorizing Provider: Kristin Sands PA-C Collected: 04/11/2023 1416 Ordering Location: [facility] Sarah Ann Gynecologic Received: 04/11/2023 1434 Oncology First Screen: Rosamaria Bangura Pathologist: Williams Rodriguez MD Specimen: Pap Test, Routine, Cervix/Endocervix 05/08/2023 5:04 PM CDT [facility] Pap Specimen Adequacy Satisfactory for evaluation, endocervical/peck sformation zone component absent. 05/08/2023 5:04 PM CDT [facility] Pap Interpretation (LSIL) Low-grade squamous intraepithelial lesion, encompassing HPV/mild dysplasia/UNRULY 1.(A) 05/08/2023 5:04 PM CDT [facility] Pap Disclaimer The Pap test is a screening test to aid in the detection of cervical and vaginal cancers and their precursor lesions. It is not a diagnostic procedure and should not be used as the sole means of detecting malignancy. Both false-positive and false-negative results may occur. 05/08/2023 5:04 PM CDT [facility] Gross Description The specimen is received in SurePath fixative and properly labeled. 1 Pap-stained SurePath slide is prepared. 05/08/2023 5:04 PM CDT [facility] Embedded Images 5:04 PM CDT [facility] Other Specimen Type ENTIRE ENDOCERVIX / Unknown 04/11/2023 2:16 PM RN PEDIATRIC ICU 04/11/2023 2:34 PM RN PEDIATRIC ICU Comment:LMP: Patient's last menstrual period was 05/25/2020 (lmp unknown). S/p chemo-RT for cervical cancer Kristin Sands PA-C LAB PATHOLOGY [facility] [address] [employer] [address] * HIV 1/2 Ag/Ab 4th Generation (09/05/2020 11:15 AM CDT) [facility] HIV 1/2 Antigen/Antib elizabeth (4th generation) Negative (Non Reactive) Negative (Non Reactive) 09/05/2020 12:11 PM CDT [facility] Comment:HIV-1 p24 Antigen an d HIV-1/HIV-2 Antibody not detected Blood Venipuncture / Unknown 09/05/2020 11:15 AM CDT 09/05/2020 11:30 AM CDT Benita Sanderson APRN, CNP LAB_1 Performing Organization Address [facility] de Phone Number [facility] [address] * (ABNORMAL) LIPID PANEL AND DIRECT LDL(IF NEEDED) (08/27/2020 4:16 AM CDT) [facility] Cholesterol 110 0 - 199 mg/dL 08/27/2020 4:51 AM CDT [facility] Triglyceride 258(H) <=149 mg/dL 08/27/2020 4:51 AM CDT [facility] HDL Cholesterol 27(L) >=40 mg/dL 4:51 AM CDT [facility] LDL, Calculated 31 <130 mg/dL 4:51 AM CDT [facility] Non HDL Chol, Calculated 83 <=159 mg/dL 08/27/2020 4:51 AM CDT [facility] Cholesterol/HDL Ratio 4.1 08/27/2020 4:51 AM CDT [facility] Blood Venipuncture / Unknown 08/27/2020 4:16 AM CDT 08/27/2020 4:29 AM CDT [facility] LAB_1 Performing Organization Address City/[facility]/ZIP Co de Phone Number [facility] [address] * (ABNORMAL) HGB A1C (06/07/2020 9:17 AM CDT) Hemoglobin A1C 6.2(H) <=5.6 % 06/07/2020 2:48 PM CDT [facility] Blood Venipuncture / Unknown 06/07/2020 9:17 AM CDT 06/07/2020 9:31 AM CDT Narrative [facility] 06/07/2020 2:48 PM CDT For patients not previously diagnosed with diabetes: 5.7-6.4%: Increased risk for diabetes 6.5% and greater: Diagnostic for diabetes For patients diagnosed with diabetes: <8.0%: Goal of therapy for ages 18-75 Clinicians may recommend a higher or lower goal for specific individuals. Onel You MD LAB_1 Performing Organization Address City/State/[facility] Co de Phone Number [facility] [address] [phone] from Last 3 Months or Most Recently [...] 10:21 AM 06/08/2020 8:18 PM Care Teams Coping Machine Assembler Relationship Specialty Start Date End Date Fadi Quick MD [address] [place] [address] PCP - General Family Practice 06/06/20
--- OUTSIDE RECORDS SUMMARY | 2024-01-02 10:11 | XMS_ITS | Encounter Summary ---
Author Organization [facility] Address [address], [place] [address] Care Team Providers Care Baseball Coach Name Role Phone Fadi Quick MD Primary Care Provider [phone] Encounter Details Date Type Department Care Team (Late Contact Info) Description 09/16/1997 Orders Only [facility] [address] [place] [address] Samia Covington MD Social History Tobacco Use Types Packs/Day Years Used Date Smoking Tobacco: Never Assessed Sex and Gender Information Value Date Recorded Sex Assigned at Not on file Gender Identity Not on file Sexual Orientation Not on file documented as of this encounter Plan of Treatment Upcoming Encounters Date Type Department Care Team (Late Contact Info) Description 01/20/2024 1:20 PM SUMMER CAMP COUNSELOR Appointment [facility] [place] [address] [place] [phone] Elisha Loyola, OD [address] [place] [address] documented as of this encounter Visit Diagnoses [...] documented as of this encounter Care Teams Baseball Coach Relationship Specialty Start Date End Date Fadi Quick MD [address] [place] [address] PCP - General Family Practice 06/06/20 documented as of this encounter
--- OUTSIDE RECORDS SUMMARY | 2024-01-02 10:11 | XMS_ITS | Encounter Summary ---
Author Organization [facility] Address [address] [address] Care Team Providers Care Youth Services Specialist Name Role Phone Fadi Quick MD Primary Care Provider [phone] Encounter Details Date Type Department Care Team (Late Contact Info) Description 06/09/2017 Flowsheet [facility] [address] [place] [address] Provider, Not On File [address] [place] [address] HH CONTRAST INJECTION ASSESSMENT Social History Tobacco [...] ([facility] Contact Info) Description 01/20/2024 1:20 PM WATCH CRYSTAL MOLDER [facility]ment [facility] [place] [address] [place] [address] Elisha Loyola, OD [address] [place] [address] documented as of this encounter Visit Diagnoses [...] documented as of this encounter Care Teams Youth Services Specialist Relationship Specialty Start Date End Date Fadi Quick MD [address] [place] [address] PCP - General Family Practice 06/06/20 documented as of this encounter
--- OUTSIDE RECORDS SUMMARY | 2024-01-02 10:11 | XMS_ITS | Encounter Summary ---
Author Organization [facility] Address [address] [place] [address] Care Team Providers Care Morgue Technician Name Role Phone Fadi Quick MD Primary Care Provider [phone] Encounter Details Date Type Department Care Team [...] as of this encounter Progress Notes * [facility], PROVIDER - 04/13/2012 12:00 AM CST documented in this encounter Plan of Treatment Upcoming Encounters Date Type Department Care Team (Late Contact Info) Description 01/20/2024 1:20 PM SECURITY INFRASTRUCTURE ENGINEER Appointment [facility] [place] [address] [place] [phone] Elisha Loyola, OD [address] [place] [address] documented as of this encounter Visit Diagnoses [...] documented as of this encounter Care Teams Morgue Technician Relationship Specialty Start Date End Date Fadi Quick MD [address] [place] [address] PCP - General Family Practice 06/06/20 documented as of this encounter
--- OUTSIDE RECORDS SUMMARY | 2024-01-02 10:11 | XMS_ITS | Encounter Summary ---
[facility] Address [address] [place] [address] Care Team Providers Care Mowing Machine Operator Name Role Phone Fadi Quick MD Primary Care Provider [phone] Encounter Details Date Type Department Care Team [...] as of this encounter Progress Notes * [facility], PROVIDER - 04/13/2012 12:00 AM CST WELDER documented in this encounter Plan of Treatment Upcoming Encounters Date Type Department Care Team (Late Contact Info) Description 01/20/2024 1:20 PM LINE WELDER Appointment [facility] [place] [address] [place] [phone] Elisha Loyola, OD [address] [place] [address] documented as of this encounter Visit Diagnoses [...] documented as of this encounter Care Teams Mowing Machine Operator Relationship Specialty Start Date End Date Fadi Quick MD [address] [place] [address] PCP - General Family Practice 06/06/20 documented as of this encounter
--- OUTSIDE RECORDS SUMMARY | 2024-01-02 10:11 | XMS_ITS | Encounter Summary ---
Author Organization [facility] Address [address] [address] Care Team Providers Care Hogshead Mat Inspector Name Role Phone Fadi Quick MD [...] (Late Contact Info) Description 01/20/2024 1:[address] [facility] [place] [address] [place] [phone] Elisha Loyola, OD [address] [place] [address] documented as of this encounter Visit Diagnoses [...] documented as of this encounter Care Teams Hogshead Mat Inspector Relationship Specialty Start Date End Date Fadi Quick MD [address] [place] [address] PCP - General Family Practice 06/06/20 documented as of this encounter
--- OUTSIDE RECORDS SUMMARY | 2024-01-02 10:11 | XMS_ITS | Encounter Summary ---
Author Organization [facility] Address [address] [address] Care Team Providers Care Sawyer Cork Slabs Name Role Phone Fadi Quick MD Primary Care Provider [phone] Encounter Details Date Type Department Care Team (Late Contact Info) Description 09/22/1997 Orders Only [facility] [address] [place] [address] Samia Covington MD Social History Tobacco Use Types Packs/Day Years Used Date Smoking Tobacco: Never Assessed Sex and Gender Information Value Date Recorded Sex Assigned at Not on file Gender Identity Not on file Sexual Orientation Not on file documented as of this encounter Plan of Treatment Upcoming Encounters Date Type Department Care Team (Late Contact Info) Description 01/20/2024 1:20 PM COOK FRUIT Appointment [facility] [place] [address] [place] [phone] Elisha Loyola, OD [address] [place] [address] documented as of this encounter Visit Diagnoses [...] documented as of this encounter Care Teams Sawyer Cork Slabs Relationship Specialty Start Date End Date Fadi Quick MD [address] [place] [address] PCP - General Family Practice 06/06/20 documented as of this encounter
--- OUTSIDE RECORDS SUMMARY | 2024-01-02 10:11 | XMS_ITS | Encounter Summary ---
Author Organization [facility] [place] Address [address] [place] [address] Care Team Providers Care Group Worker Name Role Phone Fadi Quick MD [...] as of this encounter Progress Notes * [facility], PROVIDER - 04/11/2012 12:00 AM CST IC HEALTH EPIDEMIOLOGIST documented in this encounter Plan of Treatment Upcoming Encounters Date Type Department Care Team (Late Contact Info) Description 01/20/2024 1:20 PM PUBLIC HEALTH EPIDEMIOLOGIST Appointment [facility] [place] [id number] [place] [phone] Elisha Loyola, OD [address] [place] [address] documented as of this encounter Visit Diagnoses [...] documented as of this encounter Care Teams Group Worker Relationship Specialty Start Date End Date Fadi Quick MD [address] [place] [address] PCP - General Family Practice 06/06/20 documented as of this encounter
--- OUTSIDE RECORDS SUMMARY | 2024-01-02 10:11 | XMS_ITS | Encounter Summary ---
Author Organization [facility] Address [address] [place] [address] Care Team Providers Care Deputy Chief Counsel Name Role Phone Fadi Quick MD Primary Care Provider [phone] Encounter Details Date Type Department Care Team [...] as of this encounter Progress Notes * [facility], PROVIDER - 04/13/2012 12:00 AM CST documented in this encounter Plan of Treatment Upcoming Encounters Date Type Department Care Team (Late Contact Info) Description 01/20/2024 1:20 PM HOUSEHOLD CHORES Appointment [facility] [place] [address] [place] [phone] Elisha Loyola, OD [address] [place] [address] documented as of this encounter Visit Diagnoses [...] documented as of this encounter Care Teams Deputy Chief Counsel Relationship Specialty Start Date End Date Fadi Quick MD [address] [place] [address] PCP - General Family Practice 06/06/20 documented as of this encounter
--- OUTSIDE RECORDS SUMMARY | 2024-01-02 10:11 | XMS_ITS | Encounter Summary ---
Author Organization [facility] Address [address] [place] [address] Care Team Providers Care Flight Test Shop Mechanic Name Role Phone Fadi Quick MD Primary Care Provider [phone] Encounter Details Date Type Department Care Team (Late Contact Info) Description 04/11/2012 Emergency Room External to [facility], Provider ACUTE MYOCARDIAL INFARCTIONS OF INFEROLATERAL [...] as of this encounter Progress Notes * [facility], Provider - 04/11/2012 12:00 AM CST documented in this encounter Plan of Treatment Upcoming Encounters Date Type Department Care Team (Late Contact Info) Description 01/20/2024 1:20 PM COMPUTER APPLICATIONS DEVELOPER Appointment [facility] [place] [address] [place] [phone] Elisha Loyola, OD [address] [place] [address] documented as of this encounter Visit Diagnoses [...] documented as of this encounter Care Teams Flight Test Shop Mechanic Relationship Specialty Start Date End Date Fadi Quick MD [address] [facility] [address] PCP - General Family Practice 06/06/20 documented as of this encounter
--- OUTSIDE RECORDS SUMMARY | 2024-01-02 10:11 | XMS_ITS | Encounter Summary ---
Author Organization [facility] Address [address] [place] [address] Care Team Providers Care Repairer Kiln Car Name Role Phone Fadi Quick MD Primary Care Provider [phone] Encounter Details Date Type Department Care Team [...] as of this encounter Progress Notes * [facility], PROVIDER - 04/13/2012 12:00 AM CST RDIST CHIEF documented in this encounter Plan of Treatment Upcoming Encounters Date Type Department Care Team (Late Contact Info) Description 01/20/2024 1:20 PM RECORDIST CHIEF Appointment [facility] [place] [id number] [place] [phone] Elisha Loyola, OD [address] [place] [address] documented as of this encounter Visit Diagnoses [...] documented as of this encounter Care Teams Repairer Kiln Car Relationship Specialty Start Date End Date Fadi Quick MD [address] [place] [address] PCP - General Family Practice 06/06/20 documented as of this encounter
--- OUTSIDE RECORDS SUMMARY | 2024-01-02 10:11 | XMS_ITS | Encounter Summary ---
Author Organization [facility] Address [address] [place] [address] Care Team Providers Care Debeaker Name Role Phone Fadi Quick MD Primary Care Provider [phone] Encounter Details Date Type Department Care Team [...] as of this encounter Progress Notes * [facility], PROVIDER - 04/13/2012 12:00 AM CST documented in this encounter Plan of Treatment Upcoming Encounters Date Type Department Care Team (Late Contact Info) Description 01/20/2024 1:20 PM SUPERVISOR CONDITIONING YARD Appointment [facility] [place] [address] [place] [phone] Elisha Loyola, OD [address] [place] [address] documented as of this encounter Visit Diagnoses [...] documented as of this encounter Care Teams Debeaker Relationship Specialty Start Date End Date Fadi Quick MD [address] [place] [address] PCP - General Family Practice 06/06/20 documented as of this encounter
--- OUTSIDE RECORDS SUMMARY | 2024-01-02 10:11 | XMS_ITS | Encounter Summary ---
Author Organization [facility] Address [address] [place] [address] Care Team Providers Care Design Maker Name Role Phone Fadi Quick MD Primary Care Provider [phone] Encounter Details Date Type Department Care Team (Late Contact Info) Description 10/30/2016 Flowsheet [facility] [address] [place] [address] Provider, Not On File [address] [place] [address] HH CONTRAST INJECTION ASSESSMENT Social History Tobacco [...] Upcoming Encounters Date Type Department Care Team ([facility] Contact Info) Description 01/20/2024 1:20 PM REPORTING MANAGER Appointment [facility] [place] [address] [place] [phone] Elisha Loyola, OD [address] [place] [address] documented as of this encounter Visit Diagnoses [...] documented as of this encounter Care Teams Design Maker Relationship Specialty Start Date End Date Fadi Quick MD [address] [place] [address] PCP - General Family Practice 06/06/20 documented as of this encounter
--- NOTE | 2024-01-02 10:40 | W.ANESCHARGE ---
Anesthesia Charges Start Date/Time Anesthesia Start Date: 01/02/24 Anesthesia Start Time: 10:45 Stop Date/Time Anesthesia Stop Date: 01/02/24 Anesthesia Stop Time: 11:17
== END 2024-01-02 10:08 | disposition home or self-care (01) ==
LOC: OP CLINIC 10:08
PROVIDERS: PCP Family Medicine; Visit Provider Internal Medicine
DX: Z12.11 Encounter for screening for malignant neoplasm of colon (principal); K56.699 Other intestinal obstruction unspecified as to partial versus complete obstruction
CPT/HCPCS: 00812; 45378; J2704

== ENCOUNTER 2024-01-16 09:41 | Outpatient (CLI) | payer MEDICAID, SELFPAY ==
--- OUTSIDE RECORDS SUMMARY | 2024-01-16 09:53 | XMS_ITS | Encounter Summary ---
Author Organization [facility] Address [address] [place] [address] Care Team Providers Care Concrete Bucket Loader Name Role Phone Cheyenne Choudhury MD Primary Care Provider Fadi Quick MD Primary Care Provider [phone] Encounter Details Date Type Department Care Team [...] Upcoming Encounters Date Type Department Care Team ([facility] Contact Info) Description 05/04/2106 Records - [facility] CONVERSION Provider, Historical documented as of this encounter Visit Diagnoses Not on filedocumented in this encounter Additional Health Concerns Infection Onset Date Last Indicated Resolved Time Rule Out COVID-19 03/31/2022 03/31/2022 03/31/2022 8:51 PM SURGICAL ATTENDANT Rule Out COVID-19 04/20/2022 04/20/2022 04/20/2022 10:39 AM SURGICAL ATTENDANT documented as of this encounter Care Teams Concrete Bucket Loader Relationship Specialty Start Date End Date Cheyenne Choudhury MD PCP - General Family Practice 08/12/16 05/19/20 Fadi Quick MD PCP - General Family Medicine 05/20/20 documented as of this encounter
--- OUTSIDE RECORDS SUMMARY | 2024-01-16 09:53 | XMS_ITS | Clinical Summary ---
Author Organization [facility] Address [address] [place] [address] Care Team Providers Care Hvac Manager Name Role Phone Fadi Quick MD Primary Care Provider [phone] Allergies No known active allergies Medications lubiprostone [...] mouth daily Active neomycin-polymy abimbola-hydrocortis one (CORTISPORIN) 3.5-32216-[address] 3 drops into the [...] Comments Blood Pressure 127/88 01/23/2023 11:30 PM BUTTON BROACHER Pulse 69 01/23/2023 11:30 PM BUTTON BROACHER Temperature 36.6 C (97.8 F) 01/23/2023 9:05 PM BUTTON BROACHER Respiratory Rate 16 01/23/2023 9:05 PM BUTTON BROACHER Oxygen Saturation 97% 01/23/2023 11:30 PM BUTTON BROACHER Inhaled Oxygen Concentration - - Weight 83.9 kg (185 lb) 01/23/2023 9:05 PM BUTTON BROACHER Height 157.5 cm (5' 2) 01/23/2023 9:05 PM BUTTON BROACHER Body Mass Index 33.84 01/23/2023 9:05 PM BUTTON BROACHER Plan of Treatment Upcoming Encounters Date Type [...] COMPREHENSIVE METABOLIC PANEL STAT 01/23/2023 9:22 PM BUTTON BROACHER LIPID PROFILE Routine 06/10/2017 3:35 AM CDT HPV HIGH RISK TYPES DNA CERVICAL Routine 06/18/2014 2:00 PM CDT ABSTRACT PAP (HIM EXTERNAL RESULT) Routine 06/18/2014 from Last 3 Months or Most Recently Relevant to Health Maintenance Results * (ABNORMAL) Comprehensive metabolic panel (01/23/2023 9:22 PM BUTTON BROACHER) Sodium 139 135 - 145 mmol/L 01/23/2023 9:48 PM BUTTON BROACHER [facility] Comment:Reference intervals for this test were updated on 11/06/2022 to more accurately reflect our healthy population. There may be differences in the flagging of prior results with similar values performed with this method. Interpretation of those prior results can be made in the context of the updated reference intervals. Potassium 4.2 3.4 - 5.3 mmol/L 01/23/2023 9:48 PM BUTTON BROACHER [facility] Carbon Dioxide (CO2) 29 22 - 29 mmol/L 01/23/2023 9:48 PM BUTTON BROACHER [facility] Anion Gap 9 7 - 15 mmol/L 01/23/2023 9:48 PM BUTTON BROACHER [facility] Urea Nitrogen 9.6 6.0 - 20.0 mg/dL 01/23/2023 9:48 PM BUTTON BROACHER [facility] Creatinine 1.25(H) 0.51 - 0.95 mg/dL 01/23/2023 9:48 PM BUTTON BROACHER [facility] GFR Estimate 54(L) >60 mL/min/1. 73m2 01/23/2023 9:48 PM BUTTON BROACHER [facility] Calcium 9.9 8.6 - 10.0 mg/dL 01/23/2023 9:48 PM BUTTON BROACHER [facility] Chloride 101 98 - 107 mmol/L 01/23/2023 9:48 PM BUTTON BROACHER [facility] Glucose 120(H) 70 - 99 mg/dL 01/23/2023 9:48 PM BUTTON BROACHER [facility] Alkaline Phosphatase 122 40 - 150 U/L 01/23/2023 9:48 PM BUTTON BROACHER [facility] Comment:Reference intervals for this test were updated on 12/25/2022 to more accurately reflect our healthy population. There may be differences in the flagging of prior results with similar values performed with this method. Interpretation of those prior results can be made in the context of the updated reference intervals. AST 22 0 - 45 U/L 01/23/2023 9:48 PM BUTTON BROACHER [facility] Comment:Reference intervals for this test were updated on 07/23/2022 to more accurately reflect our healthy population. There may be differences in the flagging of prior results with similar values performed with this method. Interpretation of those prior results can be made in the context of the updated reference intervals. ALT 22 0 - 50 U/L 01/23/2023 9:48 PM BUTTON BROACHER [facility] Comment:Reference intervals for this test were updated on 07/23/2022 to more accurately reflect our healthy population. There may be differences in the flagging of prior results with similar values performed with this method. Interpretation of those prior results can be made in the context of the updated reference intervals. Protein Total 7.3 6.4 - 8.3 g/dL 01/23/2023 9:48 PM BUTTON BROACHER [facility] Albumin 4.6 3.5 - 5.2 g/dL 01/23/2023 9:48 PM BUTTON BROACHER [facility] Bilirubin Total 0.4 <=1.2 mg/dL 01/23/2023 9:48 PM BUTTON BROACHER [facility] Blood STRUCTURE OF LEFT UPPER LIMB / Unknown Venipuncture / Unknown 01/23/2023 9:22 PM BUTTON BROACHER 01/23/2023 9:27 PM BUTTON BROACHER Lucila White MD LAB - BLOOD ORDERABLES F inal Result LABORATORY [facility] [address] Lab (1st floor, no room number) [place] [address], [facility] [phone] * (ABNORMAL) Lipid Profile (06/10/2017 3:35 AM CDT) Triglycerides 145 <=149 mg/dL 06/10/2017 4:[address] [facility] Cholesterol 200(H) <=199 mg/dL 06/10/2017 4:01 AM CDT [facility] LDL Cholesterol Calculated 137(H) <=129 mg/dL 06/10/2017 4:01 AM CDT [facility] Direct Measure HDL 34(L) >=50 mg/dL 06/10/2017 4:01 AM CDT [facility] Blood specimen (specimen) Venipuncture / Unknown 06/10/2017 3:35 AM CDT 06/10/2017 3:40 AM CDT Hussein Jackson MD LAB - BLOOD ORDERABLES Final Re sult [facility] [address] [place] [address], [facility] [address] [place] [address] * (ABNORMAL) HPV High Risk Types DNA Cervical (06/18/2014 2:00 PM CDT) Interpretation High Risk HPV Type(s) Detected(A) No HPV Type(s) Detected, No High Risk HPV Type(s) Detected, DNA Quantity Not Sufficient 06/25/2014 11:41 AM CDT [facility] Control Panel Tester Donato Jauregui MD, [employer] 06/25/2014 11:41 AM CDT [facility] Comment: Testing was performed at [facility], [address] [place] [address], [facility], with final verification at the indicated laboratory. [...] this laboratory-developed test (LDT) were determined by [employer] pursuant to Clinical Laboratory Improvement Amendments (CLIA 88) requirements. It has not been cleared or approved by the U.S. Food and Drug Administration (FDA). The FDA has determined that such clearance or approval is not a requirement prior to use for clinical purposes. Cheyenne Choudhury MD LAB - BLOOD ORDERABLES Suma gan Result [facility] [address] [place] [address], [facility] [address] [place] [address] * (ABNORMAL) ABSTRACT PAP-NO CHARGE (06/18/2014) PAP-ABSTRACT See Scanned Document(A) [facility]) 06/18/2014 Narrative [facility]) - 06/18/2014 PAP SMEAR [facility] us Provider Outside LAB - HIM EXTERNAL RESULT Final Result [facility] [address] [place] [address], [facility] from Last 3 Months or Most Recently Relevant to Health Maintenance Insurance [facility] [id number] [address] [facility] Advance Directives For more information, please contact: [phone] * Full Code (Latest Code Status on File) Date Activated Date Inactivated Comments 02/13/2018 4:23 PM 09/26/2018 11:40 PM Question Answer Comments Code status determined by: Discussion with patie nt/legal decision maker * Full Code Date Activated Date Inactivated Comments 02/13/2018 6:34 AM 02/13/2018 4:23 PM Question Answer Comments Code status determined by: Discussion with patie nt/legal decision maker Care Teams Hvac Manager Relationship Specialty Start Date End Date Fadi Quick MD PCP - General Family Medicine 05/20/20
--- OUTSIDE RECORDS SUMMARY | 2024-01-16 09:53 | XMS_ITS | Clinical Summary ---
Author Organization [facility] Address [place], [place] [address] Care Team Providers Care Box Printing Machine Operator Name Role Phone Fadi Quick MD Primary Care Provider Allergies No known active allergies Medications Medication [...] Code Status Discussion: Reviewed Preferences Care Teams Box Printing Machine Operator Relationship Specialty Start Date End Date Fadi Quick [place] [address] [place] [address] PCP - General Family Practice 04/07/20
--- OUTSIDE RECORDS SUMMARY | 2024-01-16 09:53 | XMS_ITS | Referral Summary ---
Author Organization [facility] Address [address] [place] [address] Care Team Providers Care Self Pay Representative Name Role Phone Fadi Quick MD Primary Care Provider [phone] Allergies No known active allergies Medications lubiprostone [...] mouth daily Active neomycin-polymy abimbola-hydrocortis one (CORTISPORIN) 3.5-37623-[address] 3 drops into the [...] Comments Blood Pressure 127/88 01/23/2023 11:30 PM PRIVATE ADVISOR Pulse 69 01/23/2023 11:30 PM PRIVATE ADVISOR Temperature 36.6 C (97.8 F) 01/23/2023 9:05 PM PRIVATE ADVISOR Respiratory Rate 16 01/23/2023 9:05 PM PRIVATE ADVISOR Oxygen Saturation 97% 01/23/2023 11:30 PM PRIVATE ADVISOR Inhaled Oxygen Concentration - - Weight 83.9 kg (185 lb) 01/23/2023 9:05 PM PRIVATE ADVISOR Height 157.5 cm (5' 2) 01/23/2023 9:05 PM PRIVATE ADVISOR Body Mass Index 33.84 01/23/2023 9:05 PM PRIVATE ADVISOR Plan of Treatment Upcoming Encounters Date Type Department Care Team (Late st Contact Info) Description 05/04/2106 Records - [facility] CONVERSION Provider, Historical Procedures Procedure Name Priority Date/Time Associated Diagnosis Comments COMPREHENSIVE METABOLIC PANEL STAT 01/23/2023 9:22 PM PRIVATE ADVISOR LIPID PROFILE Routine 06/10/2017 3:35 AM CDT HPV HIGH RISK TYPES DNA CERVICAL Routine 06/18/2014 2:00 PM CDT ABSTRACT PAP (HIM EXTERNAL RESULT) Routine 06/18/2014 from Last 3 Months or Most Recently Relevant to Health Maintenance Results * (ABNORMAL) Comprehensive metabolic panel (01/23/2023 9:22 PM PRIVATE ADVISOR) Sodium 139 135 - 145 mmol/L 01/23/2023 9:48 PM PRIVATE ADVISOR [facility] Comment:Reference intervals for this test were updated on 11/06/2022 to more accurately reflect our healthy population. There may be differences in the flagging of prior results with similar values performed with this method. Interpretation of those prior results can be made in the context of the updated reference intervals. Potassium 4.2 3.4 - 5.3 mmol/L 01/23/2023 9:48 PM PRIVATE ADVISOR [facility] Carbon Dioxide (CO2) 29 22 - 29 mmol/L 01/23/2023 9:48 PM PRIVATE ADVISOR [facility] Anion Gap 9 7 - 15 mmol/L 01/23/2023 9:48 PM PRIVATE ADVISOR [facility] Urea Nitrogen 9.6 6.0 - 20.0 mg/dL 01/23/2023 9:48 PM PRIVATE ADVISOR [facility] Creatinine 1.25(H) 0.51 - 0.95 mg/dL 01/23/2023 9:48 PM PRIVATE ADVISOR [facility] GFR Estimate 54(L) >60 mL/min/1. 73m2 01/23/2023 9:48 PM PRIVATE ADVISOR [facility] Calcium 9.9 8.6 - 10.0 mg/dL 01/23/2023 9:48 PM PRIVATE ADVISOR [facility] Chloride 101 98 - 107 mmol/L 01/23/2023 9:48 PM PRIVATE ADVISOR [facility] Glucose 120(H) 70 - 99 mg/dL 01/23/2023 9:48 PM PRIVATE ADVISOR [facility] Alkaline Phosphatase 122 40 - 150 U/L 01/23/2023 9:48 PM PRIVATE ADVISOR [facility] Comment:Reference intervals for this test were updated on 12/25/2022 to more accurately reflect our healthy population. There may be differences in the flagging of prior results with similar values performed with this method. Interpretation of those prior results can be made in the context of the updated reference intervals. AST 22 0 - 45 U/L 01/23/2023 9:48 PM PRIVATE ADVISOR [facility] Comment:Reference intervals for this test were updated on 07/23/2022 to more accurately reflect our healthy population. There may be differences in the flagging of prior results with similar values performed with this method. Interpretation of those prior results can be made in the context of the updated reference intervals. ALT 22 0 - 50 U/L 01/23/2023 9:48 PM PRIVATE ADVISOR [facility] Comment:Reference intervals for this test were updated on 07/23/2022 to more accurately reflect our healthy population. There may be differences in the flagging of prior results with similar values performed with this method. Interpretation of those prior results can be made in the context of the updated reference intervals. Protein Total 7.3 6.4 - 8.3 g/dL 01/23/2023 9:48 PM PRIVATE ADVISOR [facility] Albumin 4.6 3.5 - 5.2 g/dL 01/23/2023 9:48 PM PRIVATE ADVISOR [facility] Bilirubin Total 0.4 <=1.2 mg/dL 01/23/2023 9:48 PM PRIVATE ADVISOR [facility] Blood STRUCTURE OF LEFT UPPER LIMB / Unknown Venipuncture / Unknown 01/23/2023 9:22 PM PRIVATE ADVISOR 01/23/2023 9:27 PM PRIVATE ADVISOR Lucila White MD LAB - BLOOD ORDERABLES F inal Result LABORATORY [facility] Lab [address] [facility] Lab (1st floor, no room number) [place] [address], [facility] [phone] * (ABNORMAL) Lipid Profile (06/10/2017 3:35 AM CDT) [facility] Triglycerides 145 <=149 mg/dL 06/10/2017 4:01 AM CDT [facility] Cholesterol 200(H) <=199 mg/dL 06/10/2017 4:01 AM CDT [facility] LDL Cholesterol Calculated 137(H) <=129 mg/dL 06/10/2017 4:01 AM CDT [facility] Direct Measure HDL 34(L) >=50 mg/dL 06/10/2017 4:01 AM CDT [facility] Blood specimen (specimen) Venipuncture / Unknown 06/10/2017 3:35 AM CDT 06/10/2017 3:40 AM CDT Hussein Jackson MD LAB - BLOOD ORDERABLES Final Re sult [facility] [address] [place] [address], [facility] [address] [place] [address] * (ABNORMAL) HPV High Risk Types DNA Cervical (06/18/2014 2:00 PM CDT) Interpretation High Risk HPV Type(s) Detected(A) No HPV Type(s) Detected, No High Risk HPV Type(s) Detected, DNA Quantity Not Sufficient 06/25/2014 11:41 AM CDT [facility] Commodity Manager Donato Jauregui MD, [employer] 06/25/2014 11:41 AM CDT [facility] Comment: Testing was performed at [facility], [address] [place] [address], [facility], with final verification at the indicated [...] this laboratory-developed test (LDT) were determined by [employer] pursuant to Clinical Laboratory Improvement Amendments (CLIA 88) requirements. It has not been cleared or approved by the U.S. Food and Drug Administration (FDA). The FDA has determined that such clearance or approval is not a requirement prior to use for clinical purposes. Cheyenne Choudhury MD LAB - BLOOD ORDERABLES Suma gan Result [facility] [address] [place] [address], [facility] [address] [place] [address] * (ABNORMAL) ABSTRACT PAP-NO CHARGE (06/18/2014) PAP-ABSTRACT See Scanned Document(A) [facility]) 06/18/2014 Narrative [facility]) - 06/18/2014 PAP SMEAR [facility] us Provider Outside LAB - HIM EXTERNAL RESULT Final Result [facility] [address] [place] [address], [facility] from Last 3 Months or Most Recently Relevant to Health Maintenance Insurance [facility] [id number] [address] [facility] Advance Directives For more information, please contact: [phone] * Full Code (Latest Code Status on File) Date Activated Date Inactivated Comments 02/13/2018 4:23 PM 09/26/2018 11:40 PM Question Answer Comments Code status determined by: Discussion with patie nt/legal decision maker * Full Code Date Activated Date Inactivated Comments 02/13/2018 6:34 AM 02/13/2018 4:23 PM Question Answer Comments Code status determined by: Discussion with patie nt/legal decision maker Care Teams Self Pay Representative Relationship Specialty Start Date End Date Fadi Quick MD PCP - General Family Medicine 05/20/20
--- OUTSIDE RECORDS SUMMARY | 2024-01-16 09:54 | XMS_ITS ---
[facility] Organization [facility] Address [address], [place] [address] Care Team Providers Care Cold Meat Chef Name Role Phone Fadi Quick MD Primary Care Provider [phone] Active Problems Problem Noted Date Diagnosed Date [...] (05/10/2023): Added automatically from request for surgery [id number] [facility] Review: History: 06/2014: ASCUS, HPV+ 06/2020: Vagina and cervix, biopsy- Invasive squamous cell carcinoma, moderately differentiated. Treatment: chemoradiation and vaginal brachytherapy 03/2021: LSIL, HPV+ Other 03/2022: ASC-H HPV+ Other / no colposcopy 03/2023: LSIL HPV neg Plan, per Kristin Sands PA-C: Continue routine surveillance with inbound customer service agent onc Abnormal vaginal bleeding 06/17/2020 Acute blood [...] (hyperlipidemia) 06/03/2020 Coronary artery disease invo lving [place] coronary artery of [place] heart without angina pectoris 07/16/2017 Overview (07/16/2017): NSTEMI and 06/09/17. ECHO June 2017: EF 54%, hypokinetic basal inferolateral, basal anterolateral, mid inferolateral and mid anterolateral On Plavix until May 2018. 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 Past Plans Medications Plan Name Start Date Discontinue Date Treatment Medications Discontinue Reason Plan Provider HYDRATION THERAPY (FLUIDS) 07/21/2020 06/11/2022 alteplase (CATHFLO ACTIVASE)heparinhe mehdi PF (Pork)magnesium sulfatesodium chloride 0.9 %sodium chloride 0.9% Therapy Complete Benita Sanderson, CEMETERY COUNSELOR, PRESENTATION MANAGER ONCOLOGY TREATMENT Plan Name Start Date Discontinue [...] are documented for this patient in [facility]. Treatments may have been administered in another system. Resolved Problems Problem Noted Date Diagnosed Date Resolved Date Chest pain 06/09/2017 07/16/2017
--- OUTSIDE RECORDS SUMMARY | 2024-01-16 09:54 | XMS_ITS | Encounter Summary ---
Author Organization [facility] Address [address] [address] Care Team Providers Care Title Insurance Sales Representative Name Role Phone Fadi Quick MD Primary Care Provider [phone] Encounter Details Date Type Department Care Team (Late Contact Info) Description 08/27/2017 Scanned History [facility] [address] [place], [place] [id number] Provider, Not On File [address] [place] [address] HH CONTRAST INJECTION ASSESSMENT Social History Tobacco [...] Upcoming Encounters Date Type Department Care Team ([facility] Contact Info) Description 01/20/2024 1:20 PM PRINTER SLOTTER OPERATOR Appointment [facility] [place] [address] [place] [address] Elisha Loyola, OD [address] [place] [address] documented as of this encounter Visit Diagnoses [...] documented as of this encounter Care Teams Title Insurance Sales Representative Relationship Specialty Start Date End Date Fadi Quick MD [address] [place] [address] PCP - General Family Practice 06/06/20 documented as of this encounter
--- OUTSIDE RECORDS SUMMARY | 2024-01-16 09:54 | XMS_ITS | Encounter Summary ---
Author Organization [facility] Address [address] [place] [address] Care Team Providers Care Quality Control Microbiologist Name Role Phone Fadi Quick MD Primary Care Provider [phone] Encounter Details Date Type Department Care Team [...] as of this encounter Progress Notes * [facility], PROVIDER - 04/13/2012 12:00 AM CST documented in this encounter Plan of Treatment Upcoming Encounters Date Type Department Care Team (Late Contact Info) Description 01/20/2024 1:20 PM RECLAMATION WORKER Appointment [facility] [place] [address] [place] [phone] Elisha Loyola, OD [address] [place] [address] documented as of this encounter Visit Diagnoses [...] documented as of this encounter Care Teams Quality Control Microbiologist Relationship Specialty Start Date End Date Fadi Quick MD [address] [place] [address] PCP - General Family Practice 06/06/20 documented as of this encounter
--- OUTSIDE RECORDS SUMMARY | 2024-01-16 09:54 | XMS_ITS | Encounter Summary ---
Author Organization [facility] Address [address] [place] [address] Care Team Providers Care Combination Presser Name Role Phone Fadi Quick MD Primary Care Provider [phone] Encounter Details Date Type Department Care Team [...] as of this encounter Progress Notes * [facility], PROVIDER - 04/13/2012 12:00 AM CST documented in this encounter Plan of Treatment Upcoming Encounters Date Type Department Care Team (Late Contact Info) Description 01/20/2024 1:20 PM BIOFUELS PRODUCTION ASSOCIATE Appointment [facility] [place] [id number] [place] [phone] Elisha Loyola, OD [address] [place] [address] documented as of this encounter Visit Diagnoses [...] documented as of this encounter Care Teams Combination Presser Relationship Specialty Start Date End Date Fadi Quick MD [address] [place] [address] PCP - General Family Practice 06/06/20 documented as of this encounter
--- OUTSIDE RECORDS SUMMARY | 2024-01-16 09:54 | XMS_ITS | Encounter Summary ---
Author Organization [facility] Address [address] [place] [address] Care Team Providers Care Graduate Internship Name Role Phone Fadi Quick MD Primary Care Provider [phone] Encounter Details Date Type Department Care Team [...] as of this encounter Progress Notes * [facility], PROVIDER - 04/13/2012 12:00 AM CST documented in this encounter Plan of Treatment Upcoming Encounters Date Type Department Care Team (Late Contact Info) Description 01/20/2024 1:20 PM EMD SPECIAL EDUCATION TEACHER Appointment [facility] [place] [address] [place] [phone] Elisha Loyola, OD [address] [place] [place] [place] [address] documented as of this encounter Visit Diagnoses [...] documented as of this encounter Care Teams Graduate Internship Relationship Specialty Start Date End Date Fadi Quick MD [address] [place] [address] PCP - General Family Practice 06/06/20 documented as of this encounter
--- OUTSIDE RECORDS SUMMARY | 2024-01-16 09:54 | XMS_ITS | Encounter Summary ---
Author Organization Counts include 234 beds at the [facility] Address [address], [place] [address] Care Team Providers Care Costume Mistress Name Role Phone Fadi Quick MD Primary Care Provider [phone] Encounter Details Date Type Department Care Team (Late Contact Info) Description 09/22/1997 Orders Only [facility] [address] [place] [address] Samia Covington MD Social History Tobacco Use Types Packs/Day Years Used Date Smoking Tobacco: Never Assessed Sex and Gender Information Value Date Recorded Sex Assigned at Not on file Gender Identity Not on file Sexual Orientation Not on file documented as of this encounter Plan of Treatment Upcoming Encounters Date Type Department Care Team (Late Contact Info) Description 01/20/2024 1:20 PM HEAD ESTHETICIAN Appointment [facility] [place] [address] [place] [phone] Elisha Loyola, OD [address] [place] [address] documented as of this encounter Visit Diagnoses [...] documented as of this encounter Care Teams Costume Mistress Relationship Specialty Start Date End Date Fadi Quick MD [address] [place] [address] PCP - General Family Practice 06/06/20 documented as of this encounter
--- OUTSIDE RECORDS SUMMARY | 2024-01-16 09:54 | XMS_ITS | Clinical Summary ---
Author Organization [facility] Address [address] [place] [address] Care Team Providers Care Pathology Technician Name Role Phone Fadi Quick MD Primary Care Provider [phone] Source Comments You are receiving this document as you are listed as the primary care provider,follow-up provider, or the patient has been referred to you for consultation.This is in compliance with the Medicare and[facility] EHR Incentive Program,which states Providers who transition their patient to another setting of careor provider of care or refers their patient to another provider of care shouldprovide summary care record for each transition of care or referral. [employer] Allergies Active Allergy Reactions Criticality Noted [...] (05/10/2023): Added automatically from request for surgery [id number] [facility] Review: History: 06/2014: ASCUS, HPV+ 06/2020: Vagina and cervix, biopsy- Invasive squamous cell carcinoma, moderately differentiated. Treatment: chemoradiation and vaginal brachytherapy 03/2021: LSIL, HPV+ Other 03/2022: ASC-H HPV+ Other / no colposcopy 03/2023: LSIL HPV neg Plan, per Kristin Sands PA-C: Continue routine surveillance with laundry housekeeping aide onc Abnormal vaginal bleeding 06/17/2020 Acute blood [...] (hyperlipidemia) 06/03/2020 Coronary artery disease invo lving [place] coronary artery of [place] heart without angina pectoris 07/16/2017 Overview (07/16/2017): NSTEMI and 06/09/17. ECHO June 2017: EF 54%, hypokinetic basal inferolateral, basal anterolateral, mid inferolateral and mid anterolateral On Plavix until May 2018. 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 07/16/2017 Other insomnia 07/16/2017 H/O non-ST elevation myocardial infarction (NSTE MD) 07/16/2017 HTN (hypertension) HLD (hyperlipidemia) Tobacco abuse [...] st Contact Info) Description 01/20/2024 1:20 PM WIND PROJECTS SUPERVISOR Appointment [facility] [place] [address] [place] [phone] Elisha Loyola OD [address] [place] [address] Health Maintenance Due Date Last Done Comments [...] Comments PAP TEST Routine 04/11/2023 2:16 PM WIND PROJECTS SUPERVISOR Squamous cell carcinoma of cervix (HRC) HIV 1/2 AG/AB 4TH GEN Routine 09/05/2020 11:15 AM CDT Screen for STD (sexually transmitted disease) LIPID PANEL & DIRECT LDL (IF NEEDED) Routine 08/27/2020 4:16 AM CDT HGB A1C STAT 06/07/2020 9:17 AM CDT from Last 3 Months or Most Recently Relevant to Health Maintenance Results * (ABNORMAL) PAP Test (04/11/2023 2:16 PM WIND PROJECTS SUPERVISOR) Case Report Pap Case: [id number] Authorizing Provider: Kristin Sands PA-C Collected: 04/11/2023 1416 Ordering Location: [facility] Received: 04/11/2023 1434 Oncology First Screen: Rosamaria Bangura Pathologist: Williams Rodriguez MD Specimen: Pap Test, Routine, Cervix/Endocervix 05/08/2023 5:04 PM CDT [facility] Pap Specimen Adequacy Satisfactory for evaluation, endocervical/peck sformation zone component absent. 05/08/2023 5:04 PM CDT [facility] Pap Interpretation (LSIL) Low-grade squamous intraepithelial lesion, encompassing HPV/mild dysplasia/UNRULY 1.(A) 05/08/2023 5:04 PM CDT [facility] Pap Disclaimer The Pap test is a screening test to aid in the detection of cervical and vaginal cancers and their precursor lesions. It is not a diagnostic procedure and should not be used as the sole means of detecting malignancy. Both false-positive and false-negative results may occur. 05/08/2023 5:04 PM CDT [facility] Gross Description The specimen is received in SurePath fixative and properly labeled. 1 Pap-stained SurePath slide is prepared. 05/08/2023 5:04 PM CDT [facility] Embedded Images 5:04 PM CDT [facility] Other Specimen Type ENTIRE ENDOCERVIX / Unknown 04/11/2023 2:16 PM WIND PROJECTS SUPERVISOR 04/11/2023 2:34 PM WIND PROJECTS SUPERVISOR Comment:LMP: Patient's last menstrual period was 05/25/2020 (lmp unknown). S/p chemo-RT for cervical cancer Kristin Sands PA-C LAB PATHOLOGY [facility] [address] * HIV 1/2 Ag/Ab 4th Generation (09/05/2020 11:15 AM CDT) [facility] HIV 1/2 Antigen/Antib elizabeth (4th generation) Negative (Non Reactive) Negative (Non Reactive) 09/05/2020 12:11 PM CDT [facility] Comment:HIV-1 p24 Antigen an d HIV-1/HIV-2 Antibody not detected Blood Venipuncture / Unknown 09/05/2020 11:15 AM CDT 09/05/2020 11:30 AM CDT Benita Sanderson APRN, CNP LAB_1 Performing Organization Address [facility] de Phone Number [facility] [address] * (ABNORMAL) LIPID PANEL AND DIRECT LDL(IF NEEDED) (08/27/2020 4:16 AM CDT) [facility] Cholesterol 110 0 - 199 mg/dL 08/27/2020 4:51 AM CDT [facility] Triglyceride 258(H) <=149 mg/dL 08/27/2020 4:51 AM CDT [facility] HDL Cholesterol 27(L) >=40 mg/dL 4:51 AM CDT [facility] LDL, Calculated 31 <130 mg/dL 4:51 AM CDT [facility] Non HDL Chol, Calculated 83 <=159 mg/dL 08/27/2020 4:51 AM CDT [facility] Cholesterol/HDL Ratio 4.1 08/27/2020 4:51 AM CDT [facility] Blood Venipuncture / Unknown 08/27/2020 4:16 AM CDT 08/27/2020 4:29 AM CDT Tk [facility]ITH LAB_1 Performing Organization Address City/[facility]/ZIP Co de Phone Number [facility] [address] * (ABNORMAL) HGB A1C (06/07/2020 9:17 AM CDT) Hemoglobin A1C 6.2(H) <=5.6 % 06/07/2020 2:48 PM CDT [facility] Blood Venipuncture / Unknown 06/07/2020 9:17 AM CDT 06/07/2020 9:31 AM CDT Narrative [facility] - 06/07/2020 2:48 PM CDT For patients not previously diagnosed with diabetes: 5.7-6.4%: Increased risk for diabetes 6.5% and greater: Diagnostic for diabetes For patients diagnosed with diabetes: <8.0%: Goal of therapy for ages 18-75 Clinicians may recommend a higher or lower goal for specific individuals. Onel You MD LAB_1 Performing Organization Address City/State/[facility] Co de Phone Number [facility] [address] [phone] from Last 3 Months or Most Recently [...] 10:21 AM 06/08/2020 8:18 PM Care Teams Pathology Technician Relationship Specialty Start Date End Date Fadi Quick MD [address] [place] [address] PCP - General Family Practice 06/06/20
--- OUTSIDE RECORDS SUMMARY | 2024-01-16 09:54 | XMS_ITS | Encounter Summary ---
Author Organization [facility] Address [address], [place] [address] Care Team Providers Care Telephone Messenger Name Role Phone Fadi Quick MD Primary Care Provider [phone] Encounter Details Date Type Department Care Team (Late Contact Info) Description 10/30/2016 Flowsheet [facility] [address] [place] [address] Provider, Not On File [address] [place] [address] HH CONTRAST INJECTION ASSESSMENT Social History Tobacco [...] Department Care Team ([facility] Contact Info) Description 01/20/2024 1:20 PM BELT PRESS OPERATOR Appointment [facility] [place] [address] [place] [phone] Elisha Loyola, OD [address] [place] [address] documented as of this encounter Visit Diagnoses [...] documented as of this encounter Care Teams Telephone Messenger Relationship Specialty Start Date End Date Fadi Quick MD [address] [place] [address] PCP - General Family Practice 06/06/20 documented as of this encounter
--- OUTSIDE RECORDS SUMMARY | 2024-01-16 09:54 | XMS_ITS | Encounter Summary ---
Author Organization [facility] Address [address] [place] [address] Care Team Providers Care Gas Meter Checker Name Role Phone Fadi Quick MD Primary Care Provider [phone] Encounter Details Date Type Department Care Team [...] of this encounter Progress Notes * [facility], PROVIDER - 04/11/2012 12:00 AM CST AG ELASTIC ATTACHER documented in this encounter Plan of Treatment Upcoming Encounters Date Type Department Care Team (Late Contact Info) Description 01/20/2024 1:20 PM ZIGZAG ELASTIC ATTACHER Appointment [facility] [place] [address] [place] [phone] Elisha Loyola, OD [address] [place] [address] documented as of this encounter Visit Diagnoses [...] documented as of this encounter Care Teams Gas Meter Checker Relationship Specialty Start Date End Date Fadi Quick MD [address] [place] [address] PCP - General Family Practice 06/06/20 documented as of this encounter
--- OUTSIDE RECORDS SUMMARY | 2024-01-16 09:54 | XMS_ITS | Encounter Summary ---
Author Organization [facility] Address [address] [place] [address] Care Team Providers Care Fluid Power Mechanic Name Role Phone Fadi Quick MD Primary Care Provider [phone] Encounter Details Date Type Department Care Team [...] as of this encounter Progress Notes * [facility], PROVIDER - 04/13/2012 12:00 AM CST ONAL CONSULTANT documented in this encounter Plan of Treatment Upcoming Encounters Date Type Department Care Team (Late Contact Info) Description 01/20/2024 1:20 PM PERSONAL CONSULTANT Appointment [place] [facility] [place] [address] [place] [phone] Elisha Loyola, OD [address] [place] [address] documented as of this encounter Visit Diagnoses [...] documented as of this encounter Care Teams Fluid Power Mechanic Relationship Specialty Start Date End Date Fadi Quick MD [address] [place] [address] PCP - General Family Practice 06/06/20 documented as of this encounter
--- OUTSIDE RECORDS SUMMARY | 2024-01-16 09:54 | XMS_ITS | Encounter Summary ---
Author Organization Counts include 234 beds at the [facility] Address [address], [place] [address] Care Team Providers Care Veterinary Manager Name Role Phone Fadi Quick MD Primary Care Provider [phone] Encounter Details Date Type Department Care Team (Late Contact Info) Description 09/16/1997 Orders Only [facility] [address] [place] [address] Samia Covington MD Social History Tobacco Use Types Packs/Day Years Used Date Smoking Tobacco: Never Assessed Sex and Gender Information Value Date Recorded Sex Assigned at Not on file Gender Identity Not on file Sexual Orientation Not on file documented as of this encounter Plan of Treatment Upcoming Encounters Date Type Department Care Team (Late Contact Info) Description 01/20/2024 1:20 PM CREW PERSON Appointment [facility] [place] [address] [place] [phone] Elisha Loyola, OD [address] [place] [address] documented as of this encounter Visit Diagnoses [...] documented as of this encounter Care Teams Veterinary Manager Relationship Specialty Start Date End Date Fadi Quick MD [address] [place] [address] PCP - General Family Practice 06/06/20 documented as of this encounter
--- OUTSIDE RECORDS SUMMARY | 2024-01-16 09:54 | XMS_ITS | Encounter Summary ---
Author Organization [facility] Address [address] [place] [address] Care Team Providers Care Bilingual Instructor Name Role Phone Fadi Quick MD Primary Care Provider [phone] Encounter Details Date Type Department Care Team [...] as of this encounter Progress Notes * [facility], PROVIDER - 04/13/2012 12:00 AM CST GROWER documented in this encounter Plan of Treatment Upcoming Encounters Date Type Department Care Team (Late Contact Info) Description 01/20/2024 1:20 PM TURF GROWER Appointment [facility] [place] [place] [address] [place] [phone] Elisha Loyola, OD [address] [place] [address] documented as of this encounter Visit Diagnoses [...] documented as of this encounter Care Teams Bilingual Instructor Relationship Specialty Start Date End Date Fadi Quick MD [address] [place] [address] PCP - General Family Practice 06/06/20 documented as of this encounter
--- OUTSIDE RECORDS SUMMARY | 2024-01-16 09:54 | XMS_ITS | Encounter Summary ---
Author Organization [facility] Address [address] [address] Care Team Providers Care Diversified Crops Farmer Name Role Phone Fadi Quick MD Primary [...] (Late Contact Info) Description 01/20/2024 1:20 PM UNIX ARCHITECT Appointment [facility] [place] [address] [place] [phone] Elisha Loyola, OD [address] [place] [address] documented as of this encounter Visit Diagnoses [...] documented as of this encounter Care Teams Diversified Crops Farmer Relationship Specialty Start Date End Date Fadi Quick MD [address] [place] [address] PCP - General Family Practice 06/06/20 documented as of this encounter
--- OUTSIDE RECORDS SUMMARY | 2024-01-16 09:54 | XMS_ITS | Encounter Summary ---
Author Organization [facility] Address [address] [place] [address] Care Team Providers Care Basketball Scout Name Role Phone Fadi Quick MD Primary Care Provider [phone] Encounter Details Date Type Department Care Team (Late Contact Info) Description 04/11/2012 Emergency Room External to [facility], Provider ACUTE MYOCARDIAL INFARCTIONS OF INFEROLATERAL WALL [...] encounter Progress Notes * [facility], Provider - 04/11/2012 12:00 AM CST documented in this encounter Plan of Treatment Upcoming Encounters Date Type Department Care Team (Late Contact Info) Description 01/20/2024 1:[address] JUSTICE Appointment [facility] [place] [address] [place] [phone] Elisha Loyola, OD [address] [place] [address] documented as of this encounter Visit Diagnoses [...] documented as of this encounter Care Teams Basketball Scout Relationship Specialty Start Date End Date Fadi Quick MD [address] [facility] [place] [address] PCP - General Family Practice 06/06/20 documented as of this encounter
--- OUTSIDE RECORDS SUMMARY | 2024-01-16 09:54 | XMS_ITS | Encounter Summary ---
Author Organization [facility] Address [address], [place] [address] Care Team Providers Care Tariff Clerk Name Role Phone Fadi Quick MD Primary Care Provider [phone] Encounter Details Date Type Department Care Team (Late Contact Info) Description 06/09/2017 Flowsheet [facility] [address] [place] [address] Provider, Not On File [address] [place] [address] HH CONTRAST INJECTION ASSESSMENT Social History Tobacco [...] Upcoming Encounters Date Type Department Care Team ([facility] Contact Info) Description 01/20/2024 1:20 PM SAS DEVELOPER ANALYST [facility]ment [facility] [place] [address] [place] [phone] Elisha Loyola, OD [address] [place] [address] documented as of this encounter Visit Diagnoses [...] documented as of this encounter Care Teams Tariff Clerk Relationship Specialty Start Date End Date Fadi Quick MD [address] [place] [address] PCP - General Family Practice 06/06/20 documented as of this encounter
== END 2024-01-16 09:42 | disposition home or self-care (01) ==
LOC: LKVREF 09:52
PROVIDERS: PCP Family Medicine; Visit Provider Family Medicine
DX: I10 Essential (primary) hypertension (principal); E03.9 Hypothyroidism, unspecified; E78.5 Hyperlipidemia, unspecified
CPT/HCPCS: 80053; 80061; 84443

== ENCOUNTER 2024-01-19 19:31 | Emergency (ER) | payer MEDICAID, SELFPAY ==
[2024-01-19 19:44] VITALS: BP 121/84; PULSE 80; RESP 18; TEMP 36.4; O2SAT 100; BMI 34.2
--- NOTE | 2024-01-19 20:13 | ED_ITS ---
HPI - General Adult General Chief complaint: Abdominal Pain Stated complaint: Stomach cramps, vomiting, diaherra Time Seen by Provider: 01/19/24 20:12 History of Present Illness HPI narrative: Pt here for stomach cramping w/ diarrhea all day today. In her last BM she noted some blood in her stool. Is scheduled for a CT tomorrow to look for a blockage. Has been alternating Tylenol and ibuprofen w/o relief. Denies fever, travel, or recent abx use. Hx of cervical cancer in 2020 w/ chemo and radiation. 48-year-old woman presenting to the emergency department with extensive diarrhea today. Last bowel movement does have a picture here of it, shows some blood in the bottom of the stool. Has been experiencing pretty intense abdominal cramps. Later questioning, she has had some dysuria which she attributed to diabetes On January 01 of this year had a screening colonoscopy noting a stricture in the mid sigmoid colon. Was not passable and recommended for Cologuard and follow-up with pr gi which she has this coming week. During review of records in June of 2022 was noted to have mild colonic thickening in the sigmoid. History of diverticula as well. Related Data Home Medications ?Medication ?Instructions ?Recorded ?Confirmed budesonide-formoterol HFA 160 2 puff inhalation BID 01/16/24 01/19/24 mcg-4.5 mcg/actuation aerosol inhaler (Symbicort) cetirizine 10 mg tablet (Allergy mg PO PRN 01/16/24 01/16/24 Relief (cetirizine)) fluticasone propionate 50 1 spray intranasal 01/16/24 01/16/24 mcg/actuation nasal spray,suspension Previous Rx's ?Medication ?Instructions ?Recorded albuterol sulfate 1.25 mg/3 mL 1.25 mg (3 mL) inhalation QID PRN 04/19/22 solution for nebulization bronchospasm #90 mL albuterol sulfate 90 mcg/actuation 2 puff inhalation Q6H PRN 04/19/22 aerosol inhaler shortness of breath or wheezing #8.5 grams nebulizer and compressor #1 ea 04/19/22 methylprednisolone 4 mg tablets in See Rx Instructions PO PER PKG DIR 07/15/23 a dose pack (Medrol (Vijay)) #21 ea blood sugar diagnostic (Blood #100 ea 07/26/23 Glucose Test strips) blood-glucose meter (Blood Glucose #1 ea 07/26/23 Monitoring kit) lancets (Accu-Chek Softclix #100 ea 07/26/23 Lancets) blood-glucose sensor (Dexcom G7 #6 ea 07/29/23 Sensor device) blood-glucose transmitter #1 ea 07/30/23 diclofenac sodium 1 % topical gel 2 g topical QID #100 grams 08/19/23 (Arthritis Pain (diclofenac)) aspirin 81 mg tablet,delayed 81 mg PO QDAY #90 tabs 11/22/23 release (Adult Low Dose Aspirin) buspirone 7.5 mg tablet 7.5 mg PO DIRECTED #270 tabs 01/16/24 carvedilol 6.25 mg tablet 6.25 mg PO BID #180 tabs 01/16/24 famotidine 40 mg tablet 40 mg PO QAM PRN heartburn #90 tabs 01/16/24 lorazepam 1 mg tablet 1 mg PO TID PRN anxiety #30 tabs 01/16/24 montelukast 10 mg tablet 10 mg PO QDAY #90 tabs 01/16/24 (Singulair) omeprazole 40 mg capsule,delayed 40 mg PO QPM #90 caps 01/16/24 release ondansetron HCl 4 mg tablet 4 mg PO TID PRN nausea and 01/16/24 vomiting #30 tabs rosuvastatin 40 mg tablet 40 mg PO QDAY #90 tabs 01/16/24 levothyroxine 100 mcg tablet 100 mcg PO QDAY #90 tabs 01/18/24 (Synthroid) spironolactone 25 mg tablet 62.5 mg (2.5 x 25 mg) PO DAILY 01/18/24 #180 tabs hyoscyamine sulfate 0.125 mg tablet 0.25 mg (2 x 0.125 mg) PO QID PRN 01/19/24 Abdominal cramping #20 tabs Allergies Allergy/AdvReac Type Severity Reaction Status Date / Time No Known Allergies Allergy Unknown Verified 01/19/24 19:50 Review of Systems Status of ROS: Reports: 6 or more systems reviewed and unremarkable except as noted in History and below [facility] Medical History Coronary artery disease ?I25.10 - Atherosclerotic heart disease of [place] coronary artery without angina pectoris (ICD-10) New onset type 2 diabetes mellitus ?E11.9 - Type 2 diabetes mellitus without complications (ICD-10) Acute myocardial infarction of anterior wall ?I21.09 - ST elevation (STEMI) myocardial infarction involving other coronary artery of anterior wall (ICD-10) Malignant neoplasm of cervix ?C53.9 - Malignant neoplasm of cervix uteri, unspecified (ICD-10) Cough ?R05.9 - Cough, unspecified (ICD-10) Asthma ?J45.909 - Unspecified asthma, uncomplicated (ICD-10) Noncompliance with medication regimen ?Z91.14 - Patient's other noncompliance with medication regimen (ICD-10) Obesity ?E66.9 - Obesity, unspecified (ICD-10) Hypothyroid ?E03.9 - Hypothyroidism, unspecified (ICD-10) Social History Smoking Status: Current every day smoker How often do you have a drink containing alcohol: never AUDIT-C Alcohol total score: 0 Non-prescribed substance use: denies use service: No Exam Narrative: Exam Narrative: Pleasant. Clearly uncomfortable. Skin is warm and dry. Extremities are without edema. Abdomen is soft without peritoneal signs. Moderately tender in the mid to right abdomen. No masses appreciated. No flank pain. Lungs are clear. Heart with regular rate and rhythm. Const: Vital Signs, click to edit/add: Vital Signs - 24 hr 01/19/24 19:44 Temperature 97.5 F L Pulse Rate [Pulse Oximeter] 80 Respiratory Rate 18 Blood Pressure [Ri ght Upper Arm] 121/84 Pulse Oximetry 100 Oxygen Delivery Me thod Room Air Documenting provider has reviewed patient's vital signs: yes Course Vital Signs Vital signs: Initial Vital Signs Temperature 97.5 F L 01/19/24 19:44 Temperature Source Temporal Artery Scan 01/19/24 19:44 Pulse Rate 80 01/19/24 19:44 Pulse Strength 3+ Normal 01/19/24 19:44 Respiratory Rate 18 01/19/24 19:44 Blood Pressure 121/84 01/19/24 19:44 Blood Pressure Mean 96 01/19/24 19:44 Blood Pressure Position Sitting 01/19/24 19:44 Pulse Oximetry 100 01/19/24 19:44 Oxygen Delivery Method Room Air 01/19/24 19:44 Vital Signs Temperature 97.5 F L 01/19/24 19:44 Pulse Rate 80 01/19/24 19:44 Respiratory Rate 18 01/19/24 19:44 Blood Pressure 121/84 01/19/24 19:44 Pulse Oximetry 100 01/19/24 19:44 Oxygen Delivery Method Room Air 01/19/24 19:44 Temperature 97.5 F L 01/19/24 19:44 Pulse Rate 80 01/19/24 19:44 Respiratory Rate 18 01/19/24 19:44 Blood Pressure 121/84 01/19/24 19:44 Pulse Oximetry 100 01/19/24 19:44 Oxygen Delivery Method Room Air 01/19/24 19:44 Medications Administered Medications: Discontinued Medications Generic Name Dose Route Start Last Admin Trade Name Freq PRN Reason Stop Dose Admin Hydromorphone HCl 0.5 mg 01/19/24 20:34 01/19/24 21:13 Hydromorphone 0.5 Mg/0.5 Ml Inj IVP 01/19/24 20:35 0.5 mg ONCE ONE Administration Hyoscyamine 0.25 mg 01/19/24 21:10 01/19/24 22:11 Hyoscyamine Sulfate 0.125 Mg Tab SUBLINGUAL 01/19/24 21:11 0.25 mg ONCE ONE Administration Sodium Chloride 500 mls @ 1,000 mls/hr 01/19/24 20:34 01/19/24 21:30 0.9 % Sodium Chloride 500 Ml IV 01/19/24 21:03 Infused .Q30M ONE Infusion Sodium Chloride 500 mls @ 1,200 mls/hr 01/19/24 22:11 01/19/24 22:17 0.9 % Sodium Chloride 500 Ml IV 01/19/24 22:35 1,200 mls/hr .Q25M ONE Administration Ketorolac Tromethamine 30 mg 01/19/24 20:34 01/19/24 21:11 Ketorolac 30 Mg/Ml Inj IVP 01/19/24 20:35 30 mg ONCE ONE Administration Oxycodone/Acetaminophen 2 tab 01/19/24 22:53 01/19/24 23:05 Oxycodone/Apap 5-325 Tablet PO 01/19/24 22:54 2 tab ONCE ONE Administration Medical Decision Making MDM Narrative Medical decision making narrative: Will need to help with symptomatic relief for what I think is intestinal colic. I think most likely is colitis. No known exposure. There is this underlying colonic/ stricture however that is currently being worked up. Possibly related to radiation? Less likely to be cancerous? This does seem to contribute to some slowed or difficult bowel movements perhaps sometimes. Perhaps was experiencing some urinary retention. Pain I think those related to intestinal colic and new colitis. Possible diverticulitis. I do not think this is a small-bowel obstruction. Offered anoscopy for evaluation of active bleeding. Initiated IV, ketorolac, Dilaudid and later hyoscyamine for continued discomfort. t home. Did propose doing some labs looking for red flags to prompt further workup/imaging. Labs are reassuring. She is still quite concerned about this degree of abdominal pain. It has been more than a year since CT imaging. I do not think it is unreasonable to reimage. I did independently review CT imaging. Notable wall thickening of the colon left side. Radiology over-read below TECHNIQUE: CT abdomen and pelvis acquired with 89 cc Omnipaque 370 IV contrast. COMPARISON: CT abdomen pelvis 06/14/2022. FINDINGS: Lower chest: Unremarkable. Liver: Unremarkable. Gallbladder and bile ducts: Unremarkable. No stones or inflammation. No biliary dilatation. Pancreas: Unremarkable. No mass or inflammation. Spleen: Unremarkable. Normal in size. No masses. Adrenal glands: Left adrenal nodule measuring 1.0 cm, similar to prior. Right adrenal nodule measuring 1.1 cm, similar to prior. Kidneys: Unremarkable. No suspicious masses, stones, or hydronephrosis. GI tract: Prominent colonic wall thickening beginning at the distal transverse colon and extending distally through the sigmoid colon with minimal pericolonic fat stranding within the left lower quadrant. No bowel obstruction. Colonic diverticulosis without acute diverticulitis. Vasculature: Abdominal aorta is normal in caliber. Mesenteric arteries are patent. Lymph nodes: No lymphadenopathy. Peritoneum/Abdominal Wall: No ascites or pneumoperitoneum. Pelvis: Mild bladder wall thickening. No suspicious adnexal mass. Bones: No acute osseous abnormality. IMPRESSION: 1. Prominent colonic wall thickening throughout the left hemicolon likely indicative of infectious/inflammatory colitis. 2. Mild bladder wall thickening. Correlate for cystitis. 3. Colonic diverticulosis. 4. Unchanged indeterminate small bilateral adrenal nodules, as above. Further characterization with outpatient adrenal protocol CT/MR recommended if not previously performed. Urinalysis would not suggest cystitis. Did discuss findings of CT imaging with Lizeth Jas. Given copies of imaging and over-read Finally 2 tabs of oxycodone with repeat pain as needed to know whether not would be able to manage at home. Improved. See patient discharge plan for further discussion Please follow-up with [facility] as scheduled. Focus on staying hydrated at this point. Might want to go with a personnel manager diet. Percocet from [facility] and prescription for hyoscyamine for cramping will be sent to your pharmacy. Return/be seen sooner for marked increase seen persistent abdominal pain, increasing fever, intractable diarrhea. Lab Data Lab results reviewed: Yes I reviewed the patient's lab results Labs: Lab Results 01/19/24 01/19/24 Range/Units 20:47 23:00 WBC 7.79 (4.50-11.00) K/uL RBC 5.33 H (4.00-5.20) m/uL Hgb 15.7 (12.0-16.0) gm/dL Hct 48.7 (33.0-51.0) % MCV 91 (80-100) fL MCH 30 (26-34) pg MCHC 32 (32-36) gm/dL RDW Coeff of Marsha 13.9 (11.5-15.5) % Plt Count 184 (140-440) K/uL Neut % (Auto) 64.2 (42.0-72.0) % Lymph % (Auto) 25.8 (20-44) % [place] % (Auto) 6.8 (0.0-11.0) % Eos % (Auto) 2.8 (0.0-7.0) % Baso % (Auto) 0.3 (0.0-3.0) % Neut # (Auto) 5.00 (1.7-7.0) K/uL Lymph # (Auto) 2.01 (0.90-2.90) K/uL [place] # (Auto) 0.50 (0.00-0.90) K/UL Eos # (Auto) 0.22 (0.00-0.50) K/uL Baso # (Auto) 0.02 (0.00-0.30) K/uL Abs Immat Gran (auto) 0.01 (0.00-0.30) K/uL Imm/Tot Granulo (auto) 0.1 % Sodium 138 (135-149) mmol/L Potassium 4.6 (3.6-5.1) mmol/L Chloride 106 (96-114) mmol/L Carbon Dioxide 27 (20-32) mmol/L Anion Gap 5 L (7-15) mEq/L BUN 12 (5-24) mg/dL Creatinine 1.0 (0.5-1.5) mg/dL Estimated Creat Clear 53.04 Estimated GFR 70 ml/min Glucose 94 (60-115) mg/dL Calcium 8.8 (8.4-10.6) mg/dL C-Reactive Protein 0.6 (0.5-1.0) mg/dL Urine Color Yellow (Yellow) Urine Appearance Clear (Clear) Urine pH 6.0 (5.0-8.5) Ur Specific [place] 1.010 (1.000-1.030) Urine Protein Negative (Negative) Urine Glucose (UA) Negative (Negative) Urine Ketones Negative (Negative) Urine Blood Negative (Negative) Urine Nitrite Negative (Negative) Urine Bilirubin Negative (Negative) Urine Urobilinogen 0.2 (0.2-1.0) Ur Leukocyte Esterase Negative (Negative) Urine RBC 0-2 (0-2) Urine WBC 0-2 (0-5) Ur Squamous Epith Cells Few (None-Few) Urine Bacteria None (None) Discharge Plan Discharge Clinical Impression: Colitis, Abdominal pain, Colonic stricture Patient Disposition: Home w/ Parent or Adult Condition: Improved Instructions: Abdominal Pain (ED), Colitis (ED), Colon Stricture (DC) Additional Instructions: Please follow-up with [facility] as scheduled. Focus on staying hydrated at this point. Might want to go with a personnel manager diet. Percocet from [facility] and prescription for hyoscyamine for cramping will be sent to your pharmacy. Return/be seen sooner for marked increase seen persistent abdominal pain, increasing fever, intractable diarrhea. Prescriptions: New hyoscyamine sulfate 0.125 mg tablet 0.25 mg PO QID PRN (Reason: Abdominal cramping) Qty: 20 0RF No Action methylprednisolone [Medrol (Vijay)] 4 mg tablets,dose pack See Rx Instructions PO PER PKG DIR Qty: 21 1RF Rx Instructions: PO PER PKG DIR diclofenac sodium [Arthritis Pain (diclofenac)] 1 % gel 2 g topical QID Qty: 100 0RF Rx Instructions: apply to single elbow, wrist or hand; for hand includes palm/fingers/back of hand budesonide-formoterol [Symbicort] 160-4.5 mcg/actuation HFA aerosol inhaler 2 puff inhalation BID fluticasone propionate 50 mcg/actuation spray,suspension 1 spray intranasal cetirizine [Allergy Relief (cetirizine)] 10 mg tablet PO PRN carvedilol 6.25 mg tablet 6.25 mg PO BID Qty: 180 3RF rosuvastatin 40 mg tablet 40 mg PO QDAY Qty: 90 1RF omeprazole 40 mg capsule,delayed release(DR/EC) 40 mg PO QPM Qty: 90 1RF ondansetron HCl 4 mg tablet 4 mg PO TID PRN (Reason: nausea and vomiting) Qty: 30 0RF montelukast [Singulair] 10 mg tablet 10 mg PO QDAY Qty: 90 1RF buspirone 7.5 mg tablet 7.5 mg PO DIRECTED Qty: 270 3RF Rx Instructions: 1 tablet in am and 2 at night famotidine 40 mg tablet 40 mg PO QAM PRN (Reason: heartburn) Qty: 90 1RF lorazepam 1 mg tablet 1 mg PO TID PRN (Reason: anxiety) Qty: 30 2RF spironolactone 25 mg tablet 62.5 mg PO DAILY Qty: 180 1RF levothyroxine [Synthroid] 100 mcg tablet 100 mcg PO QDAY Qty: 90 1RF albuterol sulfate 90 mcg/actuation HFA aerosol inhaler 2 puff inhalation Q6H PRN (Reason: shortness of breath or wheezing) Qty: 8.5 1RF albuterol sulfate 1.25 mg/3 mL solution for nebulization 1.25 mg inhalation QID PRN (Reason: bronchospasm) Qty: 90 1RF (DME) nebulizer and compressor Device See Rx Instructions .Route Qty: 1 0RF Rx Instructions: As directed (DME) blood-glucose meter [Blood Glucose Monitoring] Kit See Rx Instructions .ROUTE .MEDSUPPLY Qty: 1 0RF Rx Instructions: As directed (DME) Blood Glucose Test Strip See Rx Instructions .ROUTE .MEDSUPPLY Qty: 100 2RF Rx Instructions: bid (DME) lancets [Accu-Chek Softclix Lancets] Misc See Rx Instructions .Route Qty: 100 6RF Rx Instructions: bid (DME) Dexcom G7 Sensor Device See Rx Instructions .Route Qty: 6 4RF Rx Instructions: As directed (DME) blood-glucose transmitter Device See Rx Instructions .Route Qty: 1 0RF Rx Instructions: As directed aspirin [Adult Low Dose Aspirin] 81 mg tablet,delayed release (DR/EC) 81 mg PO QDAY Qty: 90 0RF Follow Up/Referrals: Fadi Quick MD [Primary Care Provider] - Stand Alone Forms: MyHealth Info Instructions
--- NOTE | 2024-01-19 20:34 | CRLHL7_ITS ---
For Patients: As a result of the Century Cures Act, medical imaging exams and procedure reports are released immediately into your electronic medical record. You may view this report before your referring provider. If you have questions, please contact your health care provider. INDICATION: Hematochezia, cramping, vomiting, diarrhea. TECHNIQUE: CT abdomen and pelvis acquired with 89 cc Omnipaque 370 IV contrast. COMPARISON: CT abdomen pelvis 06/14/2022. FINDINGS: Lower chest: Unremarkable. Liver: Unremarkable. Gallbladder and bile ducts: Unremarkable. No stones or inflammation. No biliary dilatation. Pancreas: Unremarkable. No mass or inflammation. Spleen: Unremarkable. Normal in size. No masses. Adrenal glands: Left adrenal nodule measuring 1.0 cm, similar to prior. Right adrenal nodule measuring 1.1 cm, similar to prior. Kidneys: Unremarkable. No suspicious masses, stones, or hydronephrosis. GI tract: Prominent colonic wall thickening beginning at the distal transverse colon and extending distally through the sigmoid colon with minimal pericolonic fat stranding within the left lower quadrant. No bowel obstruction. Colonic diverticulosis without acute diverticulitis. Vasculature: Abdominal aorta is normal in caliber. Mesenteric arteries are patent. Lymph nodes: No lymphadenopathy. Peritoneum/Abdominal Wall: No ascites or pneumoperitoneum. Pelvis: Mild bladder wall thickening. No suspicious adnexal mass. Bones: No acute osseous abnormality. IMPRESSION: 1. Prominent colonic wall thickening throughout the left hemicolon likely indicative of infectious/inflammatory colitis. 2. Mild bladder wall thickening. Correlate for cystitis. 3. Colonic diverticulosis. 4. Unchanged indeterminate small bilateral adrenal nodules, as above. Further characterization with outpatient adrenal protocol CT/MR recommended if not previously performed. Please note that all CT scans at this facility use dose modulation, iterative reconstruction, and/or weight-based dosing when appropriate to reduce radiation dose to as low as reasonably achievable. Dictated by Cristopher Castañeda MD @ 01/19/2024 9:59:57 PM (Electronically Signed)
[2024-01-19 21:01] LABS: Basophils Absolute Auto 0.02 K/uL (0.00-0.30); Basophils Percent Auto 0.3 % (0.0-3.0); Eosinophils Absolute Auto 0.22 K/uL (0.00-0.50); Eosinophils Percent Auto 2.8 % (0.0-7.0); Hematocrit 48.7 % (33.0-51.0); Hemoglobin* 15.7 gm/dL (12.0-16.0); Immature Granulocytes Abs Auto 0.01 K/uL (0.00-0.30); Immature Granulocytes Pct Auto 0.1 %; Lymphocytes Absolute Auto 2.01 K/uL (0.90-2.90); Lymphocytes Percent Auto 25.8 % (20-44); Mean Corpuscular HGB Conc 32 gm/dL (32-36); Mean Corpuscular Hemoglobin 30 pg (26-34); Mean Corpuscular Volume 91 fL (80-100); Monocytes Percent Auto 6.8 % (0.0-11.0); Neutrophils Percent Auto 64.2 % (42.0-72.0); Platelet Count* 184 K/uL (140-440); RDW Coefficient of Variation % 13.9 % (11.5-15.5); Red Blood Count 5.33 m/uL (4.00-5.20); White Blood Count* 7.79 K/uL (4.50-11.00)
[2024-01-19 21:05] LABS: Slide Review Reflex No
[2024-01-19] MEDS: 0.9 % SODIUM CHLORIDE 500 ML 500 ML 1000 ML IV (21:09)
[2024-01-19] MEDS: KETOROLAC 30 MG/ML inj IVP (21:11)
[2024-01-19] MEDS: HYDROmorphone 0.5 mg/0.5 ml inj IVP (21:13)
[2024-01-19 21:39] LABS: Chloride* 106 mmol/L (96-114); Potassium* 4.6 mmol/L (3.6-5.1); Sodium* 138 mmol/L (135-149)
[2024-01-19 21:42] LABS: Est. Creatinine Clearance* 53.04; Estimated Glomerular Filt Rate 70 ml/min
[2024-01-19 21:43] LABS: Anion Gap 5 mEq/L (7-15); Blood Urea Nitrogen* 12 mg/dL (5-24); Calcium* 8.8 mg/dL (8.4-10.6); Carbon Dioxide* 27 mmol/L (20-32); Glucose* 94 mg/dL (60-115)
--- OUTSIDE RECORDS SUMMARY | 2024-01-19 21:44 | XMS_ITS | Encounter Summary ---
Author Organization [facility] Address [address] [place] [address] Care Team Providers Care Certified Court Interpreter Name Role Phone Fadi Quick MD Primary Care Provider [phone] Encounter Details Date Type Department Care Team [...] as of this encounter Progress Notes * [facility], PROVIDER - 04/13/2012 12:00 AM CST R BENDER OPERATOR documented in this encounter Plan of Treatment Upcoming Encounters Date Type Department Care Team (Late Contact Info) Description 01/20/2024 1:20 PM POWER BENDER OPERATOR Appointment [facility] [place] [id number] [place] [address] [phone] Elisha Loyola, OD [address] [place] [address] Eye Exam documented as of this encounter Visit Diagnoses [...] documented as of this encounter Care Teams Certified Court Interpreter Relationship Specialty Start Date End Date Fadi Quick MD [address] [place] [address] PCP - General Family Practice 06/06/20 documented as of this encounter
--- OUTSIDE RECORDS SUMMARY | 2024-01-19 21:44 | XMS_ITS | Encounter Summary ---
Author [facility] Address [address] [place] [address] Care Team Providers Care Sidehand Name Role Phone Fadi Quick MD Primary Care Provider [phone] Encounter Details Date Type Department Care Team [...] as of this encounter Progress Notes * [facility], PROVIDER - 04/13/2012 12:00 AM CST documented in this encounter Plan of Treatment Upcoming Encounters Date Type Department Care Team (Late Contact Info) Description 01/20/2024 1:20 PM FASHION CONSULTANT [facility]ment [facility] [place] [id number] [place] [phone] Elisha Loyola, OD [address] [place] [address] Eye Exam documented as of this encounter [...] documented as of this encounter Care Teams Sidehand Relationship Specialty Start Date End Date Fadi Quick MD [address] [place] [address] PCP - General Family Practice 06/06/20 documented as of this encounter
--- OUTSIDE RECORDS SUMMARY | 2024-01-19 21:44 | XMS_ITS | Encounter Summary ---
Author Organization [facility] Address [address] [place] [address] Care Team Providers Care Investigative Agent Name Role Phone Fadi Quick MD Primary Care Provider [phone] Encounter Details Date Type Department Care Team [...] as of this encounter Progress Notes * [facility], PROVIDER - 04/13/2012 12:00 AM CST documented in this encounter Plan of Treatment Upcoming Encounters Date Type Department Care Team (Late Contact Info) Description 01/20/2024 1:20 PM TAX INTERN Appointment [facility] [place] [address] [place] [address] [phone] Elisha Loyola, OD [address] [place] [address] Eye Exam documented as of this encounter [...] documented as of this encounter Care Teams Investigative Agent Relationship Specialty Start Date End Date Fadi Quick MD [address] [place] [address] PCP - General Family Practice 06/06/20 documented as of this encounter
--- OUTSIDE RECORDS SUMMARY | 2024-01-19 21:44 | XMS_ITS | Clinical Summary ---
Author Organization [facility] Address [place], [place] [address] Care Team Providers Care It Integration Architect Name Role Phone Fadi Quick MD Primary Care Provider [phone] Allergies No known active allergies Medications ketoconazole 2% topical (NIZORAL) creamIndications :Tinea corporis Apply topically to affected area(s) 2 times daily. 1 Tube 0 6 Active azithromycin (ZITHROMAX Z-RANDAL) 250 mg tabletIndication s:Pharyngitis, unspecified etiology,Bronchi tis Take 500 mg (2 tabs) by mouth on day 1, then 250 mg (1 tab) daily for days 2-5. 6 tablet 0 6 Active albuterol HFA 90 mcg/actuation inhalerIndicatio ns:Bronchitis Inhale 2 Puffs by mouth every 6 hours if needed. 1 Inhaler 0 6 Active meclizine (ANTIVERT) 25 mg tabletIndication s:Dizziness Take 1 tablet by mouth 3 times daily if needed for Other (Specify) (dizziness). 20 tablet 7 Active hydrOXYzine HCl (ATARAX) 25 mg tabletIndication s:Dermatitis Take 1-2 tablets by mouth every 6 hours if needed for Itching. 20 tablet 9 Active metoprolol tartrate (LOPRESSOR) 50 mg tablet Take 50 mg by mouth once daily. Active rosuvastatin calcium (ROSUVASTATIN ORAL) Take 20 mg by mouth once daily. Active LOSARTAN-HYDROCH LOROTHIAZIDE ORAL Take by mouth once daily. Active [...] by mouth two times daily. Active fluticasone propion-salmeter oL (Advair Diskus) 500-50 mcg/Dose diskus inhaler Inhale [...] once daily. Active benzonatate (TESSALON) 100 mg capsuleIndicatio ns:Intermittent asthma with acute exacerbation, unspecified asthma severity Take 1 Capsule (100 mg) by mouth 3 times daily if needed for Cough. 10 Capsule Active Active Problems Problem Noted Date Diagnosed [...] Paying Living Expenses Not on file 2021 Comments Unknown Sex and Gender Information Value Date Recorded Sex Assigned at Not on file Legal Sex Female 5:54 AM CLINICAL NURSE MANAGER Gender Identity Not on file Sexual Orientation [...] for age 45-75 2022 COVID-19 vaccine series (2023-25 season) 2023 Influenza for age 9-49 10/13/2023 Pneumococcal series for age 6-64 Aged Out No longer eligible b ased on patient's age to complete this topic Insurance [facility] * Guarantor: MELODY HOYTREEN Account Type Relation to Patient Date of Phone Billing Address [facility] [address] [place] [id number] ATTN A/P [address] [address] [place] [address] Advance Directives * Full Code (Latest Code Status on File) Date Activated Date Inactivated Comments 06/30/2022 12:17 AM 06/30/2022 3:44 AM Question Answer Comments Code Status Discussion: Reviewed Preferences Care Teams It Integration Architect Relationship Specialty Start Date End Date Fadi Quick MD [address] [place] [address] PCP - General Family Practice 04/07/20
--- OUTSIDE RECORDS SUMMARY | 2024-01-19 21:44 | XMS_ITS | Encounter Summary ---
Author Organization [facility] Address [address], [place] [address] Care Team Providers Care Adobe Cq Developer Name Role Phone Fadi Quick MD Primary Care Provider [phone] Encounter Details Date Type Department Care Team (Late Contact Info) Description 06/09/2017 Flowsheet [facility] [address] [place] [address] Provider, Not On File [address] [place] [address] HH CONTRAST INJECTION ASSESSMENT Social History Tobacco [...] Upcoming Encounters Date Type Department Care Team ([facility] Contact Info) Description 01/20/2024 1:20 PM SAFETY DEPOSIT BOXES CUSTODIAN Appointment [facility] [place] [address] [place] [address] Elisha Loyola, OD [address] [place] [address] Eye Exam documented as of this encounter [...] documented as of this encounter Care Teams Adobe Cq Developer Relationship Specialty Start Date End Date Fadi Quick MD [address] [place] [address] PCP - General Family Practice 06/06/20 documented as of this encounter
--- OUTSIDE RECORDS SUMMARY | 2024-01-19 21:44 | XMS_ITS | Encounter Summary ---
Author Organization [facility], 1928–1983 Address [address] [place] [address] Care Team Providers Care Experimental Rocket Sled Mechanic Name Role Phone Fadi Quick MD Primary Care Provider [phone] Encounter Details Date Type Department Care Team (Late Contact Info) Description 04/11/2012 Emergency Room External to [facility], Provider ACUTE MYOCARDIAL INFARCTIONS OF INFEROLATERAL [...] as of this encounter Progress Notes * [facility], Provider - 04/11/2012 12:00 AM CST documented in this encounter Plan of Treatment Upcoming Encounters Date Type Department Care Team (Late Contact Info) Description 01/20/2024 1:20 PM BRANCH MANAGER TRAINEE Appointment [facility] [place] [address] [place] [phone] Elisha Loyola, OD [address] [place] [address] Eye Exam documented as of this encounter [...] documented as of this encounter Care Teams Experimental Rocket Sled Mechanic Relationship Specialty Start Date End Date Fadi Quick MD [address] [place] [address] PCP - General Family Practice 06/06/20 documented as of this encounter
--- OUTSIDE RECORDS SUMMARY | 2024-01-19 21:44 | XMS_ITS | Encounter Summary ---
[facility] Organization [facility] Address [address] [place] [address] Care Team Providers Care Junior Marketing Associate Name Role Phone Fadi Quick MD Primary Care Provider [phone] Encounter Details Date Type Department Care Team [...] as of this encounter Progress Notes * [facility], PROVIDER - 04/13/2012 12:00 AM CST documented in this encounter Plan of Treatment Upcoming Encounters Date Type Department Care Team (Late Contact Info) Description 01/20/2024 1:20 PM EDGE BURNISHER Appointment [facility] [place] [id number] [place] [phone] Elisha Loyola, OD [address] [place] [address] Eye Exam documented as of this encounter [...] documented as of this encounter Care Teams Junior Marketing Associate Relationship Specialty Start Date End Date Fadi Quick MD [address] [place] [address] PCP - General Family Practice 06/06/20 documented as of this encounter
--- OUTSIDE RECORDS SUMMARY | 2024-01-19 21:44 | XMS_ITS | Encounter Summary ---
Author Organization [facility] Address [address] [place] [address] Care Team Providers Care Smooth Plater Name Role Phone Fadi Quick MD Primary Care Provider [phone] Encounter Details Date Type Department Care Team [...] of this encounter Progress Notes * [facility], PROVIDER - 04/13/2012 12:00 AM CST MACHINE OPERATOR documented in this encounter Plan of Treatment Upcoming Encounters Date Type Department Care Team (Late Contact Info) Description 01/20/2024 1:20 PM BUN MACHINE OPERATOR Appointment [place] [facility] [place] [id number] [place] [phone] Elisha Loyola, OD [address] [place] [address] Eye Exam documented as of this encounter [...] documented as of this encounter Care Teams Smooth Plater Relationship Specialty Start Date End Date Fadi Quick MD [address] [place] [address] PCP - General Family Practice 06/06/20 documented as of this encounter
--- OUTSIDE RECORDS SUMMARY | 2024-01-19 21:44 | XMS_ITS | Referral Summary ---
Author Organization [facility] Address [address] [place] [address] Care Team Providers Care Salesperson Hearing Aids Name Role Phone Fadi Quick MD Primary Care Provider [phone] Allergies No known active allergies Medications lubiprostone [...] mouth daily Active neomycin-polymy abimbola-hydrocortis one (CORTISPORIN) 3.5-60910-[address] 3 drops into the [...] Comments Blood Pressure 127/88 01/23/2023 11:30 PM TRANSITIONAL CARE LIAISON Pulse 69 01/23/2023 11:30 PM TRANSITIONAL CARE LIAISON Temperature 36.6 C (97.8 F) 01/23/2023 9:05 PM TRANSITIONAL CARE LIAISON Respiratory Rate 16 01/23/2023 9:05 PM TRANSITIONAL CARE LIAISON Oxygen Saturation 97% 01/23/2023 11:30 PM TRANSITIONAL CARE LIAISON Inhaled Oxygen Concentration - - Weight 83.9 kg (185 lb) 01/23/2023 9:05 PM TRANSITIONAL CARE LIAISON Height 157.5 cm (5' 2) 01/23/2023 9:05 PM TRANSITIONAL CARE LIAISON Body Mass Index 33.84 01/23/2023 9:05 PM TRANSITIONAL CARE LIAISON Plan of Treatment Upcoming Encounters Date Type Department Care Team (Late st Contact Info) Description 05/04/2106 Records - [facility] CONVERSION Provider, Historical Procedures Procedure Name Priority Date/Time Associated Diagnosis Comments COMPREHENSIVE METABOLIC PANEL STAT 01/23/2023 9:22 PM TRANSITIONAL CARE LIAISON LIPID PROFILE Routine 06/10/2017 3:35 AM CDT HPV HIGH RISK TYPES DNA CERVICAL Routine 06/18/2014 2:00 PM CDT ABSTRACT PAP (HIM EXTERNAL RESULT) Routine 06/18/2014 from Last 3 Months or Most Recently Relevant to Health Maintenance Results * (ABNORMAL) Comprehensive metabolic panel (01/23/2023 9:22 PM TRANSITIONAL CARE LIAISON) Sodium 139 135 - 145 mmol/L 01/23/2023 9:48 PM TRANSITIONAL CARE LIAISON [facility] Comment:Reference intervals for this test were updated on 11/06/2022 to more accurately reflect our healthy population. There may be differences in the flagging of prior results with similar values performed with this method. Interpretation of those prior results can be made in the context of the updated reference intervals. Potassium 4.2 3.4 - 5.3 mmol/L 01/23/2023 9:48 PM [facility]AL CARE L[facility] Carbon Dioxide (CO2) 29 22 - 29 mmol/L 01/23/2023 9:48 PM [facility] C[facility] Anion Gap 9 7 - 15 mmol/L 01/23/2023 9:48 PM [facility] Urea Nitrogen 9.6 6.0 - 20.0 mg/dL 01/23/2023 9:48 PM [facility] Creatinine 1.25(H) 0.51 - 0.95 mg/dL 01/23/2023 9:48 PM TRANS[facility]AL CARE LIA[facility] GFR Estimate 54(L) >60 mL/min/1. 73m2 01/23/2023 9:48 PM [facility] Calcium 9.9 8.6 - 10.0 mg/dL 01/23/2023 9:48 PM [facility]AL CARE LIA[facility] Chloride 101 98 - 107 mmol/L 01/23/2023 9:48 PM [facility]AL CARE LIA[facility] Glucose 120(H) 70 - 99 mg/dL 01/23/2023 9:48 PM [facility]AL CARE LIA[facility] Alkaline Phosphatase 122 40 - 150 U/L 01/23/2023 9:48 PM [facility] LIA[facility] Comment:Reference intervals for this test were updated on 12/25/2022 to more accurately reflect our healthy population. There may be differences in the flagging of prior results with similar values performed with this method. Interpretation of those prior results can be made in the context of the updated reference intervals. AST 22 0 - 45 U/L 01/23/2023 9:48 PM TRANS[facility]AL CARE LIAISON [facility] Comment:Reference intervals for this test were updated on 07/23/2022 to more accurately reflect our healthy population. There may be differences in the flagging of prior results with similar values performed with this method. Interpretation of those prior results can be made in the context of the updated reference intervals. ALT 22 0 - 50 U/L 01/23/2023 9:48 PM TRANSITIONAL CARE LIAISON [facility] Comment:Reference intervals for this test were updated on 07/23/2022 to more accurately reflect our healthy population. There may be differences in the flagging of prior results with similar values performed with this method. Interpretation of those prior results can be made in the context of the updated reference intervals. Protein Total 7.3 6.4 - 8.3 g/dL 01/23/2023 9:48 PM [facility] Albumin 4.6 3.5 - 5.2 g/dL 01/23/2023 9:48 PM [facility] Bilirubin Total 0.4 <=1.2 mg/dL 01/23/2023 9:48 PM [facility] Blood STRUCTURE OF LEFT UPPER LIMB / Unknown Venipuncture / Unknown 01/23/2023 9:22 PM TRANSITIONAL CARE LIAISON 01/23/2023 9:27 PM TRANSITIONAL CARE LIAISON Lucila White MD LAB - BLOOD ORDERABLES F inal Result LABORATORY [facility] [address] [facility] Lab (1st floor, no room number) [place] [address], [facility] [phone] * (ABNORMAL) Lipid Profile (06/10/2017 3:35 AM CDT) [facility] Triglycerides 145 <=149 mg/dL 06/10/2017 4:01 AM CDT [facility] Cholesterol 200(H) <=199 mg/dL 06/10/2017 4:01 AM CDT [facility] LDL Cholesterol Calculated 137(H) <=129 mg/dL 06/10/2017 4:01 AM CDT [facility] Direct Measure HDL 34(L) >=50 mg/dL 06/10/2017 4:01 AM CDT [facility] Blood specimen (specimen) Venipuncture / Unknown 06/10/2017 3:35 AM CDT 06/10/2017 3:40 AM CDT Hussein Jackson MD LAB - BLOOD ORDERABLES Final Re sult [facility] [address] [place] [address], [facility] [address] [place] [address] * (ABNORMAL) HPV High Risk Types DNA Cervical (06/18/2014 2:00 PM CDT) Interpretation High Risk HPV Type(s) Detected(A) No HPV Type(s) Detected, No High Risk HPV Type(s) Detected, DNA Quantity Not Sufficient 06/25/2014 11:41 AM CDT [facility] Financial Services Manager Donato Jauregui MD, [employer] 06/25/2014 11:41 AM CDT [facility] Comment: Testing was performed at [facility], [address] [place] [address], [facility], with final [...] this laboratory-developed test (LDT) were determined by [facility] pursuant to Clinical Laboratory Improvement Amendments (CLIA 88) requirements. It has not been cleared or approved by the U.S. Food and Drug Administration (FDA). The FDA has determined that such clearance or approval is not a requirement prior to use for clinical purposes. Cheyenne Choudhury MD LAB - BLOOD ORDERABLES Suma gan Result [facility] [address] [place] [address], [facility] [address] [place] [address] * (ABNORMAL) ABSTRACT PAP-NO CHARGE (06/18/2014) PAP-ABSTRACT See Scanned Document(A) [facility]) 06/18/2014 Narrative [facility]) - 06/18/2014 PAP [facility] us Provider Outside LAB - HIM EXTERNAL RESULT Final Result [facility] [address] [place] [address], [facility] from Last 3 Months or Most Recently Relevant to Health Maintenance Insurance [facility] [id number] [address] [facility] Advance Directives For more information, please contact: [phone] * Full Code (Latest Code Status on File) Date Activated Date Inactivated Comments 02/13/2018 4:23 PM 09/26/2018 11:40 PM Question Answer Comments Code status determined by: Discussion with patie nt/legal decision maker * Full Code Date Activated Date Inactivated Comments 02/13/2018 6:34 AM 02/13/2018 4:23 PM Question Answer Comments Code status determined by: Discussion with patie nt/legal decision maker Care Teams Salesperson Hearing Aids Relationship Specialty Start Date End Date Fadi Quick MD PCP - General Family Medicine 05/20/20
--- OUTSIDE RECORDS SUMMARY | 2024-01-19 21:44 | XMS_ITS | Clinical Summary ---
Author Organization [place] Address [address] [place] [address] Care Team Providers Care Supervisor Volunteer Services Name Role Phone Fadi Quick MD Primary Care Provider [phone] Allergies No known active allergies Medications lubiprostone [...] mouth daily Active neomycin-polymy abimbola-hydrocortis one (CORTISPORIN) 3.5-19236-[address] 3 drops into the [...] Comments Blood Pressure 127/88 01/23/2023 11:30 PM EXTRACORPOREAL TECHNICIAN Pulse 69 01/23/2023 11:30 PM EXTRACORPOREAL TECHNICIAN Temperature 36.6 C (97.8 F) 01/23/2023 9:05 PM EXTRACORPOREAL TECHNICIAN Respiratory Rate 16 01/23/2023 9:05 PM EXTRACORPOREAL TECHNICIAN Oxygen Saturation 97% 01/23/2023 11:30 PM EXTRACORPOREAL TECHNICIAN Inhaled Oxygen Concentration - - Weight 83.9 kg (185 lb) 01/23/2023 9:05 PM EXTRACORPOREAL TECHNICIAN Height 157.5 cm (5' 2) 01/23/2023 9:05 PM EXTRACORPOREAL TECHNICIAN Body Mass Index 33.84 01/23/2023 9:05 PM EXTRACORPOREAL TECHNICIAN Plan of Treatment Upcoming Encounters Date Type [...] COMPREHENSIVE METABOLIC PANEL STAT 01/23/2023 9:22 PM EXTRACORPOREAL TECHNICIAN LIPID PROFILE Routine 06/10/2017 3:35 AM CDT HPV HIGH RISK TYPES DNA CERVICAL Routine 06/18/2014 2:00 PM CDT ABSTRACT PAP (HIM EXTERNAL RESULT) Routine 06/18/2014 from Last 3 Months or Most Recently Relevant to Health Maintenance Results * (ABNORMAL) Comprehensive metabolic panel (01/23/2023 9:22 PM EXTRACORPOREAL TECHNICIAN) Sodium 139 135 - 145 mmol/L 01/23/2023 9:48 PM EXTRACORPOREAL TECHNICIAN [facility] Comment:Reference intervals for this test were updated on 11/06/2022 to more accurately reflect our healthy population. There may be differences in the flagging of prior results with similar values performed with this method. Interpretation of those prior results can be made in the context of the updated reference intervals. Potassium 4.2 3.4 - 5.3 mmol/L 01/23/2023 9:48 PM EXTRACORPOREAL TECHNICIAN [facility] Carbon Dioxide (CO2) 29 22 - 29 mmol/L 01/23/2023 9:48 PM EXTRACORPOREAL TECHNICIAN [facility] Anion Gap 9 7 - 15 mmol/L 01/23/2023 9:48 PM EXTRACORPOREAL TECHNICIAN [facility] Urea Nitrogen 9.6 6.0 - 20.0 mg/dL 01/23/2023 9:48 PM EXTRACORPOREAL TECHNICIAN [facility] Creatinine 1.25(H) 0.51 - 0.95 mg/dL 01/23/2023 9:48 PM EXTRACORPOREAL TECHNICIAN [facility] GFR Estimate 54(L) >60 mL/min/1. 73m2 01/23/2023 9:48 PM EXTRACORPOREAL TECHNICIAN [facility] Calcium 9.9 8.6 - 10.0 mg/dL 01/23/2023 9:48 PM EXTRACORPOREAL TECHNICIAN [facility] Chloride 101 98 - 107 mmol/L 01/23/2023 9:48 PM EXTRACORPOREAL TECHNICIAN [facility] Glucose 120(H) 70 - 99 mg/dL 01/23/2023 9:48 PM EXTRACORPOREAL TECHNICIAN [facility] Alkaline Phosphatase 122 40 - 150 U/L 01/23/2023 9:48 PM EXTRACORPOREAL TECHNICIAN [facility] Comment:Reference intervals for this test were updated on 12/25/2022 to more accurately reflect our healthy population. There may be differences in the flagging of prior results with similar values performed with this method. Interpretation of those prior results can be made in the context of the updated reference intervals. AST 22 0 - 45 U/L 01/23/2023 9:48 PM EXTRACORPOREAL TECHNICIAN [facility] Comment:Reference intervals for this test were updated on 07/23/2022 to more accurately reflect our healthy population. There may be differences in the flagging of prior results with similar values performed with this method. Interpretation of those prior results can be made in the context of the updated reference intervals. ALT 22 0 - 50 U/L 01/23/2023 9:48 PM EXTRACORPOREAL TECHNICIAN [facility] Comment:Reference intervals for this test were updated on 07/23/2022 to more accurately reflect our healthy population. There may be differences in the flagging of prior results with similar values performed with this method. Interpretation of those prior results can be made in the context of the updated reference intervals. Protein Total 7.3 6.4 - 8.3 g/dL 01/23/2023 9:48 PM EXTRACORPOREAL TECHNICIAN [facility] Albumin 4.6 3.5 - 5.2 g/dL 01/23/2023 9:48 PM EXTRACORPOREAL TECHNICIAN [facility] Bilirubin Total 0.4 <=1.2 mg/dL 01/23/2023 9:48 PM EXTRACORPOREAL TECHNICIAN [facility] Blood STRUCTURE OF LEFT UPPER LIMB / Unknown Venipuncture / Unknown 01/23/2023 9:22 PM EXTRACORPOREAL TECHNICIAN 01/23/2023 9:27 PM EXTRACORPOREAL TECHNICIAN Lucila White MD LAB - BLOOD ORDERABLES F inal Result LABORATORY [facility] Lab [address] Lab (1st floor, no room number) [place] [address], [facility] [phone] * (ABNORMAL) Lipid Profile (06/10/2017 3:35 AM CDT) Triglycerides 145 <=149 mg/dL 06/10/2017 4:01 AM CDT [facility] Cholesterol 200(H) <=199 mg/dL 06/10/2017 4:01 AM CDT [facility] LDL Cholesterol Calculated 137(H) <=129 mg/dL 06/10/2017 4:01 AM CDT [facility] Direct Measure HDL 34(L) >=50 mg/dL 06/10/2017 4:01 AM CDT [facility] Blood specimen (specimen) Venipuncture / Unknown 06/10/2017 3:35 AM CDT 06/10/2017 3:40 AM CDT Hussein Jackson MD LAB - BLOOD ORDERABLES Final Re sult [facility] [address] [place] [address], [facility] [address] [place] [address] * (ABNORMAL) HPV High Risk Types DNA Cervical (06/18/2014 2:00 PM CDT) Interpretation High Risk HPV Type(s) Detected(A) No HPV Type(s) Detected, No High Risk HPV Type(s) Detected, DNA Quantity Not Sufficient 06/25/2014 11:41 AM CDT [facility] Reference Archivist Donato Jauregui MD, [employer] 06/25/2014 11:41 AM CDT [facility] Comment: Testing was performed at [facility], [address] [place] [address], [facility], with final verification at the indicated [...] this laboratory-developed test (LDT) were determined by [facility] pursuant to Clinical Laboratory Improvement Amendments (CLIA 88) requirements. It has not been cleared or approved by the U.S. Food and Drug Administration (FDA). The FDA has determined that such clearance or approval is not a requirement prior to use for clinical purposes. Cheyenne Choudhury MD LAB - BLOOD ORDERABLES Suma gan Result [facility] [address] [place] [address], [facility] [address] [place] [address] * (ABNORMAL) ABSTRACT PAP-NO CHARGE (06/18/2014) PAP-ABSTRACT See Scanned Document(A) [facility]) 06/18/2014 Narrative [facility]) - 06/18/2014 PAP [facility] us Provider Outside LAB - HIM EXTERNAL RESULT Final Result [facility] [address] [place] [address], [facility] from Last 3 Months or Most Recently Relevant to Health Maintenance Insurance [facility] [id number] [address] [facility] Advance Directives For more information, please contact: [phone] * Full Code (Latest Code Status on File) Date Activated Date Inactivated Comments 02/13/2018 4:23 PM 09/26/2018 11:40 PM Question Answer Comments Code status determined by: Discussion with patie nt/legal decision maker * Full Code Date Activated Date Inactivated Comments 02/13/2018 6:34 AM 02/13/2018 4:23 PM Question Answer Comments Code status determined by: Discussion with patie nt/legal decision maker Care Teams Supervisor Volunteer Services Relationship Specialty Start Date End Date Fadi Quick MD PCP - General Family Medicine 05/20/20
--- OUTSIDE RECORDS SUMMARY | 2024-01-19 21:44 | XMS_ITS | Encounter Summary ---
Author Organization [facility] Address [address] [place] [address] Care Team Providers Care Optometrist Owner Name Role Phone Fadi Quick MD Primary Care Provider [phone] Encounter Details Date Type Department Care Team [...] of this encounter Progress Notes * [facility], PROVIDER - 04/11/2012 12:00 AM CST RVISOR PIG MACHINE documented in this encounter Plan of Treatment Upcoming Encounters Date Type Department Care Team (Late Contact Info) Description 01/20/2024 1:20 PM SUPERVISOR PIG MACHINE Appointment [facility] [place] [id number] [place] [phone] Elisha Loyola, OD [address] [place] [address] Eye Exam documented as of this encounter [...] documented as of this encounter Care Teams Optometrist Owner Relationship Specialty Start Date End Date Fadi Quick MD [address] [place] [address] PCP - General Family Practice 06/06/20 documented as of this encounter
--- OUTSIDE RECORDS SUMMARY | 2024-01-19 21:44 | XMS_ITS | Encounter Summary ---
Author Organization [facility] Address [address], [place] [address] Care Team Providers Care Bar Porter Name Role Phone Fadi Quick MD Primary [...] (Late Contact Info) Description 01/20/2024 1:20 PM MATTRESS PACKER Appointment [facility] [place] [address] [place] [phone] Elisha Loyola, OD [address] [place] [address] Eye Exam documented as of this encounter [...] documented as of this encounter Care Teams Bar Porter Relationship Specialty Start Date End Date Fadi Quick MD [address] [place] [address] PCP - General Family Practice 06/06/20 documented as of this encounter
--- OUTSIDE RECORDS SUMMARY | 2024-01-19 21:44 | XMS_ITS ---
Author Organization [facility] Address [address] [address] Care Team Providers Care Pipe Organ Installer Name Role Phone Fadi Quick MD Primary Care Provider [phone] Active Problems Problem Noted Date Diagnosed Date [...] (05/10/2023): Added automatically from request for surgery [id number] [facility] Review: History: 06/2014: ASCUS, HPV+ 06/2020: Vagina and cervix, biopsy- Invasive squamous cell carcinoma, moderately differentiated. Treatment: chemoradiation and vaginal brachytherapy 03/2021: LSIL, HPV+ Other 03/2022: ASC-H HPV+ Other / no colposcopy 03/2023: LSIL HPV neg Plan, per Kristin Sands PA-C: Continue routine surveillance with welder repair onc Abnormal vaginal bleeding 06/17/2020 Acute blood [...] (hyperlipidemia) 06/03/2020 Coronary artery disease invo lving [place] coronary artery of [place] heart without angina pectoris 07/16/2017 Overview (07/16/2017): NSTEMI and 06/09/17. ECHO June 2017: EF 54%, hypokinetic basal inferolateral, basal anterolateral, mid inferolateral and mid anterolateral On Plavix until May 2018. 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 Past Plans Medications Plan Name Start Date Discontinue Date Treatment Medications Discontinue Reason Plan Provider HYDRATION THERAPY (FLUIDS) 07/21/2020 06/11/2022 alteplase (CATHFLO ACTIVASE)heparinhe mehdi PF (Pork)magnesium sulfatesodium chloride 0.9 %sodium chloride 0.9% Therapy Complete Benita Sanderson, CONCESSION SUPERVISOR, SWING TYPE LATHE OPERATOR ONCOLOGY TREATMENT Plan Name Start Date Discontinue [...] treatments are documented for this patient in [facility]. Treatments may have been administered in another system. Resolved Problems Problem Noted Date Diagnosed Date Resolved Date Chest pain 06/09/2017 07/16/2017
--- OUTSIDE RECORDS SUMMARY | 2024-01-19 21:44 | XMS_ITS | Clinical Summary ---
Author Organization [facility] Address [address] [place] [address] Care Team Providers Care Quality Control Director Name Role Phone Fadi Quick MD Primary Care Provider [phone] Source Comments You are receiving this document as you are listed as the primary care provider,follow-up provider, or the patient has been referred to you for consultation.This is in compliance with the Medicare and[facility] Hospitalca[facility] EHR Incentive Program,which states Providers who transition their patient to another setting of careor provider of care or refers their patient to another provider of care shouldprovide summary care record for each transition of care or referral. [facility] Allergies Active Allergy Reactions Criticality Noted Date [...] (05/10/2023): Added automatically from request for surgery [id number] [facility] Review: History: 06/2014: ASCUS, HPV+ 06/2020: Vagina and cervix, biopsy- Invasive squamous cell carcinoma, moderately differentiated. Treatment: chemoradiation and vaginal brachytherapy 03/2021: LSIL, HPV+ Other 03/2022: ASC-H HPV+ Other / no colposcopy 03/2023: LSIL HPV neg Plan, per Kristin Sands PA-C: Continue routine surveillance with slag dumper onc Abnormal vaginal bleeding 06/17/2020 Acute blood [...] (hyperlipidemia) 06/03/2020 Coronary artery disease invo lving [place] coronary artery of [place] heart without angina pectoris 07/16/2017 Overview (07/16/2017): NSTEMI and 06/09/17. ECHO June 2017: EF 54%, hypokinetic basal inferolateral, basal anterolateral, mid inferolateral and mid anterolateral On Plavix until May 2018. 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 07/16/2017 Other insomnia 07/16/2017 H/O non-ST elevation myocardial infarction (NSTE SC) 07/16/2017 HTN (hypertension) HLD (hyperlipidemia) Tobacco abuse [...] st Contact Info) Description 01/20/2024 1:20 PM IDEA WORKER Appointment [facility] [place] [address] [place] [address] Elisha Loyola OD [address] [place] [address] Eye Exam Health Maintenance Due Date Last Done Comments [...] Comments PAP TEST Routine 04/11/2023 2:16 PM IDEA WORKER Squamous cell carcinoma of cervix (HRC) HIV 1/2 AG/AB 4TH GEN Routine 09/05/2020 11:15 AM CDT Screen for STD (sexually transmitted disease) LIPID PANEL & DIRECT LDL (IF NEEDED) Routine 08/27/2020 4:16 AM CDT HGB A1C STAT 06/07/2020 9:17 AM CDT from Last 3 Months or Most Recently Relevant to Health Maintenance Results * (ABNORMAL) PAP Test (04/11/2023 2:16 PM IDEA WORKER) Case Report Pap Case: [id number] Authorizing Provider: Kristin Sands PA-C Collected: 04/11/2023 1416 [facility]ing Location[facility] Received: 04/11/2023 1434 Oncology First Screen: Rosamaria Bangura Pathologist: Williams Rodriguez MD Specimen: Pap Test, Routine, Cervix/Endocervix 05/08/2023 5:04 PM CDT [facility] Pap Specimen Adequacy Satisfactory for evaluation, endocervical/peck sformation zone component absent. 05/08/2023 5:04 PM CDT [facility] Pap Interpretation (LSIL) Low-grade squamous intraepithelial lesion, encompassing HPV/mild dysplasia/UNRULY 1.(A) 05/08/2023 5:04 PM CDT [facility] Pap Disclaimer The Pap test is a screening test to aid in the detection of cervical and vaginal cancers and their precursor lesions. It is not a diagnostic procedure and should not be used as the sole means of detecting malignancy. Both false-positive and false-negative results may occur. 05/08/2023 5:04 PM CDT [facility] Gross Description The specimen is received in SurePath fixative and properly labeled. 1 Pap-stained SurePath slide is prepared. 05/08/2023 5:04 PM CDT [facility] Embedded Images 5:04 PM CDT [facility] Other Specimen Type ENTIRE ENDOCERVIX / Unknown 04/11/2023 2:16 PM IDEA WORKER 04/11/2023 2:34 PM IDEA WORKER Comment:LMP: Patient's last menstrual period was 05/25/2020 (lmp unknown). S/p chemo-RT for cervical cancer Kristin Sands PA-C LAB PATHOLOGY [facility] [address] * HIV 1/2 Ag/Ab 4th Generation (09/05/2020 11:15 AM CDT) [facility] HIV 1/2 Antigen/Antib elizabeth (4th generation) Negative (Non Reactive) Negative (Non Reactive) 09/05/2020 12:11 PM CDT [facility] Comment:HIV-1 p24 Antigen an d HIV-1/HIV-2 Antibody not detected Blood Venipuncture / Unknown 09/05/2020 11:15 AM CDT 09/05/2020 11:30 AM CDT Benita Sanderson APRN, CNP LAB_1 Performing Organization Address [facility] Co de Phone Number [facility] * (ABNORMAL) LIPID PANEL AND DIRECT LDL(IF NEEDED) (08/27/2020 4:16 AM CDT) [facility] Cholesterol 110 0 - 199 mg/dL 08/27/2020 4:51 AM CDT [facility] Triglyceride 258(H) <=149 mg/dL 08/27/2020 4:51 AM CDT [facility] HDL Cholesterol 27(L) >=40 mg/dL 4:51 AM CDT [facility] LDL, Calculated 31 <130 mg/dL 4:51 AM CDT [facility] Non HDL Chol, Calculated 83 <=159 mg/dL 08/27/2020 4:51 AM CDT [facility] Cholesterol/HDL Ratio 4.1 08/27/2020 4:51 AM CDT [facility] Blood Venipuncture / Unknown 08/27/2020 4:16 AM CDT 08/27/2020 4:29 AM CDT [facility] LAB_1 Performing Organization Address City/[facility]/ZIP Co de Phone Number [facility] [address] * (ABNORMAL) HGB A1C (06/07/2020 9:17 AM CDT) [facility] Hemoglobin A1C 6.2(H) <=5.6 % 06/07/2020 2:48 PM CDT [facility] Blood Venipuncture / Unknown 06/07/2020 9:17 AM CDT 06/07/2020 9:31 AM CDT Narrative [facility] [place] [facility] - 06/07/2020 2:48 PM CDT For patients not previously diagnosed with diabetes: 5.7-6.4%: Increased risk for diabetes 6.5% and greater: Diagnostic for diabetes For patients diagnosed with diabetes: <8.0%: Goal of therapy for ages 18-75 Clinicians may recommend a higher or lower goal for specific individuals. Onel You MD LAB_1 [facility] [address] [address], [facility] [phone] from Last 3 Months or Most Recently [...] 10:21 AM 06/08/2020 8:18 PM Care Teams Quality Control Director Relationship Specialty Start Date End Date Fadi Quick MD [address] [place] [address] PCP - General Family Practice 06/06/20
--- OUTSIDE RECORDS SUMMARY | 2024-01-19 21:44 | XMS_ITS | Encounter Summary ---
Author Organization [facility] Address [address] [address] Care Team Providers Care Sports Anchor Name Role Phone Fadi Quick MD Primary Care Provider [phone] Encounter Details Date Type Department Care Team (Late Contact Info) Description 10/30/2016 Flowsheet [facility] [address] [place] [address] Provider, Not On File [address] [place] [address] HH CONTRAST INJECTION ASSESSMENT Social History Tobacco [...] Upcoming Encounters Date Type Department Care Team ([facility] Contact Info) Description 01/20/2024 1:20 PM SLOT MACHINE MECHANIC Appointment [facility] [place] [address] [place] [phone] Elisha Loyola, OD [address] [place] [address] Eye Exam documented as of this encounter [...] documented as of this encounter Care Teams Sports Anchor Relationship Specialty Start Date End Date Fadi Quick MD [address] [place] [address] PCP - General Family Practice 06/06/20 documented as of this encounter
--- OUTSIDE RECORDS SUMMARY | 2024-01-19 21:44 | XMS_ITS | Encounter Summary ---
Author Organization [facility] Address [address] [address] Care Team Providers Care Medical Equipment Repair Technician Name Role Phone Fadi Quick MD Primary Care Provider [phone] Encounter Details Date Type Department Care Team (Late Contact Info) Description 08/27/2017 Scanned History [facility] [address] [place], [place] [id number] Provider, Not On File [address] [place] [address] HH CONTRAST INJECTION ASSESSMENT Social History Tobacco [...] Upcoming Encounters Date Type Department Care Team ([facility] Contact Info) Description 01/20/2024 1:20 PM INTERIOR DESIGN DIRECTOR Appointment [facility] [place] [address] [place] [address] Elisha Loyola, OD [address] [place] [address] Eye Exam documented as of this encounter [...] as of this encounter Care Teams Medical Equipment Repair Technician Relationship Specialty Start Date End Date Fadi Quick MD [address] [place] [address] PCP - General Family Practice 06/06/20 documented as of this encounter
--- OUTSIDE RECORDS SUMMARY | 2024-01-19 21:44 | XMS_ITS | Encounter Summary ---
Author Organization [facility] Address [address], [place] [address] Care Team Providers Care Liner Reroll Tender Name Role Phone Fadi Quick MD Primary Care Provider [phone] Encounter Details Date Type Department Care Team (Late Contact Info) Description 09/22/1997 Orders Only [facility] [address] [place] [address] Samia Covington MD Social History Tobacco Use Types Packs/Day Years Used Date Smoking Tobacco: Never Assessed Sex and Gender Information Value Date Recorded Sex Assigned at Not on file Gender Identity Not on file Sexual Orientation Not on file documented as of this encounter Plan of Treatment Upcoming Encounters Date Type Department Care Team (Late Contact Info) Description 01/20/2024 1:20 PM PUBLIC POLICY ANALYST Appointment [facility] [place] [address] [place] [phone] Elisha Loyola, OD [address] [place] [address] Eye Exam documented as of this encounter [...] documented as of this encounter Care Teams Liner Reroll Tender Relationship Specialty Start Date End Date Fadi Quick MD [address] [place] [address] PCP - General Family Practice 06/06/20 documented as of this encounter
--- OUTSIDE RECORDS SUMMARY | 2024-01-19 21:44 | XMS_ITS | Encounter Summary ---
Author Organization [facility] Address [address] [place] [address] Care Team Providers Care Supply Service Worker Name Role Phone Cheyenne Choudhury MD Primary Care Provider Fadi Quick MD Primary Care Provider [phone] Encounter Details Date Type Department Care Team [...] Encounters Date Type Department Care Team ([facility] Contact Info) Description 05/04/2106 Records - [facility] CONVERSION Provider, Historical documented as of this encounter Visit Diagnoses Not on filedocumented in this encounter Additional Health Concerns Infection Onset Date Last Indicated Resolved Time Rule Out COVID-19 03/31/2022 03/31/2022 03/31/2022 8:51 PM BONE WORKER Rule Out COVID-19 04/20/2022 04/20/2022 04/20/2022 10:39 AM BONE WORKER documented as of this encounter Care Teams Supply Service Worker Relationship Specialty Start Date End Date Cheyenne Choudhury MD PCP - General Family Practice 08/12/16 05/19/20 Fadi Quick MD PCP - General Family Medicine 05/20/20 documented as of this encounter
--- OUTSIDE RECORDS SUMMARY | 2024-01-19 21:44 | XMS_ITS | Encounter Summary ---
Author Organization [facility] Address [address], [place] [address] Care Team Providers Care Track Laminating Machine Tender Name Role Phone Fadi Quick MD Primary Care Provider [phone] Encounter Details Date Type Department Care Team (Late Contact Info) Description 09/16/1997 Orders Only [facility] [address] [place] [address] Samia Covington MD Social History Tobacco Use Types Packs/Day Years Used Date Smoking Tobacco: Never Assessed Sex and Gender Information Value Date Recorded Sex Assigned at Not on file Gender Identity Not on file Sexual Orientation Not on file documented as of this encounter Plan of Treatment Upcoming Encounters Date Type Department Care Team (Late Contact Info) Description 01/20/2024 1:20 PM LINUX SECURITY ADMINISTRATOR Appointment [facility] [place] [phone] [place] [phone] Elisha Loyola, OD [address] [place] [address] Eye Exam documented as of this encounter [...] documented as of this encounter Care Teams Track Laminating Machine Tender Relationship Specialty Start Date End Date Fadi Quick MD [address] [place] [address] PCP - General Family Practice 06/06/20 documented as of this encounter
[2024-01-19 21:46] LABS: C Reactive Protein* 0.6 mg/dL (0.5-1.0)
[2024-01-19] MEDS: HYOSCYAMINE SULFATE 0.125 MG TAB 0.25 MG SUBLINGUAL (22:11)
[2024-01-19] MEDS: 0.9 % SODIUM CHLORIDE 500 ML 500 ML 1200 ML IV (22:17)
[2024-01-19] MEDS: OxyCODONE/APAP 5-325 TABLET 2 TAB PO (23:05)
[2024-01-19 23:13] LABS: Appearance Urine Clear (Clear); Bilirubin Urine Negative (Negative); Blood Urine Negative (Negative); Color Urine Yellow (Yellow); Glucose Urine Negative (Negative); Ketones Urine Negative (Negative); Leukocyte Esterase Urine Negative (Negative); Nitrite Urine Negative (Negative); Protein Urine Negative (Negative); Urobilinogen Urine 0.2 (0.2-1.0)
[2024-01-19 23:36] LABS: RBC Urine 0-2 (0-2); Squamous Epithelial Cell Urine Few (None-Few); WBC Urine 0-2 (0-5)
== END 2024-01-20 00:10 | disposition home or self-care (01) ==
PROVIDERS: Emergency Provider Family Medicine; PCP Family Medicine
DX: K52.9 Noninfective gastroenteritis and colitis, unspecified (principal)
CPT/HCPCS: 36415; 74177; 80048; 81001; 85025; 86140; 96374; 96375; 99284; A9270; J1171; J1885; J7030; Q9967

== ENCOUNTER 2024-12-09 14:51 | Outpatient (CLI) | payer MEDICAID, SELFPAY | END 2024-12-09 14:52 | disposition home or self-care (01) | PROVIDERS: PCP Family Medicine; Visit Provider Family Medicine | DX: Z00.00 Encounter for general adult medical examination without abnormal findings (principal); R53.83 Other fatigue; Z13.0 Encounter for screening for diseases of the blood and blood-forming organs and certain disorders involving the immune mechanism; Z13.29 Encounter for screening for other suspected endocrine disorder | CPT/HCPCS: 80053; 82607; 82728; 83540; 83550; 84443 ==

== ENCOUNTER 2024-12-23 11:18 | Outpatient (CLI) | payer MEDICAID, SELFPAY | END 2024-12-23 11:19 | disposition home or self-care (01) | LOC: FRMREF 11:19 | PROVIDERS: PCP Family Medicine; Visit Provider Family Medicine | DX: R82.998 Other abnormal findings in urine (principal) | CPT/HCPCS: 82043; 82570 ==